=== PATIENT | female | born 1960 | race Caucasian/White ===

== ENCOUNTER → 2020-03-29 08:49 | Outpatient (BNVA) | payer OTHER, SELFPAY | PROVIDERS: Family Provider Nurse Practitioner; PCP Nurse Practitioner; Visit Provider Nurse Practitioner | DX: I10 Essential (primary) hypertension (principal); E03.8 Other specified hypothyroidism; H10.10 Acute atopic conjunctivitis, unspecified eye; K21.9 Gastro-esophageal reflux disease without esophagitis; M81.0 Age-related osteoporosis without current pathological fracture; E78.2 Mixed hyperlipidemia; E66.09 Other obesity due to excess calories | CPT/HCPCS: 80053; 80061; 81000; 84443 ==

== ENCOUNTER 2020-05-17 09:38 | Outpatient (CLI) | payer OTHER, SELFPAY ==
--- NOTE | 2020-05-17 10:00 | MM_ITS ---
WS: [id number] BILATERAL DIGITAL SCREENING MAMMOGRAPHY WITH CAD CLINICAL INFORMATION: screen HISTORY: Screening mammogram. No current complaints. COMPARISON: TECHNIQUE: Bilateral CC and MLO views. FINDINGS: Scattered fibroglandular densities bilaterally. Partially obscured round density upper outer left cierra ast measuring 7.9 mm may represent a small cyst but indeterminant. RECOMMEND FURTHER EVALUATION WITH LEFT DIAGNOSTIC MAMMOGRAPHY SPOT COMPRESSION VIEWS AND ULTRASOUND. A few stable intramammary lymph nodes. A few stable bilateral ovoid nodular densities unchanged. Punc woodward calcifications left breast. MM/[place] [id number] IMPRESSION: BI-RADS: 0-Incomplete: Need additional imaging evaluation FOLLOW UP: Need Additional Imaging
== END 2020-05-17 09:39 | disposition home or self-care (01) ==
LOC: RADSHAW 09:40
PROVIDERS: PCP Nurse Practitioner; Visit Provider Nurse Practitioner
DX: Z12.31 Encounter for screening mammogram for malignant neoplasm of breast (principal); N63.21 Unspecified lump in the left breast, upper outer quadrant
CPT/HCPCS: 77067

== ENCOUNTER 2020-06-07 08:29 | Outpatient (CLI) | payer OTHER, SELFPAY ==
--- NOTE | 2020-06-07 08:00 | MM_ITS ---
WS: [id number] LEFT DIGITAL MAMMOGRAPHY WITH CAD CLINICAL INFORMATION: abnormal mammo COMPARISON: May 17, 2020 TECHNIQUE: 2 views of the left breast were obtained. FINDINGS: Scattered fibroglandular densities of the left breast. Again seen is the partially obscured round den sity upper outer left breast measuring 7.9 mm. This is unchanged since recent examination. Ultrasound is pending. A few stable ovoid nodular densities unchanged. Ultrasound is pending. . ULTRASOUND BREAST LEFT TECHNIQUE: Ultrasound left breast focused area of concern. CLINICAL INFORMATION: abnormal mammo COMPARISON: None. FINDINGS: Ultrasound left breast 12:00 position 2 cm from the nipple. Incidental echogenic lipoma measuring 9.7 x 8.1 x 1.1 CM. Incidental lymph node 2:00 position measuring 7.7x8.5 mm. No suspicious lesions. No lesions to target for biopsy. MM/[place] [id number] IMPRESSION: BI-RADS: 2-Benign FOLLOW UP: 1 Year Follow-up Recommend return to annual screening mammography.
--- NOTE | 2020-06-07 08:45 | US_ITS ---
WS: [id number] LEFT DIGITAL MAMMOGRAPHY WITH CAD CLINICAL INFORMATION: abnormal mammo COMPARISON: May 17, 2020 TECHNIQUE: 2 views of the left breast were obtained. FINDINGS: Scattered fibroglandular densities of the left breast. Again seen is the partially obscured round den sity upper outer left breast measuring 7.9 mm. This is unchanged since recent examination. Ultrasound is pending. A few stable ovoid nodular densities unchanged. Ultrasound is pending. . ULTRASOUND BREAST LEFT TECHNIQUE: Ultrasound left breast focused area of concern. CLINICAL INFORMATION: abnormal mammo COMPARISON: None. FINDINGS: Ultrasound left breast 12:00 position 2 cm from the nipple. Incidental echogenic lipoma measuring 9.7 x 8.1 x 1.1 CM. Incidental lymph node 2:00 position measuring 7.7x8.5 mm. No suspicious lesions. No lesions to target for biopsy. US/US breast LT limited* [id number] IMPRESSION: BI-RADS: 2-Benign FOLLOW UP: 1 Year Follow-up Recommend return to annual screening mammography.
== END 2020-06-07 08:30 | disposition home or self-care (01) ==
LOC: RADSHAW 08:33
PROVIDERS: PCP Nurse Practitioner; Visit Provider Nurse Practitioner
DX: R92.8 Other abnormal and inconclusive findings on diagnostic imaging of breast (principal)
CPT/HCPCS: 76642; 77065

== ENCOUNTER → 2020-07-04 15:03 | Outpatient (BNVA) | payer OTHER, SELFPAY | PROVIDERS: PCP Nurse Practitioner; Visit Provider Podiatrist Foot & Ankle Surgery | DX: M77.32 Calcaneal spur, left foot (principal); M79.672 Pain in left foot | CPT/HCPCS: 73630 ==

== ENCOUNTER → 2020-08-28 09:11 | Outpatient (BNVA) | payer OTHER, SELFPAY | PROVIDERS: PCP Nurse Practitioner; Visit Provider Nurse Practitioner | DX: E03.8 Other specified hypothyroidism (principal); I10 Essential (primary) hypertension; E78.2 Mixed hyperlipidemia | CPT/HCPCS: 80053; 84439; 84443; 84481 ==

== ENCOUNTER → 2020-09-01 13:57 | Outpatient (BNVA) | payer OTHER, SELFPAY | PROVIDERS: PCP Nurse Practitioner; Visit Provider Nurse Practitioner | DX: Z20.828 Contact with and (suspected) exposure to other viral communicable diseases (principal); U07.1 COVID-19 | CPT/HCPCS: 87635 ==

== ENCOUNTER → 2021-04-10 08:36 | Outpatient (BNVA) | payer OTHER, SELFPAY | PROVIDERS: PCP Nurse Practitioner; Visit Provider Nurse Practitioner | DX: I10 Essential (primary) hypertension (principal); E55.9 Vitamin D deficiency, unspecified; E03.8 Other specified hypothyroidism; K21.9 Gastro-esophageal reflux disease without esophagitis; M81.0 Age-related osteoporosis without current pathological fracture; F41.9 Anxiety disorder, unspecified | CPT/HCPCS: 80053; 80061; 81000; 82306; 82607; 82627; 84439; 84443; 84481; 85025 ==

== ENCOUNTER 2021-05-21 11:03 | Outpatient (CLI) | payer OTHER, SELFPAY ==
--- NOTE | 2021-05-21 11:00 | MM_ITS ---
WS: [id number] BILATERAL DIGITAL SCREENING MAMMOGRAPHY WITH CAD CLINICAL INFORMATION: annual mammo HISTORY: Screening mammogram. No current complaints. COMPARISON: May 17, 2020 TECHNIQUE: Bilateral CC and MLO views. FINDINGS: Scattered fibroglandular densities bilaterally. No suspicious focal mass, asymmetry, calcifications, or architectural distortion. No evidence of malignancy. A few punctate calcifications. MM/[place] [id number] IMPRESSION: BI-RADS: 2-Benign FOLLOW UP: 1 Year Follow-up Recommend return to annual screening mammography.
== END 2021-05-21 11:04 | disposition home or self-care (01) ==
LOC: RADSHAW 11:06
PROVIDERS: PCP Nurse Practitioner; Visit Provider Nurse Practitioner
DX: Z12.31 Encounter for screening mammogram for malignant neoplasm of breast (principal)
CPT/HCPCS: 77067

== ENCOUNTER → 2021-06-26 08:04 | Outpatient (BNVA) | payer OTHER, SELFPAY | PROVIDERS: PCP Nurse Practitioner; Referring Provider Nurse Practitioner; Visit Provider Internal Medicine | DX: E88.81 Metabolic syndrome and other insulin resistance (principal); E66.9 Obesity, unspecified; E03.8 Other specified hypothyroidism; E53.8 Deficiency of other specified B group vitamins; Z90.722 Acquired absence of ovaries, bilateral; Z90.79 Acquired absence of other genital organ(s) | CPT/HCPCS: 99205 ==

== ENCOUNTER → 2021-07-02 08:17 | Outpatient (BNVA) | payer OTHER, SELFPAY | PROVIDERS: PCP Nurse Practitioner; Visit Provider Internal Medicine | DX: E03.8 Other specified hypothyroidism (principal); E66.9 Obesity, unspecified; E88.81 Metabolic syndrome and other insulin resistance; Z90.722 Acquired absence of ovaries, bilateral; Z90.79 Acquired absence of other genital organ(s); E53.8 Deficiency of other specified B group vitamins | CPT/HCPCS: 82627; 83036; 84439; 84443 ==

== ENCOUNTER → 2021-07-03 08:03 | Outpatient (BNVA) | payer OTHER, SELFPAY | PROVIDERS: PCP Nurse Practitioner; Visit Provider Nurse Practitioner | DX: R10.9 Unspecified abdominal pain (principal) | CPT/HCPCS: 80076 ==

== ENCOUNTER 2021-08-14 07:56 | Outpatient (CLI) | payer OTHER, SELFPAY ==
--- NOTE | 2021-08-14 08:00 | US_ITS ---
WS: [id number] ULTRASOUND ABDOMEN CLINICAL INFORMATION: R10.9 - Unspecified abdominal pain COMPARISON: None. FINDINGS: Liver Size: Normal. Craniocaudal length: 14.2 cm. Echogenicity: Normal. Surface nodularity: None. Mass (size and location): None. Bile ducts Intrahepatic ducts: Normal. Common bile duct diameter: 0.6 cm. Gallbladder Prior cholecystectomy. Pancreas Normal as visualized. Spleen Splenomegaly: None. Craniocaudal length: 10.6 cm. Right kidney: Normal. Hydronephrosis: None. Size: 11.8 cm x 5.8 cm x 4.5 cm Left kidney: Normal. Hydronephrosis: None. Size: 12.4 cm x 5.2 cm x 4.6 cm. Abdominal aorta and IVC Visualized portions are normal. Ascites: None. US/US abdomen complete* [id number] IMPRESSION: 1. Normal liver. 2. Prior cholecystectomy. 3. Normal common bile duct. 4. No hydronephrosis in either kidney.
== END 2021-08-14 07:57 | disposition home or self-care (01) ==
LOC: US 07:59
PROVIDERS: PCP Nurse Practitioner; Visit Provider Nurse Practitioner
DX: R10.9 Unspecified abdominal pain (principal); Z90.49 Acquired absence of other specified parts of digestive tract
CPT/HCPCS: 76700

== ENCOUNTER → 2021-08-20 09:13 | Outpatient (BNVA) | payer OTHER, SELFPAY | PROVIDERS: PCP Nurse Practitioner; Visit Provider Internal Medicine | DX: E03.8 Other specified hypothyroidism (principal); I10 Essential (primary) hypertension; E88.81 Metabolic syndrome and other insulin resistance | CPT/HCPCS: 80053; 80061; 82627; 84439; 84443 ==

== ENCOUNTER 2021-10-07 20:47 | Emergency (ER) | payer OTHER, SELFPAY ==
--- NOTE | 2021-10-07 20:51 | ECG_ITS ---
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 Measurements Intervals [place] Rate: 66 P: 67 WI: 168 QRS: 68 QRSD: 101 T: 78 QT: 396 QTc: 415 Interpretive Statements SINUS RHYTHM Compared to ECG 10/07/2021 20:56:13 No significant changes Electronically Signed On 10-07-2021 23:58:02 FRUIT CULLER by Boston Murillo M.D. [id number]
--- NOTE | 2021-10-07 20:51 | XRR_ITS ---
PROCEDURE INFORMATION: Exam: XR Chest Exam date and time: 10/07/2021 8:51 PM Age: 61 years old Clinical indication: Angina; Patient HX: Chest heaviness today; Additional info: Cp TECHNIQUE: Imaging protocol: XR of the chest. Views: 1 view. COMPARISON: MRI Shoulder w/wo LEFT [id number] 06/14/2018 1:02 PM FINDINGS: Lungs: Lungs are clear. Pleural spaces: There is no pleural effusion or pneumothorax. Heart/Mediastinum: Cardiomediastinal contours are unremarkable. Bones/joints: There is moderate degenerative disease at the left shoulder. XR/XR chest 1V portable [id number] IMPRESSION: No acute findings.
[2021-10-07 20:59] VITALS: BP 161/92; PULSE 77; RESP 18; TEMP 36.8; O2SAT 95; BMI 33.5
[2021-10-07 21:25] LABS: Basophils # 0.1 10^3/uL (0.0-0.1); Eosinophils # 0.3 10^3/uL (0.0-0.8); Eosinophils % 3.2 %; Hematocrit 41.7 % (37.0-47.0); Hemoglobin 13.8 g/dL (11.5-15.3); Lymphocytes # 3.4 10^3/uL (0.8-4.8); Lymphocytes % 40.3 %; Mean Corpuscular HGB Conc 33.1 g/dL (30.0-36.0); Mean Corpuscular Hemoglobin 29.1 pg (28.0-34.0); Mean Corpuscular Volume 87.8 fl (81-99); Mean Platelet Volume 9.5 fL (7.4-10.4); Monocytes # 0.7 10^3/uL (0.2-0.9); Monocytes % 7.8 %; Neutrophils # 3.93 10^3/uL (1.8-7.7); Neutrophils % 47.2 %; Nucleated Red Blood Cells % 0 %; Platelet Count 258 10^3/cmm (130-400); Red Blood Count 4.75 10^6/uL (4.1-5.3); Red Cell Distribution Width 14.1 % (12.1-15.1); White Blood Count 8.3 10^3/uL (4.0-10.0)
[2021-10-07 21:44] LABS: Troponin(5th) Baseline 6 ng/L (0-10)
[2021-10-07 21:45] LABS: Alanine Aminotransferase 22 U/L (0-33); Albumin Level 4.3 g/dL (3.5-5.2); Alkaline Phosphatase 91 IU/L (35-105); Aspartate Amino Transferase 17 U/L (0-32); Blood Urea Nitrogen 14 mg/dL (8-23); Calcium 8.9 mg/dL (8.5-10.5); Carbon Dioxide 27 mmol/L (22-29); Chloride 102 mmol/L (98-107); Globulin 2.2 g/dL (1.3-4.6); Glomerular Filtration Rate 84.8 mL/min (90-130); Glucose 114 mg/dL (65-115); Osmolality Calculated 289 mOsm/kg (285-295); Sodium 139 mmol/L (136-145); Total Bilirubin 0.2 mg/dL (0.15-1.2); Total Protein 6.5 g/dL (6.6-8.7)
--- NOTE | 2021-10-07 22:51 | ECG_ITS ---
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 Measurements Intervals [place] Rate: 77 P: 61 RI: 144 QRS: 69 QRSD: 93 T: 82 QT: 365 QTc: 415 Interpretive Statements SINUS RHYTHM No previous ECG available for comparison Electronically Signed On 10-08-2021 17:28:01 HEALTH AND SAFETY INSTRUCTOR by Rivka De Oliveira M.D. [id number]
[2021-10-07 23:35] LABS: Troponin 5 2HR 6.12 ng/L (0-10); Troponin 5 2HR Delta 0.12 ABS# (0-10)
--- NOTE | 2021-10-08 00:25 | ED_ITS ---
HPI - Chest Pain General: Chief Complaint: Chest Pain Stated Complaint: CP Time Seen by Provider: 10/08/21 00:02 Source: patient Mode of arrival: ambulatory Limitations: no limitations History of Present Illness: HPI narrative: 61-year-old female who states that she has been having chest pain over the last day. States that has been the center of her chest along with her upper abdomen and seem to radiate to her shoulder. She states that it is a pressure type pain and went away at home and came back when she been waiting in the waiting room she is currently pain-free. States she is also had some belching does have a history of reflux with his pain is worse than her typical reflux pain. She denies any shortness of breath denies any worsening proving factors does have a history of high blood pressure no heart history but does have a family history of heart disease. Associated symptoms: Reports abdominal pain; Deny dyspnea, fever(s), nausea or vomiting Review of Systems Const: Denies: fever(s), chills, body aches or change in appetite Eyes: Denies: blurry vision or eye discomfort ENMT: Denies: throat pain or dental pain Card: Reports: chest pain Resp: Denies: dyspnea GI: Reports: abdominal pain; Denies: nausea, vomiting or diarrhea : Denies: dysuria Musc: Denies: neck pain or back pain Skin/Breast: Denies: rash Neuro: Denies: headache(s) Psych: Denies: depression Yahir/Lymph: Denies: easy bruising All/Imm: Denies: urticaria PFSH ED PFSH: Medical History Adult onset hypothyroidism Age related osteoporosis Anxiety Chronic constipation Chronic osteoarthritis Essential (primary) hypertension Gastric reflux High risk for fracture due to osteoporosis by DEXA scan Hx MRSA infection Hx of diverticulitis of colon Mixed hyperlipidemia Obesity (BMI 35.0-39.9 without comorbidity) Obesity due to excess calories with serious comorbidity Obstructive sleep apnea cpap Seasonal allergic conjunctivitis Surgical History History of esophagogastroduodenoscopy (EGD) History of kidney surgery (~1993) Hx of cholecystectomy (~1997) Hx of hysterectomy (~1994) Hx of tonsillectomy Family History Other Cancer Diabetes Hypertension Denies family history of Dementia Stroke Social History Second hand smoke exposure: No Smoking risk assessment/counseling performed?: No Alcohol intake: never Desire information about alcohol rehabilitation?: No Counseling given: No Desire information about substance/drug rehabilitation?: No Counseling given: No Adopted: No Caregiver/support person: No Lives independently: Yes Household members: spouse Housing: House Marital status: Number of children: 2 service: No Current occupational status: retired History of recent travel: No Current gender identity: Female Physical Exam Const: COMMON NORMALS: no acute distress, patient oriented x3 and healthy appearing HENMT: COMMON NORMALS: normocephalic and atraumatic HEAD & SCALP: normocephalic and atraumatic Eye: COMMON NORMALS: Equal, round and reactive pupils present and EOMs intact bilaterally PUPIL: Yes Equal, round and reactive pupils present Neck/C-Spine: COMMON NORMALS: full ROM and supple Chest: COMMONS NORMALS: normal inspection of the chest and normal palpation of entire chest wall Resp: COMMON NORMALS: normal respiratory effort, No retractions, No use of accessory muscles and clear to auscultation bilaterally AUSCULTATION: clear to auscultation bilaterally Cardio: COMMON NORMALS: regular rate, regular rhythm and No murmurs present (Cardio) RATE: regular rate RHYTHM: regular rhythm GI: COMMON NORMALS: Normal to inspection, nondistended, normoactive bowel sounds present, Soft to palpation, non-tender and no masses PALPATION: Yes Soft to palpation Extremity: COMMON NORMALS: normal to inspection and full ROM Neuro: COMMON NORMALS: patient oriented x3, moves all extremities and no focal motor deficits Psych: COMMON NORMALS: mental status grossly normal, Normal thought process present and cooperative THOUGHT PROCESS: Normal thought process present Skin: COMMON NORMALS: no rashes or lesions noted and no wounds GENERAL SKIN EXAM: no rashes or lesions noted Course Vital Signs: Vital signs: Vital Signs Temperature 98.3 F 10/07/21 20:59 Pulse Rate 77 10/07/21 20:59 Respiratory Rate 18 10/07/21 20:59 Blood Pressure 161/92 10/07/21 20:59 Pulse Oximetry 95 10/07/21 20:59 MDM - Chest Pain MDM Narrative: Medical decision making narrative: Patient presents for chest pains atypical in nature her initial repeat troponin are both negative x-ray looks normal as well she has no signs of pulmonary embolism or dissection. We will get her follow-up with cardiology she is return if she has any worsening pain she understands agrees to plan. Lab Data: Labs: Lab Results 10/07/21 10/07/21 10/07/21 21:05 21:05 21:05 WBC 8.3 10^3/uL 10^3/ uL (4.0-10.0) RBC 4.75 10^6/uL 10^6 /uL (4.1-5.3) Hgb 13.8 g/dL g/dL (11.5-15.3) Hct 41.7 % % (37.0-47.0) MCV 87.8 fl fl (81-99) MCH 29.1 pg pg (28.0-34.0) MCHC 33.1 g/dL g/dL (30.0-36.0) RDW 14.1 % % (12.1-15.1) Plt Count 258 10^3/cmm 10^3 /cmm (130-400) MPV 9.5 fL fL (7.4-10.4) Neut % (Auto) 47.2 % % Lymph % (Auto) 40.3 % % [place] % (Auto) 7.8 % % Eos % (Auto) 3.2 % % Baso % (Auto) 1.0 % % Neut # (Auto) 3.93 10^3/uL 10^3 /uL (1.8-7.7) Lymph # (Auto) 3.4 10^3/uL 10^3/ uL (0.8-4.8) [place] # (Auto) 0.7 10^3/uL 10^3/ uL (0.2-0.9) Eos # (Auto) 0.3 10^3/uL 10^3/ uL (0.0-0.8) Baso # (Auto) 0.1 10^3/uL 10^3/ uL (0.0-0.1) Nucleated RBC % (a uto) 0 % % Nucleated RBCs # 0.0 /100WBC /100W BC Sodium 139 mmol/L mmol/L (136-145) Potassium 4.0 mmol/L mmol/L (3.5-5.1) Chloride 102 mmol/L mmol/L (98-107) Carbon Dioxide 27 mmol/L mmol/L (22-29) Anion Gap 14.0 (5-19) BUN 14 mg/dL mg/dL (8-23) Creatinine 0.7 mg/dL mg/dL (0.5-0.9) GFR Calculation 84.8 mL/min L mL/ min (90-130) Glucose 114 mg/dL mg/dL (65-115) Calculated Osmolal ity 289 mOsm/kg mOsm/ kg (285-295) Calcium 8.9 mg/dL mg/dL (8.5-10.5) Total Bilirubin 0.2 mg/dL mg/dL (0.15-1.2) AST 17 U/L U/L (0-32) ALT 22 U/L U/L (0-33) Alkaline Phosphata se 91 IU/L IU/L (35-105) Troponin T Baselin e 6 ng/L ng/L (0-10) Troponin T 120 Min [place] Troponin T Total Protein 6.5 g/dL L g/dL (6.6-8.7) Albumin 4.3 g/dL g/dL (3.5-5.2) Globulin 2.2 g/dL g/dL (1.3-4.6) Lipase 10/07/21 10/07/21 23:02 23:02 WBC RBC Hgb Hct MCV MCH MCHC RDW Plt Count MPV Neut % (Auto) Lymph % (Auto) [place] % (Auto) Eos % (Auto) Baso % (Auto) Neut # (Auto) Lymph # (Auto) [place] # (Auto) Eos # (Auto) Baso # (Auto) Nucleated RBC % (a uto) Nucleated RBCs # Sodium Potassium Chloride Carbon Dioxide Anion Gap BUN Creatinine GFR Calculation Glucose Calculated Osmolal ity Calcium Total Bilirubin AST ALT Alkaline Phosphata se Troponin T Baselin e Troponin T 120 Min [place] 6.12 ng/L ng/L (0-10) [place] Troponin T 0.12 ABS# ABS# (0-10) Total Protein Albumin Globulin Lipase 49 U/L U/L (13-60) Imaging Data^: CXR: Attestation: I personally reviewed and interpreted this imaging study as follows: My impression: no acute abnormality EKG Data^: EKG 1: Attestation: I personally reviewed and interpreted this EKG as follows: EKG interpretation date: 10/07/21 EKG interpretation time: 20:56 Interpretation: nsr hr [address] or t wave abnormalities qrs 93 qtc 397 EKG 2: Attestation: I personally reviewed and interpreted this EKG as follows: EKG interpretation date: 10/07/21 EKG interpretation time: 23:31 Interpretation: nsr hr [address] or t wave abnormalities qrs 101 qtd 409 Discharge Plan Discharge Patient Disposition: Home Clinical Impression: Chest pain Qualifiers: Chest pain type: unspecified Qualified Code(s): R07.9 - Chest pain, unspecified Condition: Stable Prescriptions: No Action aspirin [Adult Aspirin Regimen] 81 mg tablet,delayed release (DR/EC) 81 mg PO DAILY RF: 0 cholecalciferol (vitamin D3) 1,250 mcg (50,000 unit) capsule 50,000 unit PO .weekly RF: 0 vitamin K2 100 mcg capsule 100 mcg PO .weekly RF: 0 potassium gluconate 600 mg (99 mg) tablet 600 mg PO DAILY RF: 0 magnesium 500 mg tablet 500 mg PO DAILY RF: 0 multivitamin Tablet 1 tab PO DAILY RF: 0 ashwagandha root extract 300 mg capsule 5,200 mg PO DAILY RF: 0 fluticasone propionate [Flonase Allergy Relief] 50 mcg/actuation spray,suspension 2 spray intranasal DAILY RF: 0 coenzyme [id number] 100-100 mg-unit capsule 100 cap PO DAILY RF: 0 pyridoxine (vitamin B6) 100 mg tablet 50 mg PO DAILY RF: 0 MSM 1,000 mg capsule 1,000 mg PO ONCE RF: 0 7-oxo-dhea, micronized (bulk) [7-Keto DHEA, Micronized] 100 % powder 100 ea miscellaneous DAILY RF: 0 zolpidem [Ambien] 5 mg tablet 5 mg PO .bedtime Qty: 30 RF: 4 levothyroxine 50 mcg tablet 50 mcg PO DAILY Qty: 95 RF: 3 cetirizine [Zyrtec] 10 mg tablet 10 mg PO DAILY Qty: 90 RF: 0 esomeprazole magnesium [Nexium] 20 mg capsule,delayed release(DR/EC) 20 mg PO QDAY Qty: 90 RF: 0 ibandronate [Boniva] 150 mg tablet 150 mg PO .monthly Qty: 3 RF: 0 lisinopril 10 mg tablet 10 mg PO DAILY Qty: 90 RF: 0 pravastatin 20 mg tablet 20 mg PO DAILY Qty: 90 RF: 0 Discharge Orders: Discharge ED (Routine); Ordered 10/08/21 Ordered By: Fabio Mars Referrals: Lisette Sheehan, RAILROAD DESIGN CONSULTANT-C [Primary Care Provider] - Rivka De Oliveira MD [Physician] - 1-3 days Discharge Diet: Advance as tolerated Discharge Activity: Resume usual activity Patient Instructions: Chest Pain (ED) Coding Level of Care Code ED Refrigerating Oiler for Chg Fwd Exam Comprehensive
[2021-10-08] MEDS: lidocaine 2% viscous 15 ML, aluminum-mag hydrox-simethicon 30 ML, sucralfate oral liq 1 GM PO (00:29)
[2021-10-08 01:12] LABS: Lipase 49 U/L (13-60)
[2021-10-08 01:41] VITALS: BP 128/80; PULSE 68; RESP 18; O2SAT 95
--- NOTE | 2021-10-08 12:39 | DCPLANNER ---
Addendum entered by Megan Perkins 11/08/21 13:10: Patient had a [facility] appointment scheduled with [facility] - patient did attend appointment. Original Note: is/it project manager had message to schedule a follow up appointment for patient with [facility]. is/it project manager called [facility], spoke with Amparo, gave clinic patients information. A follow up appointment was scheduled for October 282021 at 12:[address] De Oliveira at [facility]. is/it project manager called patient and gave patient the appointment information.
== END 2021-10-08 01:42 | disposition home or self-care (01) ==
PROVIDERS: Emergency Provider Emergency Medicine; PCP Nurse Practitioner
DX: R07.9 Chest pain, unspecified (principal); Z79.82 Long term (current) use of aspirin; I10 Essential (primary) hypertension; E78.2 Mixed hyperlipidemia
CPT/HCPCS: 71045; 80053; 83690; 84484; 85025; 93005; 99283

== ENCOUNTER 2021-12-03 11:29 | Outpatient (CLI) | payer OTHER, SELFPAY ==
--- NOTE | 2021-12-03 | USCV_ITS ---
Dobutamine Stress Echo Bela Jennings Age: 61 Gender: F : 1960 Exam Date: 12/03/2021 12:24 Ordering Phys: Rivka De Oliveira MD ([email or web address]) Technologist: Riley Malcolm Exam Location: [facility] [place] Indication: Chest pain Rhythm: Atrial fibrillation Patient History: Chest pain Cardiac Medications: NONE Medications in past 24 hours: Contrast: Total Dose (mL): Stress Results Protocol: Pharmacologic Peak Dose (???g/kg/min): Duration (min:sec): 7:22 Atropine:(mg) Target HR: 134 Double Product: 62120 Resting HR: 62 Resting BP: 111 / 84 Peak HR: 136 Peak BP: 124 / 84 Max Predicted HR: 158 86 % Max Predicted HR Stress Summary: The hemodynamic response to stress was normal. BP Response: Normal Reason for Termination: The patients target heart rate was achieved Cardiac Symptoms: None ECG Analysis Resting EKG: Stress EKG: Arrhythmia: MEASUREMENTS (Male/Female) Normal Values FINDINGS 1. At the baseline, the patient's blood pressure was 111/84 mmHg with a heart rate of 62 beats per minute. The electrocardiogram showed normal sinus rhythm with normal ST-Ts. The chest examination revealed normal breath sounds with no rales or rhonchi. The CVS examination revealed normal heart sounds with no S3 or S4. 2. The Dobutamine was infused over 7 minutes 22 minutes minutes. The maximum heart rate obtained was 136 per minute. The patient attained 86% of the maximum predicted heart rate. The blood pressure at the end of the infusion was 103/56 mmHg. Patient did not have any chest pain or any significant electrocardiogram changes with the Dobutamine infusion. The physical examination remained unchanged. No arrhythmias were seen on the monitor. 3. At the baseline, the patient's echocardiogram revealed normal cardiac chamber sizes with normal LV ejection fraction of 60%. Segmental wall motion analysis revealed no regional wall motion abnormality. There were no intracardiac masses. No significant pericardial effusion. Aortic root appears to be upper limits of normal size. 4. With the low and the peak Dobutamine infusion, there was good augmentation of all the segments with no Dobutamine-induced wall motion abnormalities. 5. During the recovery phase, the patient did not have any symptoms or any EKG changes. The blood pressure at the end of the recovery phase was 114/56 mmHg with a heart rate of 84 beats per minute. 6. The echocardiogram during the recovery phase also did not reveal any new changes. CONCLUSIONS 1. Normal electrocardiogram response to Dobutamine infusion. 2. Normal echocardiographic response to Dobutamine infusion. 3. No Dobutamine-induced chest pain or cardiac arrhythmia. 4. Clinical correlation is recommended. Rivka De Oliviera MD (Electronically Signed) Final Date: 09 December 2021 12:31 S
[2021-12-03 11:58] VITALS: BMI 34.7
--- NOTE | 2021-12-03 11:58 | ECG_ITS ---
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 Interpretive Statements NAME OF STUDY: DOBUTAMINE STRESS ECHOCARDIOGRAM INDICATION: Chest Pain PROCEDURE: At the baseline, the blood pressure was 111/84 mmHg, oxygen saturation 92% with a heart rate of 62 beats per minute. The electrocardiogram showed normal sinus rhythm, normal axis with normal ST and T's. The dobutamine was infused over a period of 7 minutes 22 seconds. The maximum heart rate obtained was 136 (86% of the maximum predicted heart rate). The blood pressure at that time was 103/56 mmHg and oxygen saturation of 95%. The patient did not have any chest pain or any significant electrocardiogram changes with the dobutamine infusion. The physical examination remained unchanged. No arrhythmias were seen on the monitor. During the recovery phase, the patient did not have any specific symptoms. The blood pressure at the end of the recovery phase was 114/56 mmHg, oxygen saturation 93% with a heart rate of 84 beats per minute. CONCLUSION: 1. No significant EKG changes with dobutamine infusion. 2. No patient symptoms or arrhythmias with dobutamine infusion. 3. Functional status could not be assessed given pharmacological protocol. 4. Echocardiogram portion of the study will be reported separately. Electronically Signed On 12-07-2021 12:58:12 CDT by Rivka De Oliveira M.D. [id number]
[2021-12-03] MEDS: DOBUTtamine 200 MG in sodium chloride 0.9% 34 ML 13 MG IV (12:27)
[2021-12-03 12:54] VITALS: BP 114/56; PULSE 82
== END 2021-12-03 11:30 | disposition home or self-care (01) ==
LOC: RAD 11:44 → CDL 11:57
PROVIDERS: PCP Nurse Practitioner; Visit Provider Internal Medicine Cardiovascular Disease
DX: R07.9 Chest pain, unspecified (principal)
CPT/HCPCS: 93017; 93350; J1250; J7050

== ENCOUNTER → 2021-12-06 09:53 | Outpatient (BNVA) | payer OTHER, SELFPAY | PROVIDERS: PCP Nurse Practitioner; Visit Provider Surgery | DX: Z20.822 Contact with and (suspected) exposure to COVID-19 (principal); Z01.812 Encounter for preprocedural laboratory examination | CPT/HCPCS: 87635 ==

== ENCOUNTER 2021-12-11 08:06 | Day surgery (SDC) | payer OTHER, SELFPAY ==
[2021-12-09 09:28] VITALS: BMI 34.7
--- NOTE | 2021-12-11 08:41 | P.ANESASSM_ITS ---
Pre-Anesthetic Assessment Height/Weight: Height 1.57 m Weight 86.183 kg Preop Diagnosis: upper gi symptoms Operation Date: 12/11/21 09:30 Proposed Procedures p EGD 58766/11197/z12.11/r10.13(Not Applicable) - Scotty Lopez MD s Colonoscopy(Not Applicable) - Scotty Lopez MD Familial anesthetic complications: None Was Beta Ariel taken within 24 hours: N/A Was Clonidine taken within 24 hours: N/A Last intake: 12/10/21 Social No alcohol and No tobacco Exam alert, oriented x 3 and regular rate & rhythm Diminished breath sounds b/l Airway Submandibular: within normal limits Cervical ROM: within normal limits Mallampati: Class II Dentition: false Pulmonary Exertional Dyspnea and Sleep Apnea CV/HEM METS = 4 Stress Test 12/07/21 CONCLUSION: 1.? No significant EKG changes with dobutamine infusion. 2.? No patient symptoms or arrhythmias with dobutamine infusion. 3.? Functional status could not be assessed given pharmacological protocol. 4.? Echocardiogram portion of the study will be reported separately. Hx of kidney surgery Hepatic None reported GI Gastroesophageal Reflux Disease Metabolic Thyroid Disease [facility] [place] Osteoarthritis/DJD Neuropsych Anxiety Anesthetic Plan ASA status: 3 (61 year old female with FIGUEROA on CPAP, former smoker, reflux, htn, anxiety , osteoporosis ) Anesthesia: Anesthesia Evaluation and General Other: I discussed with the patient risks, goals, and benefits of MAC and general anesthesia. We discussed spectrum of MAC anesthesia including conversion to general as well as possibility of recall of intraoperative stimuli including discomfort/pain. Patient agrees to proceed with MAC. Risk of > 500 ml blood loss (7ml/kg in children): No Medications/Allergies Home Medications Medication Instructions Recorded Confirmed Last Taken Type zolpidem 5 mg tablet (Ambien) 5 mg PO .bedtime #30 tab 05/10/21 12/09/21 Unknown Rx ashwagandha root extract 300 mg 5,200 mg PO DAILY cap 06/26/21 12/09/21 Unknown History capsule aspirin 81 mg tablet,delayed 81 mg PO DAILY 06/26/21 12/09/21 Unknown History release (Adult Aspirin Regimen) cholecalciferol (vitamin D3) 1,250 50,000 unit PO .weekly cap 06/26/21 12/09/21 Unknown History mcg (50,000 unit) capsule coenzyme [id number] 100 mg-100 100 cap PO DAILY cap 06/26/21 12/09/21 Unknown History unit capsule fluticasone propionate 50 2 spray INTRANASAL DAILY PRN 06/26/21 12/09/21 Unknown History mcg/actuation nasal spray,suspension (Flonase Allergy Relief) magnesium 500 mg tablet 400 mg PO DAILY tab 06/26/21 12/09/21 Unknown History multivitamin 1 tab PO DAILY 06/26/21 12/09/21 Unknown History potassium gluconate 600 mg (99 mg) 600 mg PO DAILY 06/26/21 12/09/21 Unknown History tablet pyridoxine (vitamin B6) 100 mg 50 mg PO DAILY 06/26/21 12/09/21 Unknown History tablet vitamin K2 100 mcg capsule 100 mcg PO .weekly cap 06/26/21 12/09/21 Unknown History levothyroxine 50 mcg tablet 50 mcg PO DAILY #95 tab 07/17/21 12/09/21 Unknown Rx cetirizine 10 mg tablet (Zyrtec) 10 mg PO DAILY #90 tab 09/27/21 12/09/21 Unknown Rx ibandronate 150 mg tablet (Boniva) 150 mg PO .monthly #3 tab 09/27/21 12/09/21 Unknown Rx pravastatin 20 mg tablet 20 mg PO DAILY #90 tab 09/27/21 12/09/21 Unknown Rx Corti-trim 1 cap PO TID 10/28/21 12/09/21 Unknown History Fish oil 1 cap PO TID 10/28/21 12/09/21 Unknown History Glouse Formula 2 cap PO DAILY 10/28/21 12/09/21 Unknown History Internal cleanser 2 cap PO BID 10/28/21 12/09/21 Unknown History MRC-6 1 cap PO TID 10/28/21 12/09/21 Unknown History Oscal wD3 1 tab PO DAILY 10/28/21 12/09/21 Unknown History Phentratrim Plus 2 cap PO DAILY 10/28/21 12/09/21 Unknown History Total women oil 1 cap PO TID 10/28/21 12/09/21 Unknown History Trace mineral 2 cap PO DAILY 10/28/21 12/09/21 Unknown History lisinopril 10 mg tablet 10 mg PO DAILY tab 10/29/21 12/09/21 Unknown History furosemide 20 mg tablet (Lasix) 20 mg PO QAM PRN #30 tab 11/29/21 12/09/21 Unknown Rx esomeprazole magnesium 20 mg 20 mg PO BID 12/09/21 12/09/21 Unknown History capsule,delayed release (Nexium) Allergies Allergy/AdvReac Type Severity Reaction Status Date / Time Sulfa (Sulfonamide AdvReac Intermediate anxiety Verified 12/09/21 09:18 Antibiotics) [facility] Anesthesia Medical History Adult onset hypothyroidism Age related osteoporosis Anxiety Chronic constipation Chronic osteoarthritis Essential (primary) hypertension Gastric reflux Hx MRSA infection Hx of diverticulitis of colon Mixed hyperlipidemia Obstructive sleep apnea cpap Seasonal allergic conjunctivitis Surgical History History of colonoscopy History of esophagogastroduodenoscopy (EGD) History of kidney surgery (~1993) Hx of cholecystectomy (~1997) Hx of hysterectomy (~1994) Hx of tonsillectomy Family History Other Cancer Diabetes Hypertension Denies family history of Dementia Stroke Social History Smoking and tobacco status: former smoker Second hand smoke exposure: No Smoking risk assessment/counseling performed?: No Alcohol intake: never Desire information about alcohol rehabilitation?: No Counseling given: No Desire information about substance/drug rehabilitation?: No Counseling given: No Adopted: No Caregiver/support person: No Lives independently: Yes Household members: spouse Housing: House Marital status: Number of children: 2 service: No Current occupational status: retired History of recent travel: No Current gender identity: Female Data Anesthesia Cardiac Studies: Stress Echocardiogram 12/03/21
[2021-12-11 08:58] VITALS: BP 140/80; PULSE 70; RESP 18; TEMP 36.8; O2SAT 95
[2021-12-11] MEDS: sodium chloride 0.9% 1,000 ML 30 ML IV (09:02)
--- NOTE | 2021-12-11 10:00 | P.HP_ITS ---
Same Day Surgery H&P Indication for Procedure/HPI DATE OF PROCEDURE: December 11, 2021 CHIEF COMPLAINT/INDICATIONFOR SURGICAL PROCEDURE: Epigastric pain/screening colonoscopy PREOP DIAGNOSIS: upper gi symptoms PLANNED PROCEDURE: Operation Date: 12/11/21 09:30 Proposed Procedures p EGD [id number]/z12.11/r10.13(Not Applicable) - Scotty Lopez MD s Colonoscopy(Not Applicable) - Scotty Lopez MD Medications/Allergies* Home Medications Medication Instructions Recorded Confirmed Type kim root extract 300 mg 5,200 mg PO DAILY cap 06/26/21 12/11/21 History capsule aspirin 81 mg tablet,delayed 81 mg PO DAILY 06/26/21 12/11/21 History release (Adult Aspirin Regimen) cholecalciferol (vitamin D3) 1,250 50,000 unit PO .weekly cap 06/26/21 12/11/21 History mcg (50,000 unit) capsule coenzyme [id number] 100 mg-100 100 cap PO DAILY cap 06/26/21 12/11/21 History unit capsule fluticasone propionate 50 2 spray INTRANASAL DAILY PRN 06/26/21 12/11/21 History mcg/actuation nasal spray,suspension (Flonase Allergy Relief) magnesium 500 mg tablet 400 mg PO DAILY tab 06/26/21 12/11/21 History multivitamin 1 tab PO DAILY 06/26/21 12/09/21 History potassium gluconate 600 mg (99 mg) 600 mg PO DAILY 06/26/21 12/11/21 History tablet pyridoxine (vitamin B6) 100 mg 50 mg PO DAILY 06/26/21 12/11/21 History tablet vitamin K2 100 mcg capsule 100 mcg PO .weekly cap 06/26/21 12/11/21 History Corti-trim 1 cap PO TID 10/28/21 12/11/21 History Fish oil 1 cap PO TID 10/28/21 12/11/21 History Glouse Formula 2 cap PO DAILY 10/28/21 12/11/21 History Internal cleanser 2 cap PO BID 10/28/21 12/11/21 History MRC-6 1 cap PO TID 10/28/21 12/11/21 History Oscal wD3 1 tab PO DAILY 10/28/21 12/11/21 History Phentratrim Plus 2 cap PO DAILY 10/28/21 12/11/21 History Total women oil 1 cap PO TID 10/28/21 12/11/21 History Trace mineral 2 cap PO DAILY 10/28/21 12/11/21 History lisinopril 10 mg tablet 10 mg PO DAILY tab 10/29/21 12/11/21 History esomeprazole magnesium 20 mg 20 mg PO BID 12/09/21 12/11/21 History capsule,delayed release (Nexium) Allergies/Adverse Reactions Allergy/AdvReac Type Severity Reaction Status Date / Time Sulfa (Sulfonamide AdvReac Intermediate anxiety Verified 12/09/21 09:18 Antibiotics) Current Medications: Generic Name Dose Route Start Last Admin Trade Name Freq PRN Reason Stop Dose Admin Sodium Chloride 1,000 mls @ 30 mls/hr 12/11/21 08:30 12/11/21 09:02 Sodium Chloride 0.9% IV 12/12/21 08:29 30 mls/hr .Q24H JEY Administration Pertinent History/Comorbid Conditions* Medical History (Updated 11/01/21 @ 09:33 by Scotty Lopez MD) Adult onset hypothyroidism Age related osteoporosis Anxiety Chronic constipation Chronic osteoarthritis Essential (primary) hypertension Gastric reflux Hx MRSA infection Hx of diverticulitis of colon Mixed hyperlipidemia Obstructive sleep apnea cpap Seasonal allergic conjunctivitis Surgical History (Updated 11/01/21 @ 09:17 by Scotty Lopez MD) History of colonoscopy History of esophagogastroduodenoscopy (EGD) History of kidney surgery (~1993) Hx of cholecystectomy (~1997) Hx of hysterectomy (~1994) Hx of tonsillectomy Family History (Updated 03/29/20 @ 08:23 by YOHANNES Hilton) Diabetes Cancer Hypertension Denies family history of Dementia Stroke Social History Smoking and tobacco status: former smoker Second hand smoke exposure: No Smoking risk assessment/counseling performed?: No Alcohol intake: never Desire information about alcohol rehabilitation?: No Counseling given: No Desire information about substance/drug rehabilitation?: No Counseling given: No Adopted: No Caregiver/support person: No Lives independently: Yes Household members: spouse Housing: House Marital status: Number of children: 2 service: No Current occupational status: retired History of recent travel: No Current gender identity: Female Pertinent Exam Findings alert, oriented x 3 and regular rate & rhythm Recommendations Surgery/Procedure today Coding Level of Care Code 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
--- NOTE | 2021-12-11 10:41 | ANE.PACU2 ---
Inpatient post-anesthesia follow up: Airway intact: Yes Vital signs: Temperature 98.2 F Pulse Rate 70 Respiratory Rate 18 Blood Pressure 140/80 Pulse Oximetry 95 Oxygen Delivery Me thod Room Air Oxygen Flow Rate Fraction of Inspir ed Oxygen Hydration adequate: Yes Nausea and vomiting: No Pain level: 1 Mental status: Baseline
[2021-12-11 10:42] VITALS: BP 116/78; PULSE 61; RESP 16; TEMP 36.3; O2SAT 96
[2021-12-11 10:57] VITALS: BP 131/65; PULSE 59; RESP 16; TEMP 36.6; O2SAT 96
--- NOTE | 2021-12-11 16:07 | ANE.PACU2 ---
Inpatient post-anesthesia follow up: Airway intact: Yes Vital signs: Temperature 97.8 F Pulse Rate 59 Respiratory Rate 16 Blood Pressure 131/65 Pulse Oximetry 96 Oxygen Delivery Me thod Room Air Oxygen Flow Rate Fraction of Inspir ed Oxygen Hydration adequate: Yes Nausea and vomiting: No Pain level: 1 Mental status: Baseline
== END 2021-12-11 11:03 | disposition home or self-care (01) ==
PROVIDERS: PCP Nurse Practitioner; Visit Provider Surgery
PROC: 0DJ08ZZ Inspection of Upper Intestinal Tract, Via Natural or Artificial Opening Endoscopic (ICD-10-PCS; CPT 43235; principal; 2021-12-11 09:30)
PROC: 0DJD8ZZ Inspection of Lower Intestinal Tract, Via Natural or Artificial Opening Endoscopic (ICD-10-PCS; CPT 45378; 2021-12-11 09:30)
DX: Z12.11 Encounter for screening for malignant neoplasm of colon (principal); R10.13 Epigastric pain; E03.9 Hypothyroidism, unspecified; M81.0 Age-related osteoporosis without current pathological fracture; F41.9 Anxiety disorder, unspecified; Z86.14 Personal history of Methicillin resistant Staphylococcus aureus infection; E78.2 Mixed hyperlipidemia; G47.33 Obstructive sleep apnea (adult) (pediatric); Z87.891 Personal history of nicotine dependence; K57.30 Diverticulosis of large intestine without perforation or abscess without bleeding; K21.9 Gastro-esophageal reflux disease without esophagitis
CPT/HCPCS: 43239; 45378; 88305; 88342; J2704; J7030

== ENCOUNTER → 2021-12-31 15:16 | Outpatient (BNVA) | payer OTHER, SELFPAY | PROVIDERS: PCP Nurse Practitioner; Visit Provider Nurse Practitioner | DX: K21.9 Gastro-esophageal reflux disease without esophagitis (principal); M54.50 Low back pain, unspecified; M79.605 Pain in left leg; E55.9 Vitamin D deficiency, unspecified; E03.8 Other specified hypothyroidism | CPT/HCPCS: 82306; 82607; 84443 ==

== ENCOUNTER → 2022-01-01 13:05 | Outpatient (BNVA) | payer OTHER, SELFPAY | PROVIDERS: PCP Nurse Practitioner; Visit Provider Nurse Practitioner | DX: M54.50 Low back pain, unspecified (principal); M79.605 Pain in left leg; M85.88 Other specified disorders of bone density and structure, other site | CPT/HCPCS: 72100; 73552; 73590; 73630 ==

== ENCOUNTER → 2022-01-16 12:50 | Outpatient (BNVA) | payer OTHER, SELFPAY | PROVIDERS: PCP Nurse Practitioner; Referring Provider Nurse Practitioner; Visit Provider Physician Assistant | DX: M54.50 Low back pain, unspecified (principal); M79.605 Pain in left leg; M43.16 Spondylolisthesis, lumbar region | CPT/HCPCS: 72110 ==

== ENCOUNTER 2022-01-31 06:00 | Outpatient (RCR) | payer OTHER, SELFPAY | END 2022-02-11 23:59 | disposition home or self-care (01) | LOC: APT 06:00 | PROVIDERS: PCP Nurse Practitioner; Referring Provider Physician Assistant; Visit Provider Physician Assistant | DX: M54.50 Low back pain, unspecified (principal); M79.606 Pain in leg, unspecified | CPT/HCPCS: 97110; 97140; 97161 ==

== ENCOUNTER 2022-02-12 06:00 | Outpatient (RCR) | payer OTHER, SELFPAY | END 2022-03-13 23:59 | disposition home or self-care (01) | LOC: APT 06:00 | PROVIDERS: PCP Nurse Practitioner; Referring Provider Physician Assistant; Visit Provider Physician Assistant | DX: M54.50 Low back pain, unspecified (principal); M79.662 Pain in left lower leg | CPT/HCPCS: 97110; 97140 ==

== ENCOUNTER → 2022-02-18 09:46 | Outpatient (BNVA) | payer OTHER, SELFPAY | PROVIDERS: PCP Nurse Practitioner; Visit Provider Internal Medicine | DX: E03.8 Other specified hypothyroidism (principal); E53.8 Deficiency of other specified B group vitamins; E78.2 Mixed hyperlipidemia | CPT/HCPCS: 82306; 82607; 82627; 83735; 84439; 84443 ==

== ENCOUNTER → 2022-05-13 08:49 | Outpatient (BNVA) | payer OTHER, SELFPAY | PROVIDERS: PCP Nurse Practitioner; Visit Provider Nurse Practitioner | DX: I10 Essential (primary) hypertension (principal); M81.0 Age-related osteoporosis without current pathological fracture; K21.9 Gastro-esophageal reflux disease without esophagitis; M54.50 Low back pain, unspecified; M79.605 Pain in left leg; H10.10 Acute atopic conjunctivitis, unspecified eye; Z12.39 Encounter for other screening for malignant neoplasm of breast; M17.10 Unilateral primary osteoarthritis, unspecified knee; E88.81 Metabolic syndrome and other insulin resistance | CPT/HCPCS: 73562; 80053; 80061 ==

== ENCOUNTER 2022-08-06 08:38 | Outpatient (CLI) | payer OTHER, SELFPAY ==
--- NOTE | 2022-08-06 08:30 | CT_ITS ---
WS: [id number] CT LEFT knee, noncontrast HISTORY: pre op planning TECHNIQUE: Protocol for [facility] total knee replacement has been obtained. This includes axial imaging th rough the same side LEFT hip, LEFT knee and LEFT ankle. DLP: 993.22 mGy.cm COMPARISON: None available. Moderate narrowing of the medial and lateral joint spaces LEFT knee. No destructive bone lesion. Mild lateral subluxation of the patella. Normal appearance of the LEFT hip joint. No soft tissue abnormality. Normal alignment LEFT ankle. CT/CT knee LT [facility] IMPRESSION: CT imaging provided for [facility] robotic total knee replacement.
== END 2022-08-06 08:39 | disposition home or self-care (01) ==
LOC: RAD 08:39
PROVIDERS: PCP Nurse Practitioner; Visit Provider Orthopaedic Surgery
DX: M17.12 Unilateral primary osteoarthritis, left knee (principal); Z01.818 Encounter for other preprocedural examination
CPT/HCPCS: 73700

== ENCOUNTER 2022-08-18 14:43 | Observation (INO) | payer OTHER, SELFPAY ==
[2022-08-11 08:57] VITALS: BMI 38.5
--- NOTE | 2022-08-11 09:16 | P.ANESASSM_ITS ---
Pre-Anesthetic Assessment Height/Weight: Height 1.57 m Weight 95.708 kg Preop Diagnosis: Osteoarthritis knee left Operation Date: 08/18/22 12:55 Proposed Procedures p left marilee total knee arthrplasty/ 07019,M17.12(Left) - Naveen Brandon MD Familial anesthetic complications: None Social No alcohol and No tobacco Exam alert, oriented x 3, clear to auscultation bilaterally and regular rate & rhythm Airway Mallampati: Class II Dentition: false Pulmonary Sleep Apnea CV/HEM Hypertension negative stress test 12/03 None reported Hepatic None reported GI Gastroesophageal Reflux Disease Metabolic Diabetes Mellitus, Hyperlipidemia, Morbid Obesity and Thyroid Disease destini b 12 def Musc/skel None reported Neuropsych None reported Anesthetic Plan ASA status: 3 Anesthesia: Regional (specify below) (spinal and adductor) Risk of > 500 ml blood loss (7ml/kg in children): Yes, adequate IV access and fluids planned Medications/Allergies Home Medications Medication Instructions Recorded Confirmed Last Taken Type aspirin 81 mg tablet,delayed 81 mg PO DAILY 06/26/21 08/11/22 07/12/22 History release (Adult Aspirin Regimen) magnesium 500 mg tablet 400 mg PO DAILY 06/26/21 08/11/22 08/10/22 History potassium gluconate 600 mg (99 mg) 600 mg PO BEDTIME 06/26/21 08/11/22 08/10/22 History tablet vitamin K2 100 mcg capsule See Rx Instructions .Route .COMPLEX 06/26/21 08/11/22 08/08/22 History cetirizine 10 mg tablet (Zyrtec) 10 mg PO DAILY #90 tabs 05/13/22 08/11/22 08/11/22 Rx cholecalciferol (vitamin D3) 1,250 50,000 unit PO .every 14 days 05/13/22 08/11/22 08/10/22 History mcg (50,000 unit) capsule duloxetine 60 mg capsule,delayed 60 mg PO BID #180 caps 05/13/22 08/11/22 08/11/22 Rx release (Cymbalta) esomeprazole magnesium 40 mg 40 mg PO DAILY #90 caps 05/13/22 08/11/22 08/11/22 Rx capsule,delayed release (Nexium) furosemide 20 mg tablet (Lasix) 20 mg PO QAM edema #90 tabs 0808/11/22 08/11/22 Rx ibandronate 150 mg tablet (Boniva) 150 mg PO .monthly #3 tabs 05/13/22 08/11/22 08/08/22 Rx lisinopril 10 mg tablet 10 mg PO DAILY #90 tabs 05/13/22 08/11/22 08/11/22 Rx levothyroxine 50 mcg tablet 50 mcg PO DAILY #95 tabs 07/22/22 08/11/22 08/11/22 Rx metformin 500 mg tablet,extended 2,000 mg PO BEDTIME 08/11/22 08/11/22 08/10/22 History release 24 hr pravastatin 20 mg tablet 20 mg PO BEDTIME 08/11/22 08/11/22 08/10/22 History Allergies Allergy/AdvReac Type Severity Reaction Status Date / Time Sulfa (Sulfonamide AdvReac Intermediate anxiety Verified 07/15/22 09:52 Antibiotics) [facility] Anesthesia Medical History Adult onset hypothyroidism Age related osteoporosis Anxiety Chronic constipation Chronic osteoarthritis Essential (primary) hypertension Gastric reflux Hx MRSA infection Hx of diverticulitis of colon Metabolic syndrome Mixed hyperlipidemia Obesity (BMI 30-39.9) Obstructive sleep apnea cpap Seasonal allergic conjunctivitis Surgical History History of bilateral salpingo-oophorectomy (BSO) History of colonoscopy (12/11/21) History of esophagogastroduodenoscopy (EGD) (12/11/21) History of kidney surgery (~1993) Hx of cholecystectomy (~1997) Hx of hysterectomy (~1994) Hx of tonsillectomy Family History Other Cancer Diabetes Hypertension Denies family history of Dementia Stroke Social History Smoking and tobacco status: former smoker Second hand smoke exposure: No Smoking risk assessment/counseling performed?: No Alcohol intake: never Desire information about alcohol rehabilitation?: No Counseling given: No Desire information about substance/drug rehabilitation?: No Counseling given: No Adopted: No Caregiver/support person: No Lives independently: Yes Household members: spouse Housing: House Marital status: Number of children: 2 service: No Current occupational status: retired History of recent travel: No Current gender identity: Female Data Anesthesia 08/11/22 09:10 Cardiac Studies: Stress Echocardiogram 12/03/21
[2022-08-11 09:39] LABS: Blood Urea Nitrogen 8 mg/dL (8-23); Calcium 8.6 mg/dL (8.5-10.5); Carbon Dioxide 20 mmol/L (22-29); Chloride 101 mmol/L (98-107); Glomerular Filtration Rate 124.6 mL/min (90-130); Glucose 97 mg/dL (65-115); Osmolality Calculated 274 mOsm/kg (285-295); Sodium 133 mmol/L (136-145)
[2022-08-11 09:44] LABS: Anion Gap 15.9 (5-19); Potassium 3.9 mmol/L (3.5-5.1)
[2022-08-18] VITALS (14 sets, daily range): BP systolic 113–182; BP diastolic 71–111; PULSE 68–113; RESP 12–18; TEMP 36.4–37; O2SAT 91–96; BMI 41.1
[2022-08-18] MEDS: acetaminophen 500 mg Tablet 1000 MG PO ×3 (08:46→22:40)
[2022-08-18] MEDS: gabapentin 300 mg Capsule PO ×2 (08:48→17:21)
[2022-08-18] MEDS: oxyCODONE 20 mg ER (12 HR) Tablet PO (08:48)
[2022-08-18] MEDS: CELEcoxib 200 mg Capsule 400 MG PO (08:48)
[2022-08-18 09:03] LABS: Glucose Point of Care 105 mg/dL (70-110)
[2022-08-18] MEDS: sodium chloride 0.9% 1,000 ML 30 ML IV (09:06)
--- NOTE | 2022-08-18 09:16 | P.ANESUD_ITS ---
Pre-Anesthetic Update Pre-Anesthetic Assessment: Date of Surgery/Procedure: 08/18/22 Preop Mini gnosis: upper gi symptoms Proposed Procedure: Operation Date: 08/18/22 09:50 Proposed Procedures p left marilee total knee arthrplasty/ 10421,M17.12(Left) - Naveen Brandon MD Any changes to Pre-Anesthetic Assessment?: No Last Intake: Intake Last Liquid Date 08/17/22 Last Liquid Time 23:45 Last Solid Date 08/17/22 Last Solid Time 21:00 Vitals: Temperature 97.9 F 08/18/22 08:34 Temperature Source Temporal Artery S can 08/18/22 08:34 Pulse Rate 94 08/18/22 08:34 Pulse Rhythm 08/18/22 08:34 Pulse Strength 3+ Normal 08/18/22 08:34 Respiratory Rate 17 08/18/22 08:34 Blood Pressure 182/111 08/18/22 08:34 Blood Pressure Anuradha n 134 08/18/22 08:34 Pulse Oximetry 95 08/18/22 08:34 Oxygen Delivery Me thod 08/18/22 08:34 Exam: Pre-Anes Outpt Exam: alert, oriented x 3, clear to auscultation bilaterally and regular rate & rhythm Cardiac Studies: Stress Echocardiogram 12/03/21
--- NOTE | 2022-08-18 10:27 | P.HP_ITS ---
Same Day Surgery H&P Indication for Procedure/HPI DATE OF PROCEDURE: August 18, 2022 CHIEF COMPLAINT/INDICATIONFOR SURGICAL PROCEDURE: Arthritis left knee here for left total knee arthroplasty PREOP DIAGNOSIS: upper gi symptoms PLANNED PROCEDURE: Operation Date: 08/18/22 09:50 Proposed Procedures p left marilee total knee arthrplasty/ 41572,M17.12(Left) - Naveen Brandon MD She has a long history of knee pain and treatment that is going on for years.? She states she has had multiple injections in the past from Dr. Owusu which really did not give her great improvement.? She has tried Naprosyn and ibuprofen without help.. Patient states that her pain has gradually worsened since her last visit. She states that she is ready to discuss total knee arthroplasty.? Underwent arthroscopic debridement in 2005 with documented degenerative changes.? She states arthroscopic surgery did not particularly help.? She describes continued knee pain.? She states it is uncomfortable and she now finds her self limiting her walking.? States she will walk no more than a block before that is comfortable caused her to stop.? She denies any falls but states that her knee does feel on stable.? She states she has been tolerating this for years, with only progressing pain.? Medications/Allergies* Home Medications Medication Instructions Recorded Confirmed Type aspirin 81 mg tablet,delayed 81 mg PO DAILY 06/26/21 08/11/22 History release (Adult Aspirin Regimen) magnesium 500 mg tablet 400 mg PO DAILY 06/26/21 08/11/22 History potassium gluconate 600 mg (99 mg) 600 mg PO BEDTIME 06/26/21 08/11/22 History tablet vitamin K2 100 mcg capsule See Rx Instructions .Route .COMPLEX 06/26/21 08/11/22 History cholecalciferol (vitamin D3) 1,250 50,000 unit PO .every 14 days 05/13/22 08/11/22 History mcg (50,000 unit) capsule metformin 500 mg tablet,extended 2,000 mg PO BEDTIME 08/11/22 08/11/22 History release 24 hr pravastatin 20 mg tablet 20 mg PO BEDTIME 08/11/22 08/11/22 History Allergies/Adverse Reactions Allergy/AdvReac Type Severity Reaction Status Date / Time Sulfa (Sulfonamide AdvReac Intermediate anxiety Verified 08/18/22 08:30 Antibiotics) Current Medications: Generic Name Dose Route Start Last Admin Trade Name [place] PRN Reason Stop Dose Admin Sodium Chloride 1,000 mls @ 30 mls/hr 08/18/22 08:30 08/18/22 09:06 Sodium Chloride 0.9% IV 08/19/22 08:29 30 mls/hr .Q24H JEY Administration Pertinent History/Comorbid Conditions* Medical History (Updated 05/14/22 @ 19:22 by MADDY Rivas-C) Adult onset hypothyroidism Age related osteoporosis Anxiety Chronic constipation Chronic osteoarthritis Essential (primary) hypertension Gastric reflux Hx MRSA infection Hx of diverticulitis of colon Metabolic syndrome Mixed hyperlipidemia Obesity (BMI 30-39.9) Obstructive sleep apnea cpap Seasonal allergic conjunctivitis Surgical History (Updated 05/14/22 @ 19:23 by TREY RivasC) History of bilateral salpingo-oophorectomy (BSO) History of colonoscopy (12/11/21) History of esophagogastroduodenoscopy (EGD) (12/11/21) History of kidney surgery (~1993) Hx of cholecystectomy (~1997) Hx of hysterectomy (~1994) Hx of tonsillectomy Family History (Updated 03/29/20 @ 08:23 by YOHANNES Hilton) Diabetes Cancer Hypertension Denies family history of Dementia Stroke Social History Smoking and tobacco status: former smoker Second hand smoke exposure: No Smoking risk assessment/counseling performed?: No Alcohol intake: never Desire information about alcohol rehabilitation?: No Counseling given: No Desire information about substance/drug rehabilitation?: No Counseling given: No Adopted: No Caregiver/support person: No Lives independently: Yes Household members: spouse Housing: House Marital status: Number of children: 2 service: No Current occupational status: retired History of recent travel: No Current gender identity: Female Pertinent Exam Findings alert, oriented x 3, clear to auscultation bilaterally, regular rate & rhythm, operative site marked and procedure specific exam findings KNEE [left] Tenderness medial lateral patella and medial lateral joint line RANGE OF MOTION: ? ? ? EXAMINED LIMB ? Extention: Full extent ? Flexion:? 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
[2022-08-18] MEDS: ceFAZolin 2,000 MG in sodium chloride 0.9% (plus) 50 ML 100 MG IV ×2 (11:30→18:43)
[2022-08-18] MEDS: tranexamic acid 1,000 mg/10mL SDV 1000 MG IV (11:50)
[2022-08-18] MEDS: tranexamic acid 1,000 mg/10mL SDV 1000 MG XX (12:09)
[2022-08-18] MEDS: ketorolac 30 mg/mL INJ XX (12:09)
[2022-08-18] MEDS: EPINEPHrine 1 mg/mL INJ XX (12:10)
--- NOTE | 2022-08-18 13:31 | P.OP_ITS ---
Operative Report Date of procedure: August 18, 2022 Pre-op diagnosis: Preop Diagnosis osteoarthritis left knee Post-op diagnosis: same Post-op diagnosis: Same Post-op findings: Same Procedure done: Left total knee arthroplasty Implants: Liset Triathalon total knee arthroplasty components were used includin) Size 5 triathalon cruciate retaining femoral component 2) Size 4 Tritanium tibial component 3) Size 4/[]mm thickness CS tibial bearing insert Pathology: none sent Surgeon: Naveen Brandon Distribution Operations Manager: Danny Lynch Distribution Operations Manager: The nurse practitioner the nurse practitioner assisted with critical portions of the case including positioning, draping, exposure, component implantation, closure and dressing application and is present through the entirety of the case. Anesthesia: Nerve Block (Spinal, adductor canal block) Estimated blood loss (mL): 150 Findings: The patient eburnated bone over the medial femoral condyle, medial tibial plateau trochlea and patella Condition: stable Disposition: PACU Procedure: The patient was taken to the operating room. Patient was given 1 g of tranexamic acid and 2 g of Ancef. The above anesthesia provided by the anesthesia service. A timeout was performed. The patient was prepped and draped in the usual fashion with the lower extremity exposed. A anterior incision was made, midline, from a point proximal to the patella to the distal tibial tubercle. The knee was entered through a medial parapatellar approach. The patella could be displaced laterally and the knee flexed. The patellar fat pad was resected to provide better visibility. Retractors were placed medially and laterally adjacent to the tibial plateau. At a point approximately 8 cm above the patella, 2 small incisions were made with a scalpel blade and 2 long threaded pins were placed into the anterior medial femur engaging both cortices. The femoral arrays were placed over these pins and secured. At a point 8 cm distal to the tibial tubercle. 2 shorter bicortical threaded pins were placed across the anterior medial tibia and the ti bial arrays placed. A checkpoint was made just proximal and medial to the medial femoral condyle and just medial to the tibial plateau. Small osteotomes were placed in the joint in both flexion and extension to determine ligamentous laxity. Femur was slightly externally rotated and flexed to improve gaps in flexion and the tibia raised 1 mm to improve gaps in both flexion and extension. The Analyze Re robot was then introduced to the field and the femur and tibia cut in accordance with our plan. he [employer] Fastseal was then used to provide hemostasis, particularly about the posterior capsule. A trial with the above components provided excellent stability and full range of motion. The femur was then prepared for the femoral pegs of the component in the tibia for the tibial component. The femur and tibia were then press-fit into place. An osteotome was used to remove the lateral 8 mm of the patella to minimize chances of later impingement. A neurectomy was accomplished circumferentially about the patella with electrocautery and lateral osteophytes removed. Surfaces were cleaned with a gentamicin solution. The femur and tibia were then press-fit into place. The posterior capsule and collateral ligaments were then injected with a solution of 100 mL of 0.2% ropivacaine, 1 mL of a 1:1000 epinephrine solution, 30 mg of Toradol, and 1 g of tranexamic acid. Final polyethylene component was then snapped into place into the tibia. The extensor retinaculum and subcutaneous tissue were closed with a running 1 Stratafix interrupted 1 Ethibond. The skin was closed with a running 4-0 Stratafix. The wound was covered with a Dermabond Prineo dressing. It was covered with 4xrs and a compressive Tubigauze was applied. The patient was taken to recovery room in stable condition.
--- NOTE | 2022-08-18 13:41 | XR_ITS ---
WS: [id number] EXAMINATION: XR knee LT 1-2V 65367 REASON FOR EXAM: Left Total knee arthroplasty COMPARISON: Pre-op study on 05/13/2022 ORDER DATE: 08/18/2022 2:11 PM FINDINGS: There is satisfactory alignment of the prostheses at the knee joint. There is satisfactory prosthesis positioning of the total knee replacement components. There is no sign of periprosthetic osseous abn ormality. Intra-articular and subcutaneous postoperative gas collections are present with diffuse sarah ma postoperatively XR/XR knee LT 1-2V [id number] IMPRESSION: Stable appearance of the recent total knee arthroplasty.
--- NOTE | 2022-08-18 15:12 | ANES.PROC ---
Anesthesia Procedures Procedure/Date: 08/18/22 Nerve Block ^: Nerve Block 1: Main Anesthesia: spinal anesthesia block Time Out Performed: Yes Consent: requested by attending/covering physician, from patient, risks and benefits reviewed and patient agrees to proceed Nerve block location: adductor canal (left) Anesthesia monitors applied: pulse oximetry, EKG, BP cuff and oxygen Nerve block position: supine Anesthetic Used: ropivicaine 0.5% Amount of anesthesia used (mL): 20 Ultrasound used to: recognize landmarks Nerve Stimulator Used?: No Interscalene/Femoral BLK: 4 stimuplex 21 g needle used for position and inplane approach Injection: neg aspiration of heme Patient Tolerated Procedure: well Complications: none
--- NOTE | 2022-08-18 15:13 | ANE.PACU2 ---
Inpatient post-anesthesia follow up: Airway intact: Yes Vital signs: Temperature 98.0 F Pulse Rate 110 Respiratory Rate 14 Blood Pressure 122/74 Pulse Oximetry 95 Oxygen Delivery Me thod Room Air Oxygen Flow Rate Fraction of Inspir ed Oxygen Hydration adequate: Yes Nausea and vomiting: No Pain level: 2 Mental status: Baseline
[2022-08-18] MEDS: oxyCODONE 5 mg IR Tab/Cap PO ×2 (15:14→20:37)
[2022-08-18] MEDS: sodium chloride 0.9% 1,000 ML 100 ML IV ×2 (15:15→22:41)
[2022-08-18 17:05] LABS: Glucose Point of Care 121 mg/dL (70-110)
[2022-08-18] MEDS: duloxetine 60 mg Capsule PO (17:21)
[2022-08-18] MEDS: sennosides-docusate Tablet 2 TAB PO (17:21)
[2022-08-18 19:57] LABS: Glucose Point of Care 157 mg/dL (70-110)
[2022-08-18] MEDS: atorvastatin 40 mg Tablet 20 MG PO (20:38)
[2022-08-18] MEDS: CELEcoxib 200 mg Capsule PO (20:38)
[2022-08-18] MEDS: insulin lispro 100 unit/1 mL SUBCUT (20:38)
--- NOTE | 2022-08-18 21:00 | PC.NURSE ---
Surgical site clean dry and intact. Patient only complained of 4/[address] about managing pain control. Patient was educated to ask for pain medication to keep it managable, to use call light if she needed assistance up. Patient has passed gas and since voided post-surgery. Patient tolerating diet, no report of nausea or GI upset. Patient had no further concerns at this time.
[2022-08-19] VITALS (8 sets, daily range): BP systolic 113–137; BP diastolic 73–82; PULSE 64–71; RESP 16–18; TEMP 36.6; O2SAT 95–99
[2022-08-19] MEDS: ceFAZolin 2,000 MG in sodium chloride 0.9% (plus) 50 ML 100 MG IV ×2 (02:36→11:11)
[2022-08-19] MEDS: oxyCODONE 5 mg IR Tab/Cap PO ×3 (02:36→10:50)
[2022-08-19] MEDS: FUROsemide 20 mg Tablet PO (06:23)
[2022-08-19] MEDS: acetaminophen 500 mg Tablet 1000 MG PO (06:23)
[2022-08-19 06:33] LABS: Glucose Point of Care 108 mg/dL (70-110)
--- NOTE | 2022-08-19 07:12 | PM.DCS ---
Discharge Providers Date of Admission: 08/18/22 14:43 Date of Discharge: August 19, 2022 Attending Provider at Admission: Naveen Ortega MD Attending Provider at Discharge: Naveen Ortega MD Primary Care Provider: MARIE Rivas Diagnoses at Discharge Discharge Diagnosis (1) Status post left knee replacement: Status: Acute (2) Osteoarthritis, knee: Status: Resolved (3) Obesity (BMI 30-39.9): Status: Chronic Reason for Visit Reason for Visit: M17.12 Hospital Course Hospital Course The patient tolerated surgery well. They remained hemodynamically stable. They was begun on aspirin and foot for DVT prophylaxis. The patient was mobilized with therapy beginning the day of surgery and by the first postoperative day independent with the walker. As the pain was adequately controlled and they were fully mobile they were discharged home. Physical Exam Narrative: On the day of discharge the knee incision was clean. She had modest staining of her superficial dressing. there is minimal swelling in the thigh and knee and the calf. No distal neurovascular deficits were noted Discharge Data Studies Completed and Pending Completed Studies During Hospitalization Category Date Time Status XR knee LT 1-2V 74459 Routine Exams 08/18/22 13:41 Completed Radiology Impressions Knee X-Ray 08/18/22 13:41 IMPRESSION: Stable appearance of the recent total knee arthroplasty. Laboratory Results Hgb 10.0 g/dL (11.5-15.3) L 08/19/22 01:05 Sodium 133 mmol/L (136-145) L 08/11/22 09:10 Potassium 3.9 mmol/L (3.5-5.1) 08/11/22 09:10 Chloride 101 mmol/L (98-107) 08/11/22 09:10 Carbon Dioxide 20 mmol/L (22-29) L 08/11/22 09:10 Anion Gap 15.9 (5-19) 08/11/22 09:10 BUN 8 mg/dL (8-23) 08/11/22 09:10 Creatinine 0.5 mg/dL (0.5-0.9) 08/11/22 09:10 GFR Calculation 124.6 mL/min (90-130) 08/11/22 09:10 Glucose 97 mg/dL (65-115) 08/11/22 09:10 POC Glucose 108 mg/dL (70-110) 08/19/22 06:20 Calculated Osmolality 274 mOsm/kg (285-295) L 08/11/22 09:10 Calcium 8.6 mg/dL (8.5-10.5) 08/11/22 09:10 Vitals Last Vital Signs Temp 97.8 F 08/19/22 04:00 Pulse 67 08/19/22 04:00 Resp 16 08/19/22 06:43 BP 113/73 08/19/22 04:00 Pulse Ox 96 08/19/22 04:00 O2 Del Method 08/18/22 18:05 Discharge Plan Discharge Patient Disposition: Home Condition: Stable Prescriptions: New oxycodone 5 mg Tablet 5 mg PO Q4H PRN (Reason: Moderate Pain) 7 Days Qty: 36 0RF acetaminophen 500 mg Tablet 1,000 mg PO Q8H 14 Days Qty: 84 0RF celecoxib 200 mg Capsule 200 mg PO Q12H 14 Days Qty: 28 0RF gabapentin 300 mg Capsule 300 mg PO BID 7 Days Qty: 14 0RF Continued aspirin [Adult Aspirin Regimen] 81 mg tablet,delayed release (DR/EC) 81 mg PO DAILY vitamin K2 100 mcg capsule See Rx Instructions .ROUTE .COMPLEX Rx Instructions: every 14 days potassium gluconate 600 mg (99 mg) tablet 600 mg PO BEDTIME magnesium 500 mg tablet 400 mg PO DAILY cholecalciferol (vitamin D3) 1,250 mcg (50,000 unit) capsule 50,000 unit PO .every 14 days lisinopril 10 mg tablet 10 mg PO DAILY Qty: 90 1RF ibandronate [Boniva] 150 mg tablet 150 mg PO .monthly Qty: 3 1RF furosemide [Lasix] 20 mg tablet 20 mg PO QAM Qty: 90 1RF esomeprazole magnesium [Nexium] 40 mg capsule,delayed release(DR/EC) 40 mg PO DAILY Qty: 90 1RF duloxetine [Cymbalta] 60 mg capsule,delayed release(DR/EC) 60 mg PO BID Qty: 180 1RF cetirizine [Zyrtec] 10 mg tablet 10 mg PO DAILY Qty: 90 1RF levothyroxine 50 mcg tablet 50 mcg PO DAILY Qty: 95 3RF Rx Instructions: Take one tablet Thursday through Thursday and 2 tablets on Thursday. pravastatin 20 mg tablet 20 mg PO BEDTIME metformin 500 mg tablet extended release 24 hr 2,000 mg PO BEDTIME Discharge Orders: Discharge Order (Routine); Ordered 08/19/22 Ordered By: Naveen Ortega Referrals: Danny Lynch FNP [Physician Metal Door Assembler] - 09/02/22 11:00 am Discharge Diet: Advance as tolerated Discharge Activity: Limit activity as instructed Patient Instructions: Opioid Safety Activity Restrictions/Additional Instructions: Okay to shower leave dressing in place Apply FirstIce up to 20 min/hr for pain and swelling Take Celebrex twice a day for the next 15 days for pain , discontinue other anti-inflammatories Take Neurontin twice a day for 7 days. Take Tylenol 500mg (2 tabs) as needed 3 times a day for mild pain take oxycodone for breakthrough pain. Exercises per physical therapy. May weight-bear as tolerated on total knee arthroplasty IF HAVE ANY PROBLEMS OR QUESTIONS CALL HOSPITAL SUPERVISOR PUMPING AT AND ASK TO HAVE DR. ORTEGA PAGED. Discharge Attestations Time Spent in Discharge Care*: other Quality Metrics Clinical Quality Measures [ No reported AMI, CVA or VTE this stay] Coding Level of Care Code Acute [facility] note Diagnoses Status post left knee replacement Z96.652 Osteoarthritis, knee M17.10 Obesity (BMI 30-39.9) E66.9
--- NOTE | 2022-08-19 07:13 | PM.PN ---
Subjective Subjective: Patient seen at bedside after ambulating to restroom. Passing urine. Describes aching pain. Vitals/I&O/Wt Last Vital Signs Temp 97.8 F 08/19/22 04:00 Pulse 67 08/19/22 04:00 Resp 16 08/19/22 06:43 BP 113/73 08/19/22 04:00 Pulse Ox 96 08/19/22 04:00 O2 Del Method 08/18/22 18:05 08/18/22 08/19/22 08/19/22 22:59 06:59 14:59 Intake Total 1273.333 / 2183.333 542 / 2725.333 Balance 1273.333 / 2083.333 542 / 2625.333 Weight last 48 hrs Weight 224 lb 9.6 oz Physical Exam Narrative: Slight staining left knee dressing Left calf soft Data 08/19/22 01:05 08/11/22 09:10 A&P Assessment and plan (1) Status post left knee replacement: Continue to mobilize with therapy. Attestations Medical Necessity Statement*: Anticipate discharge today if satisfactory progress with therapy and pain controlled Coding Level of Care Code Acute Tank Car Mechanic for Radhag Fwmarcos Diagnoses Status post left knee replacement Z96.652
[2022-08-19] MEDS: CELEcoxib 200 mg Capsule PO (08:40)
[2022-08-19] MEDS: levothyroxine 50 mcg Tablet PO (08:40)
[2022-08-19] MEDS: aspirin 81 mg EC Tablet PO (08:40)
[2022-08-19] MEDS: magnesium oxide 400 mg tablet PO (08:40)
[2022-08-19] MEDS: lisinopril 10 mg Tablet PO (08:40)
[2022-08-19] MEDS: duloxetine 60 mg Capsule PO (08:40)
[2022-08-19] MEDS: sennosides-docusate Tablet 2 TAB PO (08:41)
[2022-08-19] MEDS: pantoprazole DR 40 mg Tablet PO (08:41)
[2022-08-19] MEDS: gabapentin 300 mg Capsule PO (08:41)
--- NOTE | 2022-08-19 10:00 | PC.CHAP ---
Pastoral Care Encounter/Spiritual Assessment Type of Contact [] Declined materials planner/production planner visit [] Patient/Family/Request visit [] Outpatient visit [] Follow-up visit [] Physician referral [] Code/Alert [x] Routine visit [] Staff referral [] Actively dying [] Patient sleeping [] Family support [] [] Out of room [] Palliative care [] [] Receiving care in room [] Pre-surgical visit [] Trauma [] Long length of stay [] ICU visit [] Other: Relational/Emotional Strength [x] Patient feels connected with others/family/visitors/staff [] Distress [] Loneliness/isolation [] Abandonment Spirituality of Patient [x] Person of Parvin [] Attends Yazidism of their Parvin [x] Believes in Prayer [] Reads Bible or Jehovah'S Witness materials [] There are Spiritual issues to be addressed Superintendent Quarry Interventions [x] Prayer [x] Active listening [x] Non-anxious presence []x Spiritual/emotional support [] Crisis/trauma care [] Spiritual counseling [] Bereavement support [] Provided bereavement packet [] Provided Bible/devotional materials [] Provided toy/stuffed animal, coloring book to patient or family member [] Provided Communion [] Anointing/[place] [] Salvation [x] Completed spiritual assessment [] Other: Impact on Illness or Injury [] Angry [] Fearful [] Anxious [] Often cries [] Exhaustion [] Unable to work [] Unable to attend yazidism [] Unable to walk/stand [] Unable to read [] Unable to drive [] Unable to eat/drink [] Unable to sleep [] Unable to be with family [] Patient intubated [] Other: Summary 3 Time spent with patient
[2022-08-19] MEDS: sodium chloride 0.9% 1,000 ML 100 ML IV (11:13)
[2022-08-19 12:34] LABS: Glucose Point of Care 112 mg/dL (70-110)
== END 2022-08-19 14:41 | disposition home or self-care (01) ==
LOC: MEDSURG 08-19 06:48
PROVIDERS: Anesthesiology; Admitting Provider Orthopaedic Surgery; PCP Nurse Practitioner; Visit Provider Orthopaedic Surgery
PROC: 8E0Y0CZ Robotic Assisted Procedure of Lower Extremity, Open Approach (ICD-10-PCS; CPT 27447; principal; 2022-08-18 09:30)
DX: M17.12 Unilateral primary osteoarthritis, left knee (principal); G47.30 Sleep apnea, unspecified; I10 Essential (primary) hypertension; K21.9 Gastro-esophageal reflux disease without esophagitis; E11.9 Type 2 diabetes mellitus without complications; E66.01 Morbid (severe) obesity due to excess calories; Z68.41 Body mass index [BMI] 40.0-44.9, adult; Z79.82 Long term (current) use of aspirin; Z79.84 Long term (current) use of oral hypoglycemic drugs; E03.9 Hypothyroidism, unspecified; M81.0 Age-related osteoporosis without current pathological fracture; F41.9 Anxiety disorder, unspecified; Z86.14 Personal history of Methicillin resistant Staphylococcus aureus infection; E78.2 Mixed hyperlipidemia; G47.33 Obstructive sleep apnea (adult) (pediatric); Z87.891 Personal history of nicotine dependence
CPT/HCPCS: 27447; 36415; 36416; 73560; 80048; 82962; 85018; 96372; 97110; 97116; 97161; 97165; C1776; G0378; J0171; J0690; J1580; J1815; J1885; J2370; J2704; J2795; J3490; J7030

== ENCOUNTER 2022-09-10 06:00 | Outpatient (RCR) | payer OTHER, SELFPAY | END 2022-09-13 23:59 | disposition home or self-care (01) | LOC: APT 06:00 | PROVIDERS: PCP Nurse Practitioner; Visit Provider Orthopaedic Surgery | DX: Z96.652 Presence of left artificial knee joint (principal) | CPT/HCPCS: 97110; 97161 ==

== ENCOUNTER 2022-09-14 06:00 | Outpatient (RCR) | payer OTHER, SELFPAY | END 2022-10-14 23:59 | disposition home or self-care (01) | LOC: APT 06:00 | PROVIDERS: PCP Nurse Practitioner; Visit Provider Orthopaedic Surgery | DX: Z47.1 Aftercare following joint replacement surgery (principal); Z96.652 Presence of left artificial knee joint | CPT/HCPCS: 97110; 97140 ==

== ENCOUNTER → 2022-09-24 09:27 | Outpatient (BNVA) | payer OTHER, SELFPAY | PROVIDERS: PCP Nurse Practitioner; Visit Provider Nurse Practitioner | DX: E03.8 Other specified hypothyroidism (principal); I10 Essential (primary) hypertension; E55.9 Vitamin D deficiency, unspecified | CPT/HCPCS: 80053; 80061; 82306; 82627; 83036; 84439; 84443; 84481; 85025 ==

== ENCOUNTER → 2022-10-02 08:42 | Outpatient (BNVA) | payer OTHER, SELFPAY | PROVIDERS: PCP Nurse Practitioner; Visit Provider Nurse Practitioner Family | DX: Z96.652 Presence of left artificial knee joint (principal) | CPT/HCPCS: 73560; 73565 ==

== ENCOUNTER 2022-10-15 06:00 | Outpatient (RCR) | payer OTHER, SELFPAY | END 2022-11-11 23:59 | disposition home or self-care (01) | LOC: APT 06:00 | PROVIDERS: PCP Nurse Practitioner; Visit Provider Orthopaedic Surgery | DX: Z47.1 Aftercare following joint replacement surgery (principal); Z96.652 Presence of left artificial knee joint | CPT/HCPCS: 97110; 97112; 97140; 97530 ==

== ENCOUNTER 2022-11-12 06:00 | Outpatient (RCR) | payer OTHER, SELFPAY | END 2022-12-12 23:59 | disposition home or self-care (01) | LOC: APT 06:00 | PROVIDERS: PCP Nurse Practitioner; Visit Provider Orthopaedic Surgery | DX: Z47.1 Aftercare following joint replacement surgery (principal); Z96.652 Presence of left artificial knee joint | CPT/HCPCS: 97110 ==

== ENCOUNTER → 2022-12-31 09:53 | Outpatient (BNVA) | payer OTHER, SELFPAY | PROVIDERS: PCP Nurse Practitioner; Visit Provider Nurse Practitioner Family | DX: Z96.652 Presence of left artificial knee joint (principal) | CPT/HCPCS: 73560; 73565 ==

== ENCOUNTER → 2023-02-04 11:11 | Outpatient (BNVA) | payer OTHER, SELFPAY | PROVIDERS: PCP Nurse Practitioner; Visit Provider Nurse Practitioner Family | DX: T81.49XA Infection following a procedure, other surgical site, initial encounter (principal); Y83.8 Other surgical procedures as the cause of abnormal reaction of the patient, or of later complication, without mention of misadventure at the time of the procedure | CPT/HCPCS: 87070 ==

== ENCOUNTER → 2023-03-23 08:27 | Outpatient (BNVA) | payer OTHER, SELFPAY | PROVIDERS: PCP Nurse Practitioner; Visit Provider Nurse Practitioner | DX: I10 Essential (primary) hypertension (principal) | CPT/HCPCS: 80053; 80061 ==

== ENCOUNTER → 2023-04-02 08:42 | Outpatient (BNVA) | payer OTHER, SELFPAY | PROVIDERS: PCP Nurse Practitioner; Visit Provider Student in an Organized Health Care Education/Training Program | DX: Z98.890 Other specified postprocedural states (principal); M19.012 Primary osteoarthritis, left shoulder | CPT/HCPCS: 73030; 99213 ==

== ENCOUNTER → 2023-04-27 09:16 | Outpatient (BNVA) | payer OTHER, SELFPAY | PROVIDERS: PCP Nurse Practitioner; Visit Provider Nurse Practitioner | DX: E55.9 Vitamin D deficiency, unspecified; E03.8 Other specified hypothyroidism; E53.8 Deficiency of other specified B group vitamins | CPT/HCPCS: 82306; 82607; 84439; 84443; 84481; 85025 ==

== ENCOUNTER → 2023-05-01 07:45 | Outpatient (BNVA) | payer OTHER, SELFPAY | PROVIDERS: PCP Nurse Practitioner; Visit Provider Student in an Organized Health Care Education/Training Program | DX: M19.012 Primary osteoarthritis, left shoulder (principal) | CPT/HCPCS: 20610; 77002; 99213; J3301 ==

== ENCOUNTER 2023-05-25 08:44 | Outpatient (CLI) | payer OTHER, SELFPAY ==
--- NOTE | 2023-05-25 09:15 | MM_ITS ---
WS: [id number] BILATERAL SCREENING DIGITAL TOMOSYNTHESIS MAMMOGRAM WITH CAD HISTORY: Z12.31 - Encounter for screening mammogram for malignant ... COMPARISON: 05/21/2021, 05/17/2020 Bilateral CC and MLO views with tomosynthesis and synthetic mammography submitted. Computer aided det ection analyzed. Breast composition: There are scattered areas of fibroglandular density. No suspicious masses, microc alcifications or architectural distortion. Benign calcifications central LEFT breast. Lymph node uppe r outer quadrant LEFT breast. IMPRESSION: MM/[place] [id number] BI-RADS: 2-Benign FOLLOW UP: 1 Year Follow-up
== END 2023-05-25 08:45 | disposition home or self-care (01) ==
PROVIDERS: PCP Nurse Practitioner; Visit Provider Nurse Practitioner
DX: Z12.31 Encounter for screening mammogram for malignant neoplasm of breast (principal)
CPT/HCPCS: 77063; 77067

== ENCOUNTER → 2023-07-30 12:59 | Outpatient (BNVA) | payer OTHER, SELFPAY | PROVIDERS: PCP Nurse Practitioner; Visit Provider Student in an Organized Health Care Education/Training Program | DX: M19.012 Primary osteoarthritis, left shoulder (principal) | CPT/HCPCS: 99213 ==

== ENCOUNTER → 2023-10-12 09:18 | Outpatient (BNVA) | payer OTHER, SELFPAY | PROVIDERS: PCP Nurse Practitioner; Visit Provider Nurse Practitioner | DX: I10 Essential (primary) hypertension (principal); E78.2 Mixed hyperlipidemia; E03.8 Other specified hypothyroidism; H10.10 Acute atopic conjunctivitis, unspecified eye; E55.9 Vitamin D deficiency, unspecified; M54.50 Low back pain, unspecified; M79.605 Pain in left leg; K21.9 Gastro-esophageal reflux disease without esophagitis; M81.0 Age-related osteoporosis without current pathological fracture; E66.9 Obesity, unspecified | CPT/HCPCS: 80053; 80061; 82607; 84443; 85025 ==

== ENCOUNTER 2024-02-12 10:22 | Outpatient (CLI) | payer OTHER, SELFPAY ==
[2024-02-12] MEDS: iohexol 350 mg/mL 100 mL Btl IV (11:42)
[2024-02-12] MEDS: iohexol 350 mg/mL 500 mL Btl (per mL) IV (11:42)
--- NOTE | 2024-02-12 12:00 | CT_ITS ---
WS: [id number] CT ABDOMEN PELVIS TECHNIQUE: Contrast-enhanced CT of the abdomen and pelvis with coronal and sagittal reformatted image s. CLINICAL INFORMATION: R19.00 - Intra-abdominal and pelvic swelling, mass and padmini... COMPARISON: CT 2016 DLP: 761.[address] scans at [facility] use at least one of these dose optimization techniques: automated e xposure control; mA and/or kV adjustment per patient size (includes targeted exams where dose is matc hed to clinical indication); or iterative reconstruction. FINDINGS: Small RIGHT lateral abdominal wall spigelian hernia with hernia mouth measuring approximately 3.9 x 3 .4 cm. Small knuckle of herniating ascending colon at the cecal junction. Wide mouth hernia likely re sults in intermittent obstruction with a few underlying air-fluid levels in the ascending colon. Gary mmend correlation for RIGHT lower quadrant pain and surgical consultation. Fluid distention of the ce cum, RIGHT colon, and transverse colon. LEFT colon is decompressed. Sigmoid diverticulosis. No eviden ce of acute diverticulitis. Diffuse fatty infiltration of the liver. Cholecystectomy. Normal portal vein and splenic vein. Normal spleen. Adrenal glands are normal. Normal renal parenchymal enhancement. Dilated RIGHT renal pelvis. RIGHT ureter is decompressed. Moderate esophageal hiatal hernia. Lung bases are well aerated. Normal pancreatic parenchymal enhance ment. Celiac and SMA are patent. Tiny fat-containing umbilical hernia. Slight retrolisthesis L3 on L4 . Slight anterolisthesis L4 on L5. Disc space narrowing worse at L5-S1. CT/CT abdomen pelvis w con* [id number] IMPRESSION: 1. RIGHT lateral abdominal wall spigelian hernia with hernia mouth measuring 3 .9 x 3.4 cm. Herniation of a small knuckle of ascending colon likely resulting in intermittent obstruction. A few air-fluid levels in the RIGHT colon and umana sverse colon. 2. Recommend correlation with RIGHT lower quadrant pain and surgical consultat ion. 3. Dilated RIGHT renal pelvis with decompressed ureter unchanged since 2016 4. Prior cholecystectomy. 5. Moderate esophageal hiatal hernia increased compared to previous. 6. Sigmoid diverticulosis. No evidence of acute diverticulitis.
== END 2024-02-12 10:23 | disposition home or self-care (01) ==
LOC: RAD 10:23
PROVIDERS: PCP Nurse Practitioner; Visit Provider Nurse Practitioner
DX: R19.00 Intra-abdominal and pelvic swelling, mass and lump, unspecified site (principal); I10 Essential (primary) hypertension; L57.0 Actinic keratosis; E78.2 Mixed hyperlipidemia; L73.8 Other specified follicular disorders; D22.5 Melanocytic nevi of trunk; L82.1 Other seborrheic keratosis
CPT/HCPCS: 17000; 74177; 80053; 80061; 84443; 99203; Q9967

== ENCOUNTER 2024-07-26 08:42 | Outpatient (CLI) | payer MEDICARE, OTHER, SELFPAY ==
--- NOTE | 2024-07-26 08:47 | MM_ITS ---
WS: [id number] BILATERAL 3D TOMOSYNTHESIS DIGITAL SCREENING MAMMOGRAPHY WITH CAD CLINICAL INFORMATION: SCREENING HISTORY: Screening mammogram. No current complaints. COMPARISON: 2022 TECHNIQUE: Bilateral CC and MLO views. FINDINGS: The breasts are composed of heterogeneous fibroglandular density tissue, which can limit the detectio n of small underlying mass lesions. No suspicious mass, asymmetry, calcifications, or architectural d istortion. No evidence of malignancy. Incidental punctate calcification LEFT breast. MM/MM [facility] tomosynthesis [id number] IMPRESSION: DENSITY: The breasts are heterogeneously dense, which may obscure small masses. BI-RADS: 2 - Benign FOLLOW UP: 1 Year Follow-up Recommend return to annual screening mammography.
== END 2024-07-26 08:43 | disposition home or self-care (01) ==
LOC: RAD 08:43
PROVIDERS: PCP Nurse Practitioner; Visit Provider Nurse Practitioner
DX: Z12.31 Encounter for screening mammogram for malignant neoplasm of breast (principal); R92.333 Mammographic heterogeneous density, bilateral breasts; R92.1 Mammographic calcification found on diagnostic imaging of breast
CPT/HCPCS: 77063; 77067

== ENCOUNTER → 2024-08-02 09:38 | Outpatient (BNVA) | payer MEDICARE, OTHER, SELFPAY | PROVIDERS: PCP Nurse Practitioner; Visit Provider Nurse Practitioner | DX: I10 Essential (primary) hypertension (principal); E03.8 Other specified hypothyroidism | CPT/HCPCS: 80053; 80061; 84443 ==

== ENCOUNTER → 2025-01-13 08:54 | Outpatient (BNVA) | payer MEDICARE, OTHER, SELFPAY | PROVIDERS: PCP Nurse Practitioner; Visit Provider Nurse Practitioner | DX: E55.9 Vitamin D deficiency, unspecified (principal); E78.2 Mixed hyperlipidemia; E03.8 Other specified hypothyroidism; I10 Essential (primary) hypertension | CPT/HCPCS: 80053; 80061; 82306; 84443; 85025 ==

== ENCOUNTER → 2025-02-28 15:21 | Outpatient (BNVA) | payer MEDICARE, OTHER, SELFPAY | PROVIDERS: PCP Nurse Practitioner; Visit Provider Physician Assistant | DX: M17.11 Unilateral primary osteoarthritis, right knee (principal) | CPT/HCPCS: 20610; 73560; 73565; 99213; J3301; J9999 ==

== ENCOUNTER → 2025-04-25 09:31 | Outpatient (BNVA) | payer MEDICARE, OTHER, SELFPAY | PROVIDERS: PCP Nurse Practitioner; Visit Provider Student in an Organized Health Care Education/Training Program | DX: M17.11 Unilateral primary osteoarthritis, right knee (principal) | CPT/HCPCS: 99214 ==

== ENCOUNTER 2025-05-03 07:09 | Outpatient (CLI) | payer MEDICARE, OTHER, SELFPAY ==
--- NOTE | 2025-05-03 07:00 | CT_ITS ---
WS: [id number] CT RIGHT knee, noncontrast HISTORY: RIGHT TOTAL KNEE ARTHROPLASTY TECHNIQUE: Protocol for [facility] total knee replacement has been obtained. This includes axial imaging through the RIGHT hip, RIGHT knee and RIGHT ankle. DLP: 968.35 mGy.cm COMPARISON: Radiograph 02/28/2025 Hips: Symmetric. No significant arthritis. No fracture or destruction. Mild sigmoid diverticulosis. RIGHT knee: Severe narrowing of the patellofemoral joint with lateral subluxation of the patella. Subchondral cystic changes along the posterior patellar surface. Osteophytic ridging at the femoral condyles and tibial plateau. No fracture. No significant joint effusion. RIGHT ankle: Unremarkable. CT/CT knee RT [facility] [id number] IMPRESSION: CT imaging provided for [facility] robotic total knee replacement.
== END 2025-05-03 07:10 | disposition home or self-care (01) ==
LOC: RAD 07:09
PROVIDERS: PCP Nurse Practitioner; Visit Provider Student in an Organized Health Care Education/Training Program
DX: M17.11 Unilateral primary osteoarthritis, right knee (principal); K57.30 Diverticulosis of large intestine without perforation or abscess without bleeding; M22.2X1 Patellofemoral disorders, right knee; S83.012A Lateral subluxation of left patella, initial encounter; X58.XXXA Exposure to other specified factors, initial encounter; M22.8X1 Other disorders of patella, right knee; M25.761 Osteophyte, right knee
CPT/HCPCS: 73700

== ENCOUNTER → 2025-05-24 08:50 | Outpatient (BNVA) | payer MEDICARE, OTHER, SELFPAY | PROVIDERS: PCP Nurse Practitioner; Visit Provider Physician Assistant | DX: M17.11 Unilateral primary osteoarthritis, right knee (principal) | CPT/HCPCS: 36415; 80053; 81001; 85025; 99213 ==

== ENCOUNTER → 2025-05-29 11:19 | Outpatient (BNVA) | payer MEDICARE, OTHER, SELFPAY | PROVIDERS: PCP Nurse Practitioner; Visit Provider Family Medicine | DX: Z01.818 Encounter for other preprocedural examination (principal) | CPT/HCPCS: 93005 ==

== ENCOUNTER 2025-06-15 16:46 | Observation (INO) | payer MEDICARE, OTHER, SELFPAY ==
[2025-06-15] VITALS (13 sets, daily range): BP systolic 107–176; BP diastolic 64–107; PULSE 76–87; RESP 16–18; TEMP 36.1–36.8; O2SAT 90–98; BMI 32.1
--- NOTE | 2025-06-15 12:17 | ANES.PREANE2 ---
Pre-Anesthetic Assessment Height/Weight: Height 5 ft 2 in Weight 176 lb Temp Pulse Resp BP Pulse Ox O2 Del Method 97 F L 78 16 176/107 96 Room Air 06/15/25 12:00 06/15/25 12:00 06/15/25 12:00 06/15/25 12:00 06/15/25 12:00 06/15/25 12:02 Preop Diagnosis: Knee arthritis Operation Date: 06/15/25 13:40 Proposed Procedures p RIGHT Rosendo Robot Total Knee Arthroplasty(Right) - Dwayne Avila, DO Was Beta Ariel taken within 24 hours: N/A Was Clonidine taken within 24 hours: N/A Last intake: Intake Last Liquid Date 06/15/25 Last Liquid Time 08:30 Last Solid Date 06/14/25 Last Solid Time 23:30 Social No alcohol and No tobacco Exam alert, oriented x 3, clear to auscultation bilaterally and regular rate & rhythm Airway Submandibular: within normal limits Cervical ROM: within normal limits Mallampati: Class II Dentition: false Anesthetic Plan ASA status: 3 Anesthesia: MAC and Regional (specify below) Other: No prior issues with anesthesia NPO since yesterday evening History of hypertension on lisinopril. Preop BP 176/107 Hypothyroidism on Synthroid GERD, controlled with Pepcid Gastric sleeve history about 2 years ago. Patient has lost 70 pounds since then Labs reviewed from 05/24/2025 and acceptable for procedure Plan for spinal anesthesia with post induction nerve block Medications/Allergies Home Medications ?Medication ?Instructions ?Recorded ?Confirmed ?Last Taken ?Type magnesium 500 mg tablet 400 mg PO DAILY 06/26/21 06/15/25 06/14/25 History potassium gluconate 600 mg (99 mg) 600 mg PO BEDTIME 06/26/21 06/15/25 06/14/25 History tablet polyethylene glycol 3350 17 17 g PO DAILY #510 grams 08/02/24 06/15/25 06/14/25 Rx gram/dose oral powder (Miralax) cetirizine 10 mg tablet (Zyrtec) 10 mg PO DAILY #90 tabs 01/30/25 06/15/25 06/14/25 Rx cholecalciferol (vitamin D3) 1,250 50,000 unit PO .every 14 days #2 01/30/25 06/15/25 06/11/25 Rx mcg (50,000 unit) capsule caps desvenlafaxine succinate 100 mg 100 mg PO DAILY #90 tabs 01/30/25 06/15/25 06/14/25 Rx tablet,extended release 24 hr (Pristiq) ibandronate 150 mg tablet 150 mg PO .monthly #3 tabs 01/30/25 06/15/25 06/08/25 Rx lisinopril 10 mg tablet 10 mg PO DAILY #90 tabs 01/30/25 06/15/25 06/14/25 Rx pravastatin 20 mg tablet 20 mg PO BEDTIME #90 tabs 01/30/25 06/15/25 06/14/25 Rx CPAP machine and supplies #1 ea 04/03/25 05/29/25 Unknown Rx linaclotide 145 mcg capsule 145 mcg PO QAM #90 caps 04/27/25 06/15/25 06/14/25 Rx (Linzess) levothyroxine 50 mcg tablet 100 mcg PO DAILY 06/08/25 06/15/25 06/14/25 History furosemide 20 mg tablet (Lasix) 20 mg PO QAM PRN edema 06/15/25 06/15/25 Unknown History Allergies Allergy/AdvReac Type Severity Reaction Status Date / Time prednisone Allergy Intermediate ADR-Gastrointestinal Verified 06/15/25 12:15 Upset NSAIDS (Non-Steroidal Allergy Mild ADR-Gastrointestinal Verified 06/15/25 12:27 Anti-Inflamma Upset Sulfa (Sulfonamide AdvReac Intermediate anxiety Verified 06/15/25 12:15 Antibiotics) [facility] Anesthesia Medical History Irritable bowel syndrome with constipation and diarrhea FIGUEROA on CPAP Vitamin D deficiency Metabolic syndrome Obesity (BMI 30-39.9) Age related osteoporosis Anxiety Hx of diverticulitis of colon Hx MRSA infection Chronic osteoarthritis Chronic constipation Obstructive sleep apnea cpap Mixed hyperlipidemia Gastric reflux Seasonal allergic conjunctivitis Adult onset hypothyroidism Essential (primary) hypertension Surgical History History of left knee replacement August 18, 2022 History of gastric restrictive surgery January 26, 2023 in [place] History of colonoscopy (12/11/21) History of bilateral salpingo-oophorectomy (BSO) Hx of hysterectomy (~1994) History of kidney surgery (~1993) Hx of tonsillectomy Hx of cholecystectomy (~1997) History of esophagogastroduodenoscopy (EGD) (12/11/21) Family History Other Cancer Diabetes Hypertension Denies family history of Dementia Stroke Social History Smoking and tobacco/nicotine status: never used tobacco/nicotine Second hand smoke exposure: No Alcohol intake: never Substance/Drug Use: never Adopted: No Caregiver/support person: No Lives independently: Yes Household members: spouse Housing: House Marital status: Number of children: 2 service: No Current occupational status: retired Do you think of yourself as: Straight/Heterosexual Current gender identity: Female Data Anesthesia 06/15/25 12:10 06/15/25 12:10 Cardiac Studies: Stress Echocardiogram 12/03/21
[2025-06-15 12:20] LABS: Hematocrit 46.9 % (36-47); Hemoglobin 14.60 g/dL (11.27-16.99); Mean Corpuscular HGB Conc 31.1 g/dL (30-55); Mean Corpuscular Hemoglobin 27.6 pg (27-33); Mean Corpuscular Volume 88.7 fl (85-98); Nucleated Red Blood Cells % 0 %; Platelet Count 286 10^3/cmm (157-399); Red Blood Count 5.29 10^6/uL (3.85-5.65); White Blood Count 6.30 10^3/uL (3.29-11.43)
[2025-06-15] MEDS: acetaminophen 1,000 MG/100 ML PIGGYBACK 400 MG IV ×2 (12:20→20:48)
[2025-06-15 12:39] LABS: Anion Gap 14.5 (5-19); Blood Urea Nitrogen 14 mg/dL (8-23); Calcium 9.6 mg/dL (8.5-10.5); Carbon Dioxide 28 mmol/L (22-29); Chloride 103 mmol/L (98-107); Creatinine Clr Calc Pharmacy 67.6970; Glucose 104 mg/dL (65-115); Osmolality Calculated 293 mOsm/kg (285-295); Potassium 4.5 mmol/L (3.5-5.1); Sodium 141 mmol/L (136-145)
--- NOTE | 2025-06-15 14:15 | W.PM.OPSUD ---
Surgery/Procedure H&P Update DATE OF PROCEDURE: June 15, 2025 DATE H&P PERFORMED: 05/24/25 H&P UPDATE INFORMATION: I have reviewed H&P completed within last 30 days, I have examined patient prior to procedure and No changes to prior documentation PREOP DIAGNOSIS: Right knee DJD PRIMARY INDICATION FOR PROCEDURE: Right knee DJD PLANNED PROCEDURE: Operation Date: 06/15/25 13:40 Proposed Procedures p RIGHT Rosendo Robot Total Knee Arthroplasty(Right) - Dwayne Avila DO
[2025-06-15] MEDS: ceFAZolin 2,000 MG in sodium chloride 0.9% (plus) 50 ML 100 MG IV ×2 (14:30→22:37)
--- NOTE | 2025-06-15 14:47 | ANES.PROC ---
Anesthesia Procedures Procedure/Date: 06/15/25 Nerve Block ^: Nerve Block 1: Main Anesthesia: spinal anesthesia block Time Out Performed: Yes Consent: requested by attending/covering physician and from patient Laterality: Right Nerve block location: adductor canal Anesthesia monitors applied: pulse oximetry, EKG, BP cuff and oxygen Nerve block position: supine Anesthetic Used: ropivicaine 0.5% Amount of anesthesia used (mL): 15 Ultrasound used to: recognize landmarks Nerve Stimulator Used?: No Interscalene/Femoral BLK: other needle (pjunk 4inch) Injection: neg aspiration of heme Patient Tolerated Procedure: well Complications: none
[2025-06-15] MEDS: tranexamic acid 1,000 mg/10mL SDV 1000 MG IV (14:50)
[2025-06-15] MEDS: ROPivacaine 0.2% Premix 100 mL 200 MG INTRA-ARTI (15:29)
[2025-06-15] MEDS: tranexamic acid 1,000 mg/10mL SDV 1000 MG XX (15:31)
--- NOTE | 2025-06-15 16:16 | W.PM.BPON ---
Date of Procedure: 06/15/2025 Surgeon: Dwayne Avila DO Customer Consulting Manager(s): Bryce Avila PA-C Procedure(s) performed: Right total knee arthroplasty?Rosendo robotic assisted Findings of the procedure(s): Patient underwent procedure as planned without issues or complications taken recovery in stable condition Estimated blood loss: 25 mL Specimen(s) removed: Tibia femur and patellar bone cuts removed Post-operative diagnosis: Right knee DJD
--- NOTE | 2025-06-15 16:17 | P.OP_ITS ---
Operative Report Date of procedure: June 15, 2025 Surgeon: Dwayne Avila DO Policy Issue Clerk: Bryce Avila PA-C: PA was necessary for assistance in this case with leg positioning retraction and protection of neurovascular structures as well as assistance in implantation wound closure and dressing application. Procedure: Preoperative diagnosis: Right knee degenerative joint disease Post-op diagnosis: Same Procedure done: Right total knee arthroplasty, cemented?robotic assisted Rosendo Implants: Cecil triathlon size 5 femur CR cemented?Right Cecil triathlon size? 4 tibia universal baseplate cemented Liset triathlon symmetric patella size 31 mm Liset triathlon polyethylene 10mm Surgeon: Dwayne Avila DO Estimated blood?loss: 25 mL Tourniquet 49minutes IV fluids: 1600 mL Urine output: 500 mL Complications: None Condition: stable Disposition: floor Brief History: Patient is a 65-year-old female with with chronic?Right knee degenerative joint disease.? Patient has been worked up in the outpatient setting in the orthopedic office at this point time through shared decision making given? [id number] arthritis as well as failed conservative treatment, and pt would?like to proceed with a?Right total knee arthroplasty.? Through shared decision making elected to proceed with surgical intervention for?Right total knee arthroplasty with Rosendo robotic assisted.? We talked about continued conservative treatment and surgical intervention as far as the risk benefits complications alternatives surgical and nonsurgical treatment options.? At this point time understanding patient risks with surgery patient agrees to proceed with surgical intervention.? Once again? risk with surgery include but are not?limited to make it better make it worse blood clot, heart attack, stroke, on the table, infection, injury to nerves or vessels, persistent pain, arthrofibrosis, implant failure.? Understanding these risks patient agrees to proceed with surgical intervention consent was obtained in the preoperative holding area.? All questions answered. Procedure: Patient was seen and evaluated in the preoperative holding area.? Consent was reviewed and signed with patient with plan for?Right total knee arthroplasty.? All questions answered.? Correct extremity marked.? Patient seen and evaluated by the anesthesia department and once cleared for surgery was taken back to the operative suite.? Patient was placed into a supine position on the OR table.? All bony prominences were well-padded.? Patient was appropriately secured to the bed.? Patient underwent anesthesia per the anesthesia department.? Patient received anesthesia and? Ribeiro catheter was placed.? A nonsterile tourniquet was applied to the?Right thigh.? At this point in time a final timeout performed.? Patient received appropriate preoperative antibiotics and TXA. Next the?Right?lower extremity was then prepped and draped in standard orthopedic fashion. Esmarch tourniquet was used exsanguinate the?Right?lower extremity.? Tourniquet was insufflated to 250 mmHg. A standard anterior incision was made over midline of the knee.? Sharp scalpel excision through skin and subcutaneous tissue full-thickness skin flaps were made.? Fascia was elevated off of the extensor retinaculum was stable with medial parapatellar arthrotomy was then made.? The performed standard sequential releases..? Immediately on entry into the joint patient was found to have severe eburnated bone and tricompartmental arthritic changes noted.? With significant osteophyte formation.? Next the the patella was then stuffed and the knee was then flexed.?? Tru was placed superiorly around the anterior aspect of the femur this was freed of synovium and I subsequently then placed by 2 femur pins to establish my femur arrays for the Rosendo robot.? These were then placed bicortically and? femur array was then appropriately secured with appropriate visualization.? Next attention was turned towards the tibial rays.? These were then drilled sequentially bicortically in parallel fashion and intraincisional.? I then placed my guide as well as my tibial array on in place.? This was appropriately secured and had excellent visualization with the Rosendo robot.? Next the tibial checkpoint as well as femur checkpoint were then placed.? At this point time I then subsequently established my head center as well as my medial?lateral malleoli as well as my checkpoints.? Next utilizing standard Rosendo technology I then mapped out the appropriate points and confirmation points around the femur as well as the tibia in standard fashion.? Once this was then done I then removed all osteophytes in preparation for dynamic testing.? All osteophytes were removed as well as I removed the ACL and the PCL was excised due to its significant tearing and degeneration noted.? At this point time the knee was brought into full extension and we performed our standard evaluation of our gap balancing stressing his?ligaments and extension as well as flexion appropriate adjustments were made to have appropriate gap balancing in both flexion and extension.? This plan for final cuts were made to correct patient's deformity within the ligamentous tolerances..? We get a preoperative plan evaluating our implants which was a size 5 femur and a size 4 tibia.? Next we brought in the Rosendo robot and sequentially made our femur cuts.? All excess bony cuts were then removed.? Finally we made our tibial cut.? Once this was done a standard PCL retractor was then placed into this position I excised the medial and?lateral meniscus.? The tibial cut was then subsequently removed all excess bony debris was removed.? I then utilized a?lamina transportation job titles and remove the posterior osteophytes.? At this point time sized the tibia and confirmed this was a size 4.? I utilized our blunt probe to establish rotation of tibial implant.? Once this was done I then placed my tibia size 4 trial in appropriate position and then subsequently placed tibial pins to hold this into place and trialed up to a size 10 mm poly as well as a size 5 femur which was appropriately impacted in place knee was then subsequently brought into extension. Trials were then assessed,? this was stable with varus valgus stress in extension as well as had symmetrical translation when brought into flexion demonstrating symmetrical gaps. I had excellent balance gaps in flexion and extension with varus and valgus stresses.? At this point I was satisfied with these implants these were then verified and opened on the back table size 4 tibia, size 5 femur,? size 10 mm polythickness.? We did confirm appropriate gap balancing and stresses as well as alignment utilizing? Rosendo and were satisfied with this plan.? ?At this point time with my trials in place I then towel clip the patella everted this made appropriate measurements subsequently utilizing freehand technique performed by patellar resurfacing this was confirmed to be appropriate resection and subsequently sized to be a 31 mm symmetric.? My drill peg guides were then clamped and appropriate position and appropriate position in the patella for appropriate tracking and parallel with the joint.? Pegs were drilled trial implant was placed and the knee was then subsequently ranged and found to have excellent patellar tracking.? Femur pegs were then drilled.? At this point time all of our trial implants were removed.? All checkpoints as well as guidepins and arrays were removed and appropriate counts made.? Satisfied with our tibial placement rotation I then utilized the keel punch and prepped the tibia.? The wound bed? was thoroughly irrigated and dried and prepped for cementation.? Cement was mixed on the back table.? Once cement was ready this was then covered onto the tibia and the tibial baseplate was then impacted and all excess cement was removed.? Next the polyethylene was then impacted into place on the tibial baseplate.? Next cement was placed onto the femur as well as under the femur implants and impacted in to place and all excess cement was extruded and removed.? Knee was taken into full extension? to clear all excess cement was removed.? Warm saline was placed over the joint.? I then towel clip patella and dried for cementation. cemented the patella into place.? This was all clamped and the cement was allowed to cure.? Thorough irrigation performed with pulse?lavage.? I then placed my periarticular injection while the cement was curing.? Once cured the knee was taken through range of motion and had excellent stability and gaps were balanced in flexion and extension.? Tourniquet was then deflated. hemostasis satisfactory with electrocautery.? Vancomycin powder placed in wound bed for antibiotic infection prophylaxis. Next I then subsequently closed the capsule with Ethibond suture as well as a running strata fix suture.? Knee was then taken through range of motion 30 times.? Next the skin was then closed in?layered fashion of running stratifix sutures of deep and subcutenous tissue and skin.? ?closed in flexion and Prineo glue was then placed over the incision this allowed to cure.? Incision was covered with Silverlon, with ABDs soft roll and Sebastian wrap.? Patient was then awakened from anesthesia and taken to PACU in stable condition. Disposition: Patient taken to PACU in stable condition will be admitted to the floor for pain control PT/OT weight-bear as tolerated?Right?lower extremity dressing changes as needed, DVT prophylaxis. Pain control. Patient will receive appropriate postoperative antibiotics. patient will be seen today by the interna l medicine team for medical management.? Patient will follow up with the office in 2 weeks.? Patient understands agrees with current plan.? All questions answered.
--- NOTE | 2025-06-15 16:22 | XR_ITS ---
WS: [id number] XR knee RT 3V* [id number] REASON FOR EXAM: s/p R TKA FINDINGS: Total right knee arthroplasty. Components of the arthroplasty are intact and in proper position and alignment. No change from 02/28/2025. No focal bone abnormality. XR/XR knee RT 3V* [id number] IMPRESSION: Stable total right knee arthroplasty.
--- NOTE | 2025-06-15 16:49 | PM.PACU ---
PACU note Narrative: Patient is a 65-year-old female who just underwent a right knee arthroplasty. Pt transferred to PACU in stable condition. Dressing is dry. pt is awake and alert. Distal pulses are palpable toes are warm and well-perfused. Cap refill is normal and under 2 seconds. Unable to perform any further motor or sensory assessment due to residual spinal block. pain is controlled. Exam: awake Disposition: discharged
--- NOTE | 2025-06-15 16:50 | ANE.PACU2 ---
Inpatient post-anesthesia follow up: Airway intact: Yes Vital signs: Temperature 97.4 F Pulse Rate 63 Respiratory Rate 17 Blood Pressure 156/96 Pulse Oximetry 97 Oxygen Delivery Me thod Room Air Oxygen Flow Rate Fraction of Inspir ed Oxygen 21 Hydration adequate: Yes Nausea and vomiting: No Pain level: 1 Mental status: Baseline
--- NOTE | 2025-06-15 17:35 | PM.CONSULT ---
Providers/Reason For Consult Consulting Physician/Specialty*: Orthopedic Reason for Consult*: Medical management Attending Physician: Dwayne Avila DO Primary Care Provider: MARIE Rivas History of Present Illness History of Present Illness Bela Jennings is a 65 year old female who has a past medical history of hypertension, hypothyroidism, hyperlipidemia who presents to [facility] for right knee arthroplasty, currently patient is alert oriented x 3, following commands, denies a history of CAD, history of CHF no history of strokes, no history of diabetes, currently resting comfortably, has no pain complaints Review of Systems Card: Denies: chest pain Resp: Denies: dyspnea Medications/Allergies Home Medications ?Medication ?Instructions ?Recorded ?Confirmed ?Last Taken ?Type magnesium 500 mg tablet 400 mg PO DAILY 06/26/21 06/15/25 06/14/25 History potassium gluconate 600 mg (99 mg) 600 mg PO BEDTIME 06/26/21 06/15/25 06/14/25 History tablet polyethylene glycol 3350 17 17 g PO DAILY #510 grams 08/02/24 06/15/25 06/14/25 Rx gram/dose oral powder (Miralax) cetirizine 10 mg tablet (Zyrtec) 10 mg PO DAILY #90 tabs 01/30/25 06/15/25 06/14/25 Rx cholecalciferol (vitamin D3) 1,250 50,000 unit PO .every 14 days #2 01/30/25 06/15/25 06/11/25 Rx mcg (50,000 unit) capsule caps desvenlafaxine succinate 100 mg 100 mg PO DAILY #90 tabs 01/30/25 06/15/25 06/14/25 Rx tablet,extended release 24 hr (Pristiq) ibandronate 150 mg tablet 150 mg PO .monthly #3 tabs 01/30/25 06/15/25 06/08/25 Rx lisinopril 10 mg tablet 10 mg PO DAILY #90 tabs 01/30/25 06/15/25 06/14/25 Rx pravastatin 20 mg tablet 20 mg PO BEDTIME #90 tabs 01/30/25 06/15/25 06/14/25 Rx CPAP machine and supplies #1 ea 04/03/25 05/29/25 Unknown Rx linaclotide 145 mcg capsule 145 mcg PO QAM #90 caps 04/27/25 06/15/25 06/14/25 Rx (Linzess) levothyroxine 50 mcg tablet 100 mcg PO DAILY 06/08/25 06/15/25 06/14/25 History furosemide 20 mg tablet (Lasix) 20 mg PO QAM PRN edema 06/15/25 06/15/25 Unknown History oxycodone 5 mg tablet 5 mg PO Q6H PRN pain postop 7 days 06/15/25 Unknown Rx #28 tabs Allergies Allergy/AdvReac Type Severity Reaction Status Date / Time prednisone Allergy Intermediate ADR-Gastrointestinal Verified 06/15/25 12:15 Upset NSAIDS (Non-Steroidal Allergy Mild ADR-Gastrointestinal Verified 06/15/25 12:27 Anti-Inflamma Upset Sulfa (Sulfonamide AdvReac Intermediate anxiety Verified 06/15/25 12:15 Antibiotics) PFSH Acute PFSH: Medical History Irritable bowel syndrome with constipation and diarrhea FIGUEROA on CPAP Vitamin D deficiency Metabolic syndrome Obesity (BMI 30-39.9) Age related osteoporosis Anxiety Hx of diverticulitis of colon Hx MRSA infection Chronic osteoarthritis Chronic constipation Obstructive sleep apnea cpap Mixed hyperlipidemia Gastric reflux Seasonal allergic conjunctivitis Adult onset hypothyroidism Essential (primary) hypertension Surgical History History of left knee replacement August 18, 2022 History of gastric restrictive surgery January 26, 2023 in [place] History of colonoscopy (12/11/21) History of bilateral salpingo-oophorectomy (BSO) Hx of hysterectomy (~1994) History of kidney surgery (~1993) Hx of tonsillectomy Hx of cholecystectomy (~1997) History of esophagogastroduodenoscopy (EGD) (12/11/21) Family History Other Cancer Diabetes Hypertension Denies family history of Dementia Stroke Social History Smoking and tobacco/nicotine status: never used tobacco/nicotine Second hand smoke exposure: No Alcohol intake: never Substance/Drug Use: never Adopted: No Caregiver/support person: No Lives independently: Yes Household members: spouse Housing: House Marital status: Number of children: 2 service: No Current occupational status: retired Do you think of yourself as: Straight/Heterosexual Current gender identity: Female Vitals/I&O/Wt Last Vital Signs Temp 97.7 F 06/15/25 17:00 Pulse 80 06/15/25 17:00 Resp 16 06/15/25 17:00 BP 117/67 06/15/25 17:00 Pulse Ox 90 06/15/25 17:00 O2 Del Method Room Air 06/15/25 17:00 06/15/25 06/15/25 06/15/25 06:59 14:59 22:59 Intake Total 100 / 100 650 / 750 Output Total 525 / 525 Balance 100 / 100 125 / 225 Weight last 48 hrs Weight 79.832 kg Physical Exam Const: COMMON NORMALS: no acute distress and patient oriented x3 HENMT: COMMON NORMALS: normocephalic HEAD & SCALP: normocephalic Resp: COMMON NORMALS: normal respiratory effort, No retractions, No use of accessory muscles and clear to auscultation bilaterally AUSCULTATION: clear to auscultation bilaterally Cardio: COMMON NORMALS: regular rate, regular rhythm, S1 normal heart sound present and S2 normal heart sound present RATE: regular rate RHYTHM: regular rhythm HEART SOUNDS: S1 normal heart sound present and S2 normal heart sound present GI: COMMON NORMALS: Normal to inspection, nondistended, normoactive bowel sounds present and non-tender Extremity: COMMON NORMALS: no calf tenderness and no pedal edema NARRATIVE EXTREMITY EXAM: right lower extrmity wrapped, OTHER: dp/pt pulses palpable bilaterally Neuro: COMMON NORMALS: patient oriented x3, CN's II-XII intact bilaterally and moves all extremities Psych: COMMON NORMALS: mental status grossly normal Urinary Catheter Management: Ribeiro: Cath Placed During This Visit: yes Urinary Catheter Date of Insertion: 06/15/25 Urinary Catheter Time of Insertion: 14:40 Data 06/15/25 12:10 06/15/25 12:10 A&P Assessment and plan 1. Essential (primary) hypertension: 2. Adult onset hypothyroidism: 3. Mixed hyperlipidemia: 4. Primary osteoarthritis of right knee: Plan: Right knee arthroplasty - Pain control and anticoagulation as per orthopedic team Hypothyroidism continue levothyroxine Hypertension continue lisinopril Hyperlipidemia continue pravastatin Obstructive sleep apnea CPAP Full code Eliquis for DVT prophylaxis PDMP PDMP Reviewed: Not Reviewed Consult Attestations Medical Necessity Statement: Patient requires hospitalization for right knee osteoarthritis, post right knee arthroplasty Diagnoses Essential (primary) hypertension I10 Adult onset hypothyroidism E03.8 Mixed hyperlipidemia E78.2 Primary osteoarthritis of right knee M17.11
[2025-06-15] MEDS: calcium carb-vit d 600mg/400unit 1 Tablet 1 EACH PO (17:52)
[2025-06-15] MEDS: oxyCODONE 5 mg IR Tab/Cap PO ×2 (17:52→22:36)
[2025-06-15] MEDS: chlorhexidine gluconate 0.12% Btl 473 mL 30 ML MUCOUS MEM ×2 (17:53→22:40)
[2025-06-15] MEDS: mupirocin oint 22 gm 1 APPLIC NASAL (17:53)
[2025-06-15] MEDS: sennosides-docusate Tablet 2 TAB PO (17:54)
[2025-06-15] MEDS: tranexamic acid 1,000 MG/100 ML PREMIX 600 MG IV (20:28)
[2025-06-15] MEDS: ATORVASTATIN 10 MG TABLET PO (20:49)
[2025-06-16] VITALS (8 sets, daily range): BP systolic 131–168; BP diastolic 72–96; PULSE 60–74; RESP 15–19; TEMP 36.3–36.7; O2SAT 93–97
[2025-06-16] MEDS: oxyCODONE 5 mg IR Tab/Cap PO ×3 (03:55→16:58)
[2025-06-16] MEDS: chlorhexidine gluconate 0.12% Btl 473 mL 30 ML MUCOUS MEM ×4 (04:00→22:16)
[2025-06-16] MEDS: acetaminophen 1,000 MG/100 ML PIGGYBACK 400 MG IV ×2 (04:01→12:44)
[2025-06-16] MEDS: mupirocin oint 22 gm 1 APPLIC NASAL ×2 (04:02→16:52)
[2025-06-16 04:43] LABS: Hematocrit 36.1 % (36-47); Hemoglobin 11.10 g/dL (11.27-16.99); Mean Corpuscular HGB Conc 30.7 g/dL (30-55); Mean Corpuscular Hemoglobin 27.6 pg (27-33); Mean Corpuscular Volume 89.8 fl (85-98); Nucleated Red Blood Cells % 0 %; Platelet Count 238 10^3/cmm (157-399); Red Blood Count 4.02 10^6/uL (3.85-5.65); White Blood Count 12.06 10^3/uL (3.29-11.43)
[2025-06-16 04:58] LABS: Anion Gap 13.8 (5-19); Blood Urea Nitrogen 10 mg/dL (8-23); Calcium 8.4 mg/dL (8.5-10.5); Carbon Dioxide 27 mmol/L (22-29); Chloride 104 mmol/L (98-107); Creatinine Clr Calc Pharmacy 67.6970; Glucose 122 mg/dL (65-115); Osmolality Calculated 290 mOsm/kg (285-295); Potassium 4.8 mmol/L (3.5-5.1); Sodium 140 mmol/L (136-145)
[2025-06-16] MEDS: ceFAZolin 2,000 MG in sodium chloride 0.9% (plus) 50 ML 100 MG IV ×2 (05:56→14:05)
[2025-06-16] MEDS: APIXABAN 2.5 MG TABLET PO ×2 (08:58→20:04)
--- NOTE | 2025-06-16 11:39 | P.PN_ITS ---
Subjective 2 Subjective: Patient was seen this morning, has right knee pain, overall clinically improving Vitals/I&O/Wt Last Vital Signs Temp 97.4 F L 06/16/25 11:22 Pulse 63 06/16/25 11:22 Resp 17 06/16/25 11:22 BP 156/96 06/16/25 11:22 Pulse Ox 97 06/16/25 11:22 O2 Del Method Room Air 06/16/25 11:22 FiO2 21 06/15/25 21:00 06/15/25 06/16/25 06/16/25 22:59 06:59 14:59 Intake Total 2049 / 0 1300 / 3450 1540 / 1540 Output Total 525 / 525 1900 / 1900 Balance 1525 / 1625 1300 / 2925 -360 / -360 Weight last 48 hrs Weight 79.832 kg Weight 79.832 kg Weight 79.832 kg Physical Exam 2 Const: COMMON NORMALS: no acute distress and patient oriented x3 Resp: COMMON NORMALS: normal respiratory effort, No retractions, No use of accessory muscles and clear to auscultation bilaterally AUSCULTATION: clear to auscultation bilaterally Cardio: COMMON NORMALS: regular rate, regular rhythm, S1 normal heart sound present and S2 normal heart sound present RATE: regular rate RHYTHM: r egular rhythm HEART SOUNDS: S1 normal heart sound present and S2 normal heart sound present GI: COMMON NORMALS: Normal to inspection, nondistended, normoactive bowel sounds present and non-tender Extremity: COMMON NORMALS: no pedal edema NARRATIVE EXTREMITY EXAM: Right lower extremity wrapped, able to wiggle her toes, DP PT pulses palpable Neuro: COMMON NORMALS: patient oriented x3 Psych: COMMON NORMALS: mental status grossly normal Urinary Catheter Management: Ribeiro: Cath Placed During This Visit: yes, but has since been removed by the nurse Reason for Continuing Indwelling Catheter: Other Urinary Catheter Date of Insertion: 06/15/25 Urinary Catheter Time of Insertion: 14:40 Date Urinary Catheter Removed: 06/16/25 Time Urinary Catheter Discontinued: 09:23 Data 06/16/25 04:30 06/16/25 04:30 A&P Assessment and plan 1. Essential (primary) hypertension: 2. Adult onset hypothyroidism: 3. Mixed hyperlipidemia: 4. Primary osteoarthritis of right knee: Plan: Right knee arthroplasty - Pain control and anticoagulation as per orthopedic team Hypothyroidism continue levothyroxine Hypertension continue lisinopril Hyperlipidemia continue pravastatin Obstructive sleep apnea CPAP Full code Eliquis for DVT prophylaxis PDMP PDMP Reviewed: Not Reviewed Attestations 2 Medical Necessity Statement*: Patient will be discharged today Diagnoses Essential (primary) hypertension I10 Adult onset hypothyroidism E03.8 Mixed hyperlipidemia E78.2 Primary osteoarthritis of right knee M17.11
--- NOTE | 2025-06-16 15:19 | P.PN_ITS ---
Subjective 2 Subjective: Patient seen and examined today she still having pain issues and would benefit from another day of therapy and pain control prior to discharge Vitals/I&O/Wt Last Vital Signs Temp 97.4 F L 06/16/25 11:22 Pulse 63 06/16/25 11:22 Resp 17 06/16/25 11:22 BP 156/96 06/16/25 11:22 Pulse Ox 97 06/16/25 11:22 O2 Del Method Room Air 06/16/25 11:22 FiO2 21 06/15/25 21:00 06/16/25 06/16/25 06/16/25 06:59 14:59 22:59 Intake Total 1300 / 3450 1660 / 1660 Output Total 1900 / 1900 Balance 1300 / 2925 -240 / -240 Weight last 48 hrs Weight 176 lb Weight 176 lb Weight 176 lb Physical Exam 2 Narrative: Right knee examination: Dressing on in place, clean dry and intact. No evidence of saturation. Patient has normal postoperative swelling and tenderness to palpation to the knee. Compartments are soft compressible,'s calf soft and nontender. Sensations intact to light touch distally. Distal pulses are palpable. Patient is able to wiggle toes as well as plantarflex and dorsiflex ankle. Urinary Catheter Management: Ribeiro: Cath Placed During This Visit: yes, but has since been removed by the nurse Reason for Continuing Indwelling Catheter: Other Urinary Catheter Date of Insertion: 06/15/25 Urinary Catheter Time of Insertion: 14:40 Date Urinary Catheter Removed: 06/16/25 Time Urinary Catheter Discontinued: 09:23 Data 06/17/25 04:52 06/17/25 04:52 Other Labs: 06/16/2025 AM labs WBC 12.06 Hemoglobin 11.1 Sodium 140 Potassium 4.8 Creatinine 0.4 A&P Assessment and plan 1. Status post total right knee replacement using cement: Plan: POD #1 R TKA Weight-bear as tolerated to operative lower extremity Ice as needed for pain and swelling pain control PT/OT Resume Diet Postop TXA and postoperative antibiotics given Dressing changes as needed AM labs reviewed Postoperative x-rays reviewed Internal medicine consulted for medical management appreciate their assistance DVT prophylaxis (Eliquis) Patient at this point in time having issues with pain and having some orthostatic issues when getting up with therapy at this point in time patient would benefit from an additional night stay for observation with pain control and better progress with therapy prior to discharge. Patient understands agrees to current plan. Questions answered. PDMP PDMP Reviewed: Last Reviewed 06/17/25 16:00 EDT by Dwayne Avila DO Attestations 2 Medical Necessity Statement*: Ongoing care status post right total knee arthroplasty patient requiring further hospitalization as she has had orthostatics with physical therapy and would benefit from additional night stay of observation pain control and working with therapy. Coding Level of Care Code Acute Code for Chg Fwd Diagnoses Status post total right knee replacement using cement Z96.651 Time Spent (min) 15
[2025-06-16] MEDS: sennosides-docusate Tablet 2 TAB PO (16:51)
[2025-06-16] MEDS: calcium carb-vit d 600mg/400unit 1 Tablet 1 EACH PO (16:51)
[2025-06-16] MEDS: ATORVASTATIN 10 MG TABLET PO (20:04)
[2025-06-16] MEDS: HYDROmorphone 0.5 MG/0.5 ML INJ IVP (22:15)
[2025-06-17] VITALS (8 sets, daily range): BP systolic 139–182; BP diastolic 81–98; PULSE 69–94; RESP 15–17; TEMP 35.8–37.4; O2SAT 92–96
[2025-06-17] MEDS: oxyCODONE 5 mg IR Tab/Cap PO ×3 (00:44→13:43)
[2025-06-17] MEDS: sennosides-docusate Tablet 2 TAB PO (04:49)
[2025-06-17] MEDS: polyethylene glycol 3350 Pkt 17 gm PO (04:49)
[2025-06-17] MEDS: multivitamin therapeutic Tablet 1 TAB PO (04:51)
[2025-06-17] MEDS: mupirocin oint 22 gm 1 APPLIC NASAL (04:53)
[2025-06-17] MEDS: chlorhexidine gluconate 0.12% Btl 473 mL 30 ML MUCOUS MEM (04:53)
[2025-06-17 05:17] LABS: Hematocrit 36.4 % (36-47); Hemoglobin 11.60 g/dL (11.27-16.99); Mean Corpuscular HGB Conc 31.9 g/dL (30-55); Mean Corpuscular Hemoglobin 28.6 pg (27-33); Mean Corpuscular Volume 89.9 fl (85-98); Nucleated Red Blood Cells % 0 %; Platelet Count 238 10^3/cmm (157-399); Red Blood Count 4.05 10^6/uL (3.85-5.65); White Blood Count 9.35 10^3/uL (3.29-11.43)
[2025-06-17 05:38] LABS: Anion Gap 11.7 (5-19); Blood Urea Nitrogen 9 mg/dL (8-23); Calcium 8.4 mg/dL (8.5-10.5); Carbon Dioxide 28 mmol/L (22-29); Chloride 103 mmol/L (98-107); Glucose 158 mg/dL (65-115); Osmolality Calculated 290 mOsm/kg (285-295); Potassium 3.7 mmol/L (3.5-5.1); Sodium 139 mmol/L (136-145)
[2025-06-17 05:44] LABS: Creatinine Clr Calc Pharmacy 67.6970
[2025-06-17] MEDS: APIXABAN 2.5 MG TABLET PO (08:06)
[2025-06-17] MEDS: calcium carb-vit d 600mg/400unit 1 Tablet 1 EACH PO (08:06)
--- NOTE | 2025-06-17 09:16 | P.DS_ITS ---
Discharge Providers Date of Admission: 06/15/25 16:46 Date of Discharge: June 17, 2025 Attending Provider at Admission: Dwayne Avila DO Attending Provider at Discharge: Dwayne Avila DO Consults: Dr. Angel?hospitalist Primary Care Provider: MARIE Rivas Diagnoses at Discharge Discharge Diagnosis 1. Status post total right knee replacement using cement: 2. Essential (primary) hypertension: 3. Adult onset hypothyroidism: 4. Mixed hyperlipidemia: 5. Primary osteoarthritis of right knee: Reason for Visit Reason for Visit: M17.11 Brief History: Status post right total knee arthroplasty?[facility] robotic assisted Hospital Course Hospital Course Patient presented to the preoperative holding area with plan for right total knee arthroplasty after patient has been worked up in the outpatient setting for failed conservative treatment of right knee degenerative joint disease. Once cleared by anesthesia for surgery patient subsequently was taken back to the operative suite underwent anesthesia per anesthesia department and then subsequently underwent a right total knee arthroplasty. Procedure was performed without any complications patient was taken to PACU in stable condition patient recovered well in PACU and then was admitted to the floor postoperatively internal medicine was consulted and on board for medical management and assistan ce with care. Patient received appropriate PT/OT, postoperative antibiotics, postoperative TXA, pain control, postoperative DVT prophylaxis. Elevation and ice. Patient encouraged for knee range of motion allowed weightbearing as tolerated to the operative lower extremity. Dressing was changed as needed, labs were monitored daily. Patient recovered well postoperatively and worked well and progressed well with therapy. Patient had some orthostatic on postoperative day 1 as well a required IV pain medication and as a result was kept another day for additional pain control and therapy. It was determined on postoperative day 2 the patient was stable for discharge from an orthopedic standpoint and medicine. Patient was comfortable with discharge and plan was discharged home. Patient received appropriate discharge instructions as well as pain medication and DVT prophylaxis postoperatively. Given appropriate instructions for dressing management. Patient will follow-up with Dr. Meng amador/orthopedics in the office in 2 weeks. All questions answered. Understand if there is any issues questions or concerns and contact the office. Physical Exam Narrative: Right knee examination: Dressing on in place, clean dry and intact. No evidence of saturation. Patient has normal postoperative swelling and tenderness to palpation to the knee. Compartments are soft compressible,'s calf soft and nontender. Sensations intact to light touch distally. Distal pulses are palpable. Patient is able to wiggle toes as well as plantarflex and dorsiflex ankle. Urinary Catheter Management: Ribeiro: Cath Placed During This Visit: yes, but has since been removed by the nurse Reason for Continuing Indwelling Catheter: Other Urinary Catheter Date of Insertion: 06/15/25 Urinary Catheter Time of Insertion: 14:40 Date Urinary Catheter Removed: 06/16/25 Time Urinary Catheter Discontinued: 08:00 Discharge Data Studies Completed and Pending Completed Studies During Hospitalization Category Date Time Status XR knee RT 3V* [id number] Routine Exams 06/15/25 16:22 Completed Pending at discharge Category Date Time Status Basic Metabolic Panel AM LABS Lab 06/18/25 04:00 Ordered Basic Metabolic Panel Routine Lab 06/15/25 11:48 Uncollected Complete Blood Count w/Auto AM LABS Lab 06/18/25 04:00 Ordered Complete Blood Count w/Auto Routine Lab 06/15/25 11:48 Uncollected Type and Screen Routine Lab 06/15/25 11:48 Uncollected Urinalysis Routine Lab 06/17/25 08:39 Uncollected Radiology Impressions Knee X-Ray 06/15/25 16:22 IMPRESSION: Stable total right knee arthroplasty. Laboratory Results WBC 9.35 10^3/uL (3.29-11.43) 06/17/25 04:52 RBC 4.05 10^6/uL (3.85-5.65) 06/17/25 04:52 Hgb 11.60 g/dL (11.27-16.99) 06/17/25 04:52 Hct 36.4 % (36-47) 06/17/25 04:52 MCV 89.9 fl (85-98) 06/17/25 04:52 MCH 28.6 pg (27-33) 06/17/25 04:52 MCHC 31.9 g/dL (30-55) 06/17/25 04:52 RDW 14.7 % (12.1-15.1) 06/17/25 04:52 Plt Count 238 10^3/cmm (157-399) 06/17/25 04:52 MPV 10.2 fL (7.4-10.4) 06/17/25 04:52 Neut % (Auto) 67.4 % 06/17/25 04:52 Lymph % (Auto) 19.8 % 06/17/25 04:52 [place] % (Auto) 10.7 % 06/17/25 04:52 Eos % (Auto) 1.4 % 06/17/25 04:52 Baso % (Auto) 0.4 % 06/17/25 04:52 Neut # (Auto) 6.30 10^3/uL (1.8-7.7) 06/17/25 04:52 Lymph # (Auto) 1.9 10^3/uL (0.8-4.8) 06/17/25 04:52 [place] # (Auto) 1.0 10^3/uL (0.2-0.9) H 06/17/25 04:52 Eos # (Auto) 0.1 10^3/uL (0.0-0.8) 06/17/25 04:52 Baso # (Auto) 0.0 10^3/uL (0.0-0.1) 06/17/25 04:52 Nucleated RBC % (auto) 0 % 06/17/25 04:52 Nucleated RBCs # 0.0 /100WBC 06/17/25 04:52 Sodium 139 mmol/L (136-145) 06/17/25 04:52 Potassium 3.7 mmol/L (3.5-5.1) 06/17/25 04:52 Chloride 103 mmol/L (98-107) 06/17/25 04:52 Carbon Dioxide 28 mmol/L (22-29) 06/17/25 04:52 Anion Gap 11.7 (5-19) 06/17/25 04:52 BUN 9 mg/dL (8-23) 06/17/25 04:52 Creatinine 0.4 mg/dL (0.5-0.9) L 06/17/25 04:52 GFR Calculation 159.7 mL/min (90-130) H 06/17/25 04:52 Glucose 158 mg/dL (65-115) H 06/17/25 04:52 Calculated Osmolality 290 mOsm/kg (285-295) 06/17/25 04:52 Calcium 8.4 mg/dL (8.5-10.5) L 06/17/25 04:52 Blood Type O Positive 06/15/25 12:10 Rho(D) Type Rh positive 06/15/25 12:10 Antibody Screen Negative 06/15/25 12:10 Vitals Last Vital Signs Temp 96.4 F L 06/17/25 07:25 Pulse 76 06/17/25 07:25 Resp 16 06/17/25 07:25 BP 182/81 06/17/25 07:25 Pulse Ox 94 06/17/25 07:25 O2 Del Method Room Air 06/17/25 07:25 FiO2 21 06/15/25 21:00 Discharge Plan Discharge Patient Disposition: Home Health Service Condition: Stable Prescriptions: New cefadroxil 500 mg capsule 500 mg PO BID 7 Days Qty: 14 0RF oxycodone 5 mg tablet 5 mg PO Q6H PRN (Reason: pain postop) 7 Days Qty: 28 0RF calcium carbonate-vitamin D3 [Calcium 600 + D(3)] 600 mg-10 mcg (400 unit) tablet 1 tab PO DAILY 30 Days Qty: 30 0RF Eliquis 2.5 mg tablet 2.5 mg PO BID 14 Days Qty: 28 0RF Continued potassium gluconate 600 mg (99 mg) tablet 600 mg PO BEDTIME magnesium 500 mg tablet 400 mg PO DAILY polyethylene glycol 3350 [Miralax] 17 gram/dose powder 17 g PO DAILY Qty: 510 0RF (DME) CPAP machine and supplies See Rx Instructions .ROUTE .MEDSUPPLY Qty: 1 0RF Rx Instructions: As directed cetirizine [Zyrtec] 10 mg tablet 10 mg PO DAILY Qty: 90 1RF cholecalciferol (vitamin D3) 1,250 mcg (50,000 unit) capsule 50,000 unit PO .every 14 days Qty: 2 5RF desvenlafaxine succinate [Pristiq] 100 mg tablet extended release 24 hr 100 mg PO DAILY Qty: 90 1RF ibandronate 150 mg tablet 150 mg PO .monthly Qty: 3 1RF lisinopril 10 mg tablet 10 mg PO DAILY Qty: 90 1RF pravastatin 20 mg tablet 20 mg PO BEDTIME Qty: 90 1RF Linzess 145 mcg capsule 145 mcg PO QAM Qty: 90 0RF levothyroxine 50 mcg tablet 100 mcg PO DAILY Rx Instructions: 50mcg 6 days 100mcg 1 day orally; furosemide [Lasix] 20 mg tablet 20 mg PO QAM PRN (Reason: edema) 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 If you have not heard from them within the next 2 business days, please call them directly. Dwayne Avila DO [Physician, Orthopedics] - 06/28/25 1:45 pm Discharge Diet: Regular Discharge Activity: Limit activity as instructed and Use walker/crutches as instructed Patient Instructions: Cefadroxil (By mouth), Oxycodone, Rapid Release (By mouth), Ondansetron (By mouth), Apixaban (By mouth), Acute Wound Care (DC), Total Knee Replacement (GEN), Joint Replacement Stoplight, Opioid Safety, Post Anesthesia Care, Patient Portal & Titi Instructions Activity Restrictions/Additional Instructions: Postop right total knee arthroplasty Orthopedic discharge instructions: Keep incisions clean dry and intact, leave [place] bandage dressings on in place for 7 days after that may rinse incisions with warm soapy water pat dry and redress with a dry dressing. Patient may weight-bear as tolerate to the operative extremity Utilize walker as needed Encourage knee range of motion Ice and elevate as needed for pain and swelling Take pain medication as prescribed Take antinausea medication as needed Take antibiotic as prescribed for antibiotic infection prophylaxis Pain medication can cause constipation. take [id number] stool softeners and or MiraLAX. Take prescribed Eliquis twice daily for the next 14 days for blood clot prevention May supplement for pain with Tylenol [id number] as needed(1000 mg every 8 hours-do not exceed more than 3000mg in 24-hour period) No baths or soaks Follow-up in the orthopedic office in 2 weeks Contact the office for any questions or concerns Discharge Attestations Time Spent in Discharge Care*: less than 30 min Quality Metrics Clinical Quality Measures [ No reported AMI, CVA or VTE this stay] Coding Level of Care Code Acute Code for Chg Fwd Diagnoses Status post total right knee replacement using cement Z96.651 Essential (primary) hypertension I10 Adult onset hypothyroidism E03.8 Mixed hyperlipidemia E78.2 Primary osteoarthritis of right knee M17.11 Time Spent (min) 25
--- NOTE | 2025-06-17 12:27 | P.PN_ITS ---
Subjective 2 Subjective: Patient was seen this morning, sitting up in chair, no fevers, chills, no cough, no nausea, no vomiting, no abdominal pain, she did have a small bowel movement, no lightheadedness, no dizziness Vitals/I&O/Wt Last Vital Signs Temp 98.3 F 06/17/25 11:35 Pulse 94 06/17/25 11:35 Resp 17 06/17/25 11:35 BP 139/98 06/17/25 11:35 Pulse Ox 92 06/17/25 11:35 O2 Del Method Room Air 06/17/25 11:35 FiO2 21 06/15/25 21:00 06/16/25 06/17/25 06/17/25 22:59 06:59 14:59 Intake Total 1220 / 2880 1276.667 / 4156.667 Output Total 500 / 2400 400 / 2800 1450 / 1450 Balance 720 / 480 876.667 / 1356.667 -1450 / -1450 Weight last 48 hrs Weight 79.832 kg Weight 79.832 kg Weight 79.832 kg Physical Exam 2 Const: COMMON NORMALS: no acute distress and patient oriented x3 Resp: COMMON NORMALS: normal respiratory effort, No retractions, No use of accessory muscles and clear to auscultation bilaterally AUSCULTATION: clear to auscultation bilaterally Cardio: COMMON NORMALS: regular rate, regular rhythm, S1 normal heart sound present and S2 normal heart sound present RATE: regular rate RHYTHM: r egular rhythm HEART SOUNDS: S1 normal heart sound present and S2 normal heart sound present GI: COMMON NORMALS: Normal to inspection, nondistended, normoactive bowel sounds present and non-tender Extremity: COMMON NORMALS: no calf tenderness and no pedal edema Neuro: COMMON NORMALS: patient oriented x3 Psych: COMMON NORMALS: mental status grossly normal Urinary Catheter Management: Ribeiro: Cath Placed During This Visit: yes, but has since been removed by the nurse Reason for Continuing Indwelling Catheter: Other Urinary Catheter Date of Insertion: 06/15/25 Urinary Catheter Time of Insertion: 14:40 Date Urinary Catheter Removed: 06/16/25 Time Urinary Catheter Discontinued: 08:00 Data 06/17/25 04:52 06/17/25 04:52 A&P Assessment and plan 1. Essential (primary) hypertension: 2. Adult onset hypothyroidism: 3. Mixed hyperlipidemia: 4. Primary osteoarthritis of right knee: Plan: Right knee arthroplasty - Pain control and anticoagulation as per orthopedic team Hypothyroidism continue levothyroxine Hypertension continue lisinopril Hyperlipidemia continue pravastatin Obstructive sleep apnea CPAP Full code Eliquis for DVT prophylaxis PDMP PDMP Reviewed: Not Reviewed Attestations 2 Medical Necessity Statement*: Patient will be discharged today Diagnoses Essential (primary) hypertension I10 Adult onset hypothyroidism E03.8 Mixed hyperlipidemia E78.2 Primary osteoarthritis of right knee M17.11
== END 2025-06-17 14:35 | disposition home health service (06) ==
LOC: MEDSURG 16:46
PROVIDERS: Admitting Provider Student in an Organized Health Care Education/Training Program; PCP Nurse Practitioner; Visit Provider Student in an Organized Health Care Education/Training Program
PROC: 8E0Y0CZ Robotic Assisted Procedure of Lower Extremity, Open Approach (ICD-10-PCS; CPT 27447; principal; 2025-06-15 13:40)
DX: M17.11 Unilateral primary osteoarthritis, right knee (principal); G47.33 Obstructive sleep apnea (adult) (pediatric); Z99.89 Dependence on other enabling machines and devices; E66.9 Obesity, unspecified; Z68.32 Body mass index [BMI] 32.0-32.9, adult; F41.9 Anxiety disorder, unspecified; Z86.14 Personal history of Methicillin resistant Staphylococcus aureus infection; E78.2 Mixed hyperlipidemia; E03.9 Hypothyroidism, unspecified; I10 Essential (primary) hypertension; Z98.84 Bariatric surgery status
CPT/HCPCS: 27447; 20985; 36415; 51702; 73562; 80048; 85025; 86850; 86900; 94660; 97110; 97116; 97161; 97167; 97530; A4216; C1713; C1776; G0378; J0131; J0169; J0690; J1100; J1171; J1885; J2405; J2704; J2795; J3010; J3373; J7030; J7120; J9999; L8699

== ENCOUNTER → 2025-06-28 14:11 | Outpatient (BNVA) | payer MEDICARE, OTHER, SELFPAY | PROVIDERS: PCP Nurse Practitioner; Visit Provider Physician Assistant | DX: Z98.890 Other specified postprocedural states (principal); Z96.651 Presence of right artificial knee joint | CPT/HCPCS: 73562; 99024 ==

== ENCOUNTER → 2025-06-30 09:44 | Outpatient (BNVA) | payer MEDICARE, OTHER, SELFPAY | PROVIDERS: PCP Nurse Practitioner; Visit Provider Nurse Practitioner | DX: E03.8 Other specified hypothyroidism (principal); E53.8 Deficiency of other specified B group vitamins; E55.9 Vitamin D deficiency, unspecified | CPT/HCPCS: 80053; 82306; 82607; 84443; 85025 ==

== ENCOUNTER → 2025-07-31 08:00 | Outpatient (BNVA) | payer MEDICARE, OTHER, SELFPAY | PROVIDERS: PCP Nurse Practitioner; Visit Provider Nurse Practitioner | DX: I10 Essential (primary) hypertension (principal) | CPT/HCPCS: 80053 ==

== ENCOUNTER 2025-08-01 10:10 | Observation (INO) | payer MEDICARE, OTHER, SELFPAY ==
[2025-08-01] VITALS (9 sets, daily range): BP systolic 120–153; BP diastolic 69–92; PULSE 59–78; RESP 14–18; TEMP 36.3–36.8; O2SAT 93–99; BMI 31.8
--- NOTE | 2025-08-01 10:19 | ECG_ITS ---
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 Measurements Intervals [place] Rate: 64 P: 44 MS: 163 QRS: 45 QRSD: 91 T: 51 QT: 400 QTc: 415 Interpretive Statements SINUS RHYTHM Compared to ECG 05/29/2025 11:32:20 No significant changes Electronically Signed On 08-03-2025 00:13:33 PASTA PRESS OPERATOR by Boston Murillo M.D. [email or web address]
--- NOTE | 2025-08-01 10:28 | ED_ITS ---
HPI - Syncope 2 General: Chief Complaint: Syncope Stated Complaint: syncope Time Seen by Provider: 08/01/25 10:11 History of Present Illness: 65-year-old female presents emergency ro om via EMS was had a routine primary care clinic visit and while seated became lightheaded dizzy and had a syncopal episode. They report that her heart rate dropped into the 30s. Does not sound like she had full loss of consciousness ever. She was very sedate she states she remembers them pressing on her chest and hearing a computer voices say something about continue CPR suspect that was an AED were calling the clinic to confirm. She has no known history of coronary artery disease Contacted the clinic to report the nurse received in the clinic was that they did 15 minutes of compressions. Patient states she still remembers this. Associated symptoms: Deny abdominal pain, chest pain or fever(s) Related Data Home Medications ?Medication ?Instructions ?Recorded ?Confirmed potassium gluconate 600 mg (99 mg) 600 mg PO BEDTIME 1 08/03/25 tablet oxycodone 5 mg tablet 5 mg PO Q4H PRN Pain (Scale Score 06/26/25 08/03/25 4-6) magnesium oxide 400 mg (241.3 mg 400 mg PO DAILY 08/0108/03/25 magnesium) tablet (MagOx) Previous Rx's ?Medication ?Instructions ?Recorded CPAP machine and supplies #1 ea 04/03/25 cetirizine 10 mg tablet (Zyrtec) 10 mg PO DAILY #90 ta bs 08/01/25 cholecalciferol (vitamin D3) 1,250 50,000 unit PO .jaimee ry 14 days #2 08/01/25 mcg (50,000 unit) capsule caps desvenlafaxine succinate 100 mg 100 mg PO DAILY #90 ta bs 08/01/25 tablet,extended release 24 hr (Pristiq) Held on 08/03/25. Instructions: Doctor's Order ibandronate 150 mg tablet 150 mg PO .monthly #3 tabs 1 10/01/24 levothyroxine 50 mcg tablet See Rx Instructions PO .CO MPLEX 08/01/25 #100 tabs linaclotide 145 mcg capsule 145 mcg PO QAM #90 caps (Linzess) pravastatin 20 mg tablet 20 mg PO BEDTIME #90 tabs valsartan 40 mg tablet (Diovan) 40 mg PO DAILY #30 tab s 08/03/25 Allergies Allergy/AdvReac Type Severity Reaction Status Date / Time prednisone Allergy Intermediate ADR-Gastrointestinal Verified 08/03/25 14:41 Upset NSAIDS (Non-Steroidal Allergy Mild ADR-Gastrointestinal Verified 08/03/25 14:41 Anti-Inflamma Upset Sulfa (Sulfonamide AdvReac Intermediate anxiety Verified 08/03/25 14:41 Antibiotics) Review of Systems 2 Const: Denies: fever(s) or chills Card: Denies: chest pain Resp: Denies: dyspnea GI: Denies: abdominal pain : Denies: dysuria, urinary frequency or urinary urgency Musc: Denies: neck pain or back pain Skin/Breast: Denies: rash PFSH ED 2 PFSH: Medical History Irritable bowel syndrome with constipation and diarrhea FIGUEROA on CPAP Vitamin D deficiency Metabolic syndrome Obesity (BMI 30-39.9) Age related osteoporosis Anxiety Hx of diverticulitis of colon Hx MRSA infection Chronic osteoarthritis Chronic constipation Obstructive sleep apnea cpap Mixed hyperlipidemia Gastric reflux Seasonal allergic conjunctivitis Adult onset hypothyroidism Essential (primary) hypertension Surgical History History of left knee replacement August 18, 2022 History of gastric restrictive surgery January 26, 2023 in [place] History of colonoscopy (12/11/21) History of bilateral salpingo-oophorectomy (BSO) Hx of hysterectomy (~1994) History of kidney surgery (~1993) Hx of tonsillectomy Hx of cholecystectomy (~1997) History of esophagogastroduodenoscopy (EGD) (12/11/21) Family History Other Cancer Diabetes Hypertension Denies family history of Dementia Stroke Social History Smoking and tobacco/nicotine status: former use of tobacco/nicotine Second hand smoke exposure: No Alcohol intake: never Substance/Drug Use: never Adopted: No Caregiver/support person: No Lives independently: Yes Household members: spouse Housing: House Marital status: Number of children: 2 service: No Current occupational status: retired Do you think of yourself as: Straight/Heterosexual Current gender identity: Female Physical Exam 2 Const: COMMON NORMALS: no acute distress GENERAL APPEARANCE: cooperative and comfortable ORIENTATION/CONSCIOUSNESS: Yes awake, Yes oriented to person, Yes oriented to place and Yes oriented to time HENMT: COMMON NORMALS: normocephalic, atraumatic and hearing grossly normal bilaterally HEAD & SCALP: normocephalic and atraumatic Resp: COMMON NORMALS: normal respiratory effort, No retractions, No use of accessory muscles and clear to auscultation bilaterally AUSCULTATION: clear to auscultation bilaterally Cardio: COMMON NORMALS: regular rate, regular rhythm and No murmurs present (Cardio) RATE: regular rate RHYTHM: regular rhythm GI: COMMON NORMALS: Soft to palpation and No hepatosplenomegaly present A USCULTATION: Yes normoactive bowel sounds PALPATION: Yes Soft to palpation, No Tenderness to palpation present (GI), No Guarding due to palpation present (GI) and Yes No hepatosplenomegaly present Extremity: COMMON NORMALS: normal to inspection, capillary refill normal, no clubbing, cyanosis or edema, no calf tenderness and no pedal edema Neuro: SENSORIUM/ORIENTATION: Yes oriented to person, Yes oriented to place and Yes oriented to time Skin: COMMON NORMALS: no rashes or lesions noted GENERAL SKIN EXAM: no rashes or lesions noted Course 2 Vital Signs: Vital signs: Vital Signs Temperature 97.7 F 08/02/25 08:00 Pulse Rate 73 08/02/25 16:16 Respiratory Rate 16 08/02/25 16:16 Blood Pressure 151/77 08/02/25 16:16 Pulse Oximetry 97 08/02/25 16:16 Oxygen Delivery Me thod Room Air 08/01/25 16:00 MDM - Syncope Medical Decision Making Patient reporting syncopal episode. Concerned about that she may have had a bradycardia or some other arrhythmia significant causes. Sounds like she was awake for most of the reported chest compressions. She does not have any acute fractures. Troponins are negative will place her on observation discussed with hospitalist. Orders written. Medical Records I reviewed the patient's medical records. Lab Data I reviewed the patient's lab results. 08/02/25 03:50 08/02/25 03:50 Radiology Impressions Chest X-Ray 08/01/25 10:55 IMPRESSION: Stable chest without acute abnormality. Laboratory Results WBC 6.98 10^3/uL (3.29-11.43) 08/01/25 10:20 RBC 4.35 10^6/uL (3.85-5.65) 08/01/25 10:20 Hgb 12.50 g/dL (11.27-16.99) 08/01/25 10:20 Hct 40.4 % (36-47) 08/01/25 10:20 MCV 92.9 fl (85-98) 08/01/25 10:20 MCH 28.7 pg (27-33) 08/01/25 10:20 MCHC 30.9 g/dL (30-55) 08/01/25 10:20 RDW 14.5 % (12.1-15.1) 08/01/25 10:20 Plt Count 343 10^3/cmm (157-399) 08/01/25 10:20 MPV 9.4 fL (7.4-10.4) 08/01/25 10:20 Neut % (Auto) 61.7 % 08/01/25 10:20 Lymph % (Auto) 24.1 % 08/01/25 10:20 [place] % (Auto) 9.6 % 08/01/25 10:20 Eos % (Auto) 3.3 % 08/01/25 10:20 Baso % (Auto) 0.7 % 08/01/25 10:20 Neut # (Auto) 4.31 10^3/uL (1.8-7.7) 08/01/25 10:20 Lymph # (Auto) 1.7 10^3/uL (0.8-4.8) 08/01/25 10:20 [place] # (Auto) 0.7 10^3/uL (0.2-0.9) 08/01/25 10:20 Eos # (Auto) 0.2 10^3/uL (0.0-0.8) 08/01/25 10:20 Baso # (Auto) 0.1 10^3/uL (0.0-0.1) 08/01/25 10:20 Nucleated RBC % (auto) 0 % 08/01/25 10:20 Nucleated RBCs # 0.0 /100WBC 08/01/25 10:20 Sodium 142 mmol/L (136-145) 08/01/25 10:20 Potassium 3.9 mmol/L (3.5-5.1) 08/01/25 10:20 Chloride 103 mmol/L (98-107) 08/01/25 10:20 Carbon Dioxide 28 mmol/L (22-29) 08/01/25 10:20 Anion Gap 14.9 (5-19) 08/01/25 10:20 BUN 17 mg/dL (8-23) 08/01/25 10:20 Creatinine 0.6 mg/dL (0.5-0.9) 08/01/25 10:20 GFR Calculation 100.0 mL/min (90-130) 08/01/25 10:20 Glucose 88 mg/dL (65-115) 08/01/25 10:20 Calculated Osmolality 295 mOsm/kg (285-295) 08/01/25 10:20 Calcium 9.3 mg/dL (8.5-10.5) 08/01/25 10:20 Total Bilirubin 0.2 mg/dL (0.15-1.2) 08/01/25 10:20 AST 95 U/L (0-32) H 08/01/25 10:20 ALT 96 U/L (0-33) H 08/01/25 10:20 Alkaline Phosphatase 187 U/L (35-105) H 08/01/25 10:20 Troponin T Baseline 8 ng/L (0-10) 08/01/25 10:20 Troponin T 120 Minute 6.98 ng/L (0-10) 08/01/25 12:17 Delta Troponin T -1.02 ABS# (0-10) L 08/01/25 12:17 Total Protein 6.2 g/dL (6.6-8.7) L 08/01/25 10:20 Albumin 4.0 g/dL (3.5-5.2) 08/01/25 10:20 Globulin 2.2 g/dL (1.3-4.6) 08/01/25 10:20 Urine Color Yellow (Yellow) 08/01/25 10:40 Urine Appearance Cloudy (CLEAR) A 08/01/25 10:40 Urine pH (5-7) 08/01/25 10:40 Ur Specific [place] Not Reportable 08/01/25 10:40 Urine Protein Not Reportable 08/01/25 10:40 Urine Glucose (UA) Not Reportable 08/01/25 10:40 Urine Ketones Not Reportable 08/01/25 10:40 Urine Blood Not Reportable 08/01/25 10:40 Urine Nitrate Not Reportable 08/01/25 10:40 Urine Bilirubin Not Reportable 08/01/25 10:40 Urine Urobilinogen Not Reportable 08/01/25 10:40 Ur Leukocyte Esterase Not Reportable 08/01/25 10:40 Urine RBC None /hpf (0-2) 08/01/25 10:40 Urine WBC None /hpf (0-5) 08/01/25 10:40 Ur Squamous Epith Cells 0-4 /hpf (0-5) H 08/01/25 10:40 Triple Phos Crystals 5-10 /hpf H 08/01/25 10:40 Amorphous Sediment 1+ /hpf 08/01/25 10:40 Urine Bacteria Trace /hpf (NONE) 08/01/25 10:40 Hyaline Casts 0-4 /lpf H 08/01/25 10:40 Urine Mucus Trace /hpf 08/01/25 10:40 All radiology interpretation(s) finalized by discharge EKG Data EKG 1: I personally reviewed and interpreted this EKG as follows: Interpretation: EKG 1118 2025-07-02 sinus rhythm rate of 64 GA interval 163 QTc [address] changes compared to EKG 05/29/2025 no change EKG 2: I personally reviewed and interpreted this EKG as follows: Interpretation: EKG 08/01/2025 1605 sinus rhythm rate of 67 GA interval 159 QTc [address] changes noted compared to EKG done earlier same day no change. 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
[2025-08-01 10:35] LABS: Hematocrit 40.4 % (36-47); Hemoglobin 12.50 g/dL (11.27-16.99); Mean Corpuscular HGB Conc 30.9 g/dL (30-55); Mean Corpuscular Hemoglobin 28.7 pg (27-33); Mean Corpuscular Volume 92.9 fl (85-98); Nucleated Red Blood Cells % 0 %; Platelet Count 343 10^3/cmm (157-399); Red Blood Count 4.35 10^6/uL (3.85-5.65); White Blood Count 6.98 10^3/uL (3.29-11.43)
[2025-08-01 10:49] LABS: Add Urine Microscopic? YES
[2025-08-01 10:52] LABS: Troponin(5th) Baseline 8 ng/L (0-10)
[2025-08-01 10:53] LABS: Alanine Aminotransferase 96 U/L (0-33); Albumin Level 4.0 g/dL (3.5-5.2); Alkaline Phosphatase 187 U/L (35-105); Anion Gap 14.9 (5-19); Aspartate Amino Transferase 95 U/L (0-32); Blood Urea Nitrogen 17 mg/dL (8-23); Calcium 9.3 mg/dL (8.5-10.5); Carbon Dioxide 28 mmol/L (22-29); Chloride 103 mmol/L (98-107); Globulin 2.2 g/dL (1.3-4.6); Glucose 88 mg/dL (65-115); Osmolality Calculated 295 mOsm/kg (285-295); Potassium 3.9 mmol/L (3.5-5.1); Sodium 142 mmol/L (136-145); Total Protein 6.2 g/dL (6.6-8.7)
--- NOTE | 2025-08-01 10:55 | XR_ITS ---
WS: [id number] XR chest 1V portable [id number] REASON FOR EXAM: Syncope FINDINGS: Chest is unchanged compared to 10/07/2021. Moderate tortuosity and ectasia of the ascending and descending thoracic aorta. Heart size at the upper limits of normal. Calcified granulomatous disease bilaterally. No acute pulmonary parenchymal or pleural abnormality. Significant osteoarthritis in both shoulder joints. Moderate degenerative spondylosis in the mid and lower thoracic spine. XR/XR chest 1V portable [id number] IMPRESSION: Stable chest without acute abnormality.
--- NOTE | 2025-08-01 11:38 | PC.NURSE ---
per [facility] staff, they did compressions for 15 min. pt does recall them pumping on chest . staff states they applied AED to pt and it stated to do compressions, did not advise shock. staff states they did do q2min pulse checks and felt a weak, thready pulse. reports after 15min they got rhythm back . pt reports waking up sitting in chair.
[2025-08-01 12:49] LABS: Troponin 5 2HR 6.98 ng/L (0-10)
[2025-08-01 12:50] LABS: Troponin 5 2HR Delta -1.02 ABS# (0-10)
--- NOTE | 2025-08-01 12:53 | P.CONIM_ITS ---
Providers/Reason For Consult 2 Consulting Physician/Specialty*: Dr TITO Ferreira./ CARDIOLOGY Reason for Consult*: Near syncope/ cardiac arrest // bradycardia Requesting Physician: Dr. Chen Attending Physician: Dr. Chen Primary Care Provider: MARIE Rivas History of Present Illness History of Present Illness Bela Jennings is a 65 year old female is admitted to hospital through the emergency room, where she was brought from the [facility] with an episode of passing out spell and bradycardia. This patient has a history of hypertension and dyslipidemia. She apparently was seen in the [facility] by her primary care provider today for a scheduled visit. While she was talking with the provider, she felt fainty and felt like going to pass out. Next thing she remembers is that somebody was thumping on her chest. Based on the patient is a description, somebody placed 80 on her but she did not get any shock. She was found to have a slow pulse in the 30s?. She also was found to be pale and diaphoretic by the ambulance people but later on she regained her color. When the ambulance crew checked her pulse, it was in the 60s. Her blood pressure also was found to be in the normal range. Based on the ER documentation, she had a 15 minutes of CPR?. According to him, she was sitting up in the chair most of this time?. Denies any fever, chills or cough. No headache or blurring of vision. No numbness or weakness of the extremities. No other specific complaints. This patient has a history of high blood pressure for many years. She may have taken the blood pressure medication for more than 10 years. However she was recently taken off this medication since the blood pressure was staying in the normal range. She has been taking the cholesterol medication for the last more than 10 years. No history for diabetes. No history for any cardiac arrhythmia, coronary artery disease, myocardial infarction or congestive heart failure. A month ago, patient had the right knee replacement. Following this surgery, she had an episode when while she was coming out of the shower she had a dizzy/lightheaded feeling. But never passed out. She never had any other episodes of near syncope or syncope. She has no history of early smoking abuse or alcohol abuse. Her mother had a permanent pacer implantation in her 70s?. Other details are not available. Review of Systems 2 Narrative: CONSTITUTIONAL: No fever or chills. EYES: No blurring of vision or other visual disturbances lately. ENT: No hoarseness of voice, auditory disturbances or sore throat. CARDIOVASCULAR: As mentioned above. RESPIRATORY: No significant cough. GASTROINTESTINAL: No hematemesis or melena. GENITOURINARY: No dysuria or hematuria. INTEGUMENTARY: No skin rashes or history of skin cancer. NEURO: No transient ischemic attacks or amaurosis. PSYCHIATRIC: No history of psychosis or major depression. HEMATOLOGIC: No bleeding disorders or significant anemia. ENDOCRINE: No history of polyuria or polydipsia. MUSCULOSKELETAL: Had the right knee replacement a month ago ALLERGY/IMMUNOLOGY: As mentioned above. Medications/Allergies Home Medications ?Medication ?Instructions ?Recorded ?Confirmed ?Last Taken ?Type potassium gluconate 600 mg (99 mg) 600 mg PO BEDTIME 1 08/01/25 07/31/25 21:00 History tablet CPAP machine and supplies #1 ea 04/03/25 08/01/25 Unkn own Rx oxycodone 5 mg tablet 5 mg PO Q4H PRN Pain (Scale Score 06/26/25 08/01/25 07/31/25 History 4-6) cetirizine 10 mg tablet (Zyrtec) 10 mg PO DAILY #90 ta bs 08/01/25 08/01/25 07/31/25 Rx cholecalciferol (vitamin D3) 1,250 50,000 unit PO .jaimee ry 14 days #2 08/01/25 08/01/25 Unknown Rx mcg (50,000 unit) capsule caps desvenlafaxine succinate 100 mg 100 mg PO DAILY #90 ta bs 08/01/25 08/01/25 07/31/25 Rx tablet,extended release 24 hr (Pristiq) ibandronate 150 mg tablet 150 mg PO .monthly #3 tabs 1 10/01/24 08/01/25 Unknown Rx levothyroxine 50 mcg tablet See Rx Instructions PO .CO MPLEX 08/01/25 08/01/25 08/01/25 Rx #100 tabs linaclotide 145 mcg capsule 145 mcg PO QAM #90 caps 08/01/25 07/31/25 Rx (Linzess) magnesium oxide 400 mg (241.3 mg 400 mg PO DAILY 08/0108/01/25 07/31/25 History magnesium) tablet (MagOx) pravastatin 20 mg tablet 20 mg PO BEDTIME #90 tabs 08/01/25 07/31/25 21:00 Rx Allergies Allergy/AdvReac Type Severity Reaction Status Date / Time prednisone Allergy Intermediate ADR-Gastrointestinal Verified 08/01/25 08:02 Upset NSAIDS (Non-Steroidal Allergy Mild ADR-Gastrointestinal Verified 08/01/25 08:02 Anti-Inflamma Upset Sulfa (Sulfonamide AdvReac Intermediate anxiety Verified 08/01/25 08:02 Antibiotics) PFSH Acute 2 PFSH: Medical History Irritable bowel syndrome with constipation and diarrhea FIGUEROA on CPAP Vitamin D deficiency Metabolic syndrome Obesity (BMI 30-39.9) Age related osteoporosis Anxiety Hx of diverticulitis of colon Hx MRSA infection Chronic osteoarthritis Chronic constipation Obstructive sleep apnea cpap Mixed hyperlipidemia Gastric reflux Seasonal allergic conjunctivitis Adult onset hypothyroidism Essential (primary) hypertension Surgical History History of left knee replacement August 18, 2022 History of gastric restrictive surgery January 26, 2023 in [place] History of colonoscopy (12/11/21) History of bilateral salpingo-oophorectomy (BSO) Hx of hysterectomy (~1994) History of kidney surgery (~1993) Hx of tonsillectomy Hx of cholecystectomy (~1997) History of esophagogastroduodenoscopy (EGD) (12/11/21) Family History Other Cancer Diabetes Hypertension Denies family history of Dementia Stroke Social History Smoking and tobacco/nicotine status: never used tobacco/nicotine Second hand smoke exposure: No Alcohol intake: never Substance/Drug Use: never Adopted: No Caregiver/support person: No Lives independently: Yes Household members: spouse Housing: House Marital status: Number of children: 2 service: No Current occupational status: retired Do you think of yourself as: Straight/Heterosexual Current gender identity: Female Vitals/I&O/Wt Last Vital Signs Temp 98.3 F 11/18/25 10:11 Pulse 71 08/01/25 12:52 Resp 18 08/01/25 10:29 BP 120/79 08/01/25 12:52 Pulse Ox 99 08/01/25 12:52 O2 Del Method Room Air 08/01/25 12:52 Weight last 48 hrs Weight 174 lb Physical Exam 2 Narrative: GENERAL: The patient is alert and oriented times three. Not in any acute distress. HEENT: No significant pallor, icterus or lymphadenopathy.Oral cavity: There are no mucous membrane lesions. NECK: Trachea appears to be central. No masses noted. No JVD or thyromegaly appreciated. RESPIRATORY: Chest is symmetrical. No intercostals muscle retraction or any accessory muscle activation. There is no chest wall tenderness. Breath sounds are heard bilaterally. No rales or rhonchi heard. No evidence of any consolidation. BREASTS: Deferred. HEART: The heart sounds are normal. No S3 or S4. No significant murmurs. No pericardial rub ABDOMEN: No vessel pulsations or distention. No tenderness. No organomegaly appreciated. Bowel sounds are normally heard. : Deferred. RECTAL: Deferred. LYMPHATIC: No lymphadenopathy noted in the neck. EXTREMITIES: No edema or cyanosis. No clubbing. MUSCULOSKELETAL: Mild diffuse swelling of the right knee, postoperative SKIN: There are no significant rashes or ecchymosis NEUROPSYCHIATRIC: The patient is alert and oriented x3. Appears to be in a good mood. No tremors or rigidity noted. Data 08/01/25 16:48 08/01/25 10:20 Other Labs: Laboratory Last Values WBC 6.98 10^3/uL (3.29-11.43) 08/01/25 10:20 RBC 4.35 10^6/uL (3.85-5.65) 08/01/25 10:20 Hgb 12.50 g/dL (11.27-16.99) 08/01/25 10:20 Hct 40.4 % (36-47) 08/01/25 10:20 MCV 92.9 fl (85-98) 08/01/25 10:20 MCH 28.7 pg (27-33) 08/01/25 10:20 MCHC 30.9 g/dL (30-55) 08/01/25 10:20 RDW 14.5 % (12.1-15.1) 08/01/25 10:20 Plt Count 346 10^3/cmm (157-399) 08/01/25 16:48 MPV 9.4 fL (7.4-10.4) 08/01/25 10:20 Neut % (Auto) 61.7 % 08/01/25 10:20 Lymph % (Auto) 24.1 % 08/01/25 10:20 [place] % (Auto) 9.6 % 08/01/25 10:20 Eos % (Auto) 3.3 % 08/01/25 10:20 Baso % (Auto) 0.7 % 08/01/25 10:20 Neut # (Auto) 4.31 10^3/uL (1.8-7.7) 08/01/25 10:20 Lymph # (Auto) 1.7 10^3/uL (0.8-4.8) 08/01/25 10:20 [place] # (Auto) 0.7 10^3/uL (0.2-0.9) 08/01/25 10:20 Eos # (Auto) 0.2 10^3/uL (0.0-0.8) 08/01/25 10:20 Baso # (Auto) 0.1 10^3/uL (0.0-0.1) 08/01/25 10:20 Nucleated RBC % (auto) 0 % 08/01/25 10:20 Nucleated RBCs # 0.0 /100WBC 08/01/25 10:20 PT 13.40 SECONDS (12.1-14.9) 08/01/25 16:48 INR 0.96 (0.8-1.2) 08/01/25 16:48 APTT 28.3 SECONDS (23.9-36.7) 08/01/25 16:48 Fibrinogen 356 mg/dL (174-498) 08/01/25 16:48 D-Dimer 2.08 ug/mLFEU (0-0.59) H 08/01/25 16:48 Sodium 142 mmol/L (136-145) 08/01/25 10:20 Potassium 3.9 mmol/L (3.5-5.1) 08/01/25 10:20 Chloride 103 mmol/L (98-107) 08/01/25 10:20 Carbon Dioxide 28 mmol/L (22-29) 08/01/25 10:20 Anion Gap 14.9 (5-19) 08/01/25 10:20 BUN 17 mg/dL (8-23) 08/01/25 10:20 Creatinine 0.6 mg/dL (0.5-0.9) 08/01/25 10:20 GFR Calculation 100.0 mL/min (90-130) 08/01/25 10:20 Glucose 88 mg/dL (65-115) 08/01/25 10:20 Calculated Osmolality 295 mOsm/kg (285-295) 08/01/25 10:20 Calcium 9.3 mg/dL (8.5-10.5) 08/01/25 10:20 Total Bilirubin 0.2 mg/dL (0.15-1.2) 08/01/25 10:20 AST 95 U/L (0-32) H 08/01/25 10:20 ALT 96 U/L (0-33) H 08/01/25 10:20 Alkaline Phosphatase 187 U/L (35-105) H 08/01/25 10:20 Troponin T Baseline 8 ng/L (0-10) 08/01/25 10:20 Troponin T 120 Minute 6.98 ng/L (0-10) 08/01/25 12:17 Delta Troponin T -1.02 ABS# (0-10) L 08/01/25 12:17 Troponin T Hi Sens 6Hr 7.43 ng/L (0-10) 08/01/25 16:48 Troponin T Hi Sens 6Hr Delta -0.57 ng/L (0-12) L 08/01/25 16:48 Total Protein 6.2 g/dL (6.6-8.7) L 08/01/25 10:20 Albumin 4.0 g/dL (3.5-5.2) 08/01/25 10:20 Globulin 2.2 g/dL (1.3-4.6) 08/01/25 10:20 Urine Color Yellow (Yellow) 08/01/25 10:40 Urine Appearance Cloudy (CLEAR) A 08/01/25 10:40 Urine pH (5-7) 08/01/25 10:40 Ur Specific [place] Not Reportable 08/01/25 10:40 Urine Protein Not Reportable 08/01/25 10:40 Urine Glucose (UA) Not Reportable 08/01/25 10:40 Urine Ketones Not Reportable 08/01/25 10:40 Urine Blood Not Reportable 08/01/25 10:40 Urine Nitrate Not Reportable 08/01/25 10:40 Urine Bilirubin Not Reportable 08/01/25 10:40 Urine Urobilinogen Not Reportable 08/01/25 10:40 Ur Leukocyte Esterase Not Reportable 08/01/25 10:40 Urine RBC None /hpf (0-2) 08/01/25 10:40 Urine WBC None /hpf (0-5) 08/01/25 10:40 Ur Squamous Epith Cells 0-4 /hpf (0-5) H 08/01/25 10:40 Triple Phos Crystals 5-10 /hpf H 08/01/25 10:40 Amorphous Sediment 1+ /hpf 08/01/25 10:40 Urine Bacteria Trace /hpf (NONE) 08/01/25 10:40 Hyaline Casts 0-4 /lpf H 08/01/25 10:40 Urine Mucus Trace /hpf 08/01/25 10:40 A&P Assessment and plan 1. Syncope, unspecified syncope type: Very possible that the patient may have had a vasovagal syncope. Possibility of her having is sinus artem dysfunction causing severe bradycardia and a syncopal episode also is a consideration. Possibility of coronary ischemia causing this also is a consideration. Currently she seems to be in normal sinus rhythm no evidence of myocardial injury so far. 2. Bradycardia: Patient had a questionable bradycardia with a heart rate in the 30s in the primary care provider's office. No EKG or rhythm strip documentation. Possibility of a vagal inhibitory response or sinus artem dysfunction causing this are considerations. 3. History of chronic hypertension: The blood pressure is slightly elevated. Patient is of any antihypertensive medication at this time. 4. Dyslipidemia (high LDL; low HDL): Patient is on pravastatin. This may be continued. Plan: Possibility of coronary ischemia is a consideration. However the EKG is unremarkable and there is no evidence of any myocardial injury. For further evaluation of her coronary status, a Myocardial perfusion imaging would be appropriate. This may be scheduled in the morning. I may Go ahead and do a TSH on the blood in the lab If she has no evidence of ischemia, patient may be discharged home with a long- term event monitor for a month. Based on the results of this, further recommendations will be made. Thank you for the opportunity to evaluate this patient and make these recommendations PDMP PDMP Reviewed: Not Reviewed Coding Level of Care Code 44667 Diagnoses Syncope, unspecified syncope type R55 Syncope type: unspecified Bradycardia R00.1 History of chronic hypertension Z86.79 Dyslipidemia (high LDL; low HDL) E78.5
--- NOTE | 2025-08-01 13:57 | PC.NURSE ---
patient refused foot pumps. Patient is ambulatory.
--- NOTE | 2025-08-01 14:16 | PM.HP ---
Providers/Chief Complaint Admitting Physician: Himanshu Clarke MD Primary Care Provider: Lisette Sheehan, [employer] Chief Complaint: syncope History of Present Illness Bela Jennings is a 65 year old female with prior medical history of HTN, HLD, FIGUEROA on CPAP, IBS, MRSA, gastric restrictive surgery, cholecystectomy, hysterectomy, hypothyroidism, osteoarthritis, and diverticulitis presenting with complaints of syncope. Today, patient had an office visit with her primary care physician, Dr. hSeehan when in a seated position she became dizzy, lightheaded, and experienced an episode of syncope. Vitals were checked and her heart rate had dropped into the 30s. Patient was partially aware when staff ran a code for approximately 15 minutes including use of AED. EMS was called and she was transported to [facility] ED for further assessment. and Daughter at bedside. Heart rate was 50s?60s in the ED. Of note, patient reports that she had a syncopal episode a day after her procedure and also passed out for approximately 1 week after as well. Her blood pressure in these episodes has been found to be as low as 69 systolic. Patient was supposed to have CPM therapy today and will reschedule. She currently has right leg swelling and pain. Vitals WNL with exception of HR 59 upon arrival. CBC WNL. Chemistry; AST, ALT WNL. Urine cloudy. CXR; stable chest without acute abnormality. Bitlateral leg venous doppler pending.Coag panel, d-dimer pending. Will admit to hospital service for further evaluation and treatment and observation status. Review of Systems Const: Denies: fever(s) or chills Eyes: Denies: change in vision Card: Denies: chest pain Resp: Denies: dyspnea GI: Denies: abdominal pain, nausea, vomiting, diarrhea, constipation or change in bowel habits : Denies: dysuria, urinary frequency or urinary urgency Musc: Reports: joint pain, joint swelling, joint warmth and joint stiffness; Denies: neck pain or back pain Skin/Breast: Denies: rash Neuro: Reports: dizziness; Denies: headache(s) Medications/Allergies Home Medications ?Medication ?Instructions ?Recorded ?Confirmed ?Last Taken ?Type potassium gluconate 600 mg (99 mg) 600 mg PO BEDTIME 06/26/21 08/01/25 07/31/25 21:00 History tablet CPAP machine and supplies #1 ea 04/03/25 08/01/25 Unknown Rx oxycodone 5 mg tablet 5 mg PO Q4H PRN Pain (Scale Score 06/26/25 08/01/25 07/31/25 History 4-6) cetirizine 10 mg tablet (Zyrtec) 10 mg PO DAILY #90 tabs 08/01/25 08/01/25 07/31/25 Rx cholecalciferol (vitamin D3) 1,250 50,000 unit PO .every 14 days #2 08/01/25 08/01/25 Unknown Rx mcg (50,000 unit) capsule caps desvenlafaxine succinate 100 mg 100 mg PO DAILY #90 tabs 08/01/25 08/01/25 07/31/25 Rx tablet,extended release 24 hr (Pristiq) ibandronate 150 mg tablet 150 mg PO .monthly #3 tabs 08/01/25 08/01/25 Unknown Rx levothyroxine 50 mcg tablet See Rx Instructions PO .COMPLEX 08/01/25 08/01/25 08/01/25 Rx #100 tabs linaclotide 145 mcg capsule 145 mcg PO QAM #90 caps 08/01/25 08/01/25 07/31/25 Rx (Linzess) magnesium oxide 400 mg (241.3 mg 400 mg PO DAILY 08/01/25 08/01/25 07/31/25 History magnesium) tablet (MagOx) pravastatin 20 mg tablet 20 mg PO BEDTIME #90 tabs 08/01/25 08/01/25 07/31/25 21:00 Rx Allergies Allergy/AdvReac Type Severity Reaction Status Date / Time prednisone Allergy Intermediate ADR-Gastrointestinal Verified 08/01/25 08:02 Upset NSAIDS (Non-Steroidal Allergy Mild ADR-Gastrointestinal Verified 08/01/25 08:02 Anti-Inflamma Upset Sulfa (Sulfonamide AdvReac Intermediate anxiety Verified 08/01/25 08:02 Antibiotics) PFSH Acute PFSH: Medical History Irritable bowel syndrome with constipation and diarrhea FIGUEROA on CPAP Vitamin D deficiency Metabolic syndrome Obesity (BMI 30-39.9) Age related osteoporosis Anxiety Hx of diverticulitis of colon Hx MRSA infection Chronic osteoarthritis Chronic constipation Obstructive sleep apnea cpap Mixed hyperlipidemia Gastric reflux Seasonal allergic conjunctivitis Adult onset hypothyroidism Essential (primary) hypertension Surgical History History of left knee replacement August 18, 2022 History of gastric restrictive surgery January 26, 2023 in [place] History of colonoscopy (12/11/21) History of bilateral salpingo-oophorectomy (BSO) Hx of hysterectomy (~1994) History of kidney surgery (~1993) Hx of tonsillectomy Hx of cholecystectomy (~1997) History of esophagogastroduodenoscopy (EGD) (12/11/21) Family History Other Cancer Diabetes Hypertension Denies family history of Dementia Stroke Social History Smoking and tobacco/nicotine status: never used tobacco/nicotine Second hand smoke exposure: No Alcohol intake: never Substance/Drug Use: never Adopted: No Caregiver/support person: No Lives independently: Yes Household members: spouse Housing: House Marital status: Number of children: 2 service: No Current occupational status: retired Do you think of yourself as: Straight/Heterosexual Current gender identity: Female Vitals/I&O/Wt Last Vital Signs Temp 98.1 F 08/01/25 13:37 Pulse 77 08/01/25 13:58 Resp 14 08/01/25 13:37 BP 129/74 08/01/25 13:37 Pulse Ox 95 08/01/25 13:37 O2 Del Method Room Air 08/01/25 13:46 Weight last 48 hrs Weight 81.5 kg Weight 78.925 kg Physical Exam Const: COMMON NORMALS: no acute distress and patient oriented x3 Resp: COMMON NORMALS: normal respiratory effort, No retractions, No use of accessory muscles and clear to auscultation bilaterally AUSCULTATION: clear to auscultation bilaterally Cardio: COMMON NORMALS: regular rate, regular rhythm, S1 normal heart sound present and S2 normal heart sound present RATE: regular rate RHYTHM: regular rhythm HEART SOUNDS: S1 normal heart sound present and S2 normal heart sound present GI: COMMON NORMALS: Normal to inspection, nondistended, normoactive bowel sounds present and non-tender Extremity: COMMON NORMALS: no pedal edema OTHER: Right leg swelling and tenderness Neuro: COMMON NORMALS: patient oriented x3 Psych: COMMON NORMALS: mental status grossly normal Urinary Catheter Management: Ribeiro: Cath Placed During This Visit: yes, but has since been removed by the nurse Reason for Continuing Indwelling Catheter: Other Urinary Catheter Date of Insertion: 06/15/25 Urinary Catheter Time of Insertion: 14:40 Date Urinary Catheter Removed: 06/16/25 Time Urinary Catheter Discontinued: 08:00 Data 08/01/25 10:20 08/01/25 10:20 A&P Assessment and plan 1. Syncope: No known history of CAD Patient had syncopal episode at PCP office today, prior instances of syncope/near-syncpoe 50 minutes of compressions and AED used, patient has memory of some of this Fall risk precautions Cardiology consulted, recommendations appreciated Serial troponins Orthostatic vitals ordered EKG Telemetry Admit to observation 2. Pain and swelling of right lower leg: D-dimer and coag pending BLE venous doppler pending Pain management 3. Essential (primary) hypertension: Vitals stable at this time Patient on home lisinopril that was held in June secondary to hypotension BP monitoring 4. Status post total right knee replacement using cement: Procedure 06/12/25 Patient completed home PT, now in outpatient PT/OT Fall risk precautions 5. Adult onset hypothyroidism: Continue home levothyroxine 6. FIGUEROA on CPAP: Continue home CPAP Pulse oximetry Supplemental O2 to keep saturations greater than 92% RT PDMP PDMP Reviewed: Not Reviewed Attestations Medical Necessity Statement*: Initial hospitalization for at least one midnight in observation status secondary to syncopal episode and LOC requiring CPR with AED and unitlateral right leg swelling and pain DVT/PE rule out. Diagnoses Syncope R55 Pain and swelling of right lower leg M79.661; M79.89 Essential (primary) hypertension I10 Status post total right knee replacement using cement Z96.651 Adult onset hypothyroidism E03.8 FIGUEROA on CPAP G47.33 Time Spent (min) 70
[2025-08-01] MEDS: pantoprazole 40 mg SDV IVP (14:18)
--- NOTE | 2025-08-01 14:57 | USCV_ITS ---
Bela Jennings Age: 65 Gender: F : 1960 Exam Date: 08/01/2025 16:15 Ordering Phys: April Hammond BIOCHEMISTRY TECHNOLOGIST Technologist: Exam Location: [facility] [place] Indication: swelling HISTORY: Lower extremity swelling. Pt had right knee surgery in June PROCEDURES: The venous duplex Doppler examination of both lower extremities was performed in the standard fashion.serial compression, augmentation maneuvers, and spectral Doppler flow evaluation were performed. FINDINGS: No evidence of DVT seen in any vessel visualized at this time. CONCLUSIONS No evidence of right lower extremity DVT. No evidence of left lower extremity DVT. Matt Branham MD (Electronically Signed) Final Date: 01 August 2025 16:47 S
--- NOTE | 2025-08-01 16:12 | ECG_ITS ---
[facility] 2025[facility] Pat Name: Bela Jennings Department: Room: 112 Gender: Female Supervisor Testing: : 1960 Requested By: Justen Dunham Order Number: [id number] Pranay MD: Boston Murillo M.D. Measurements Intervals [place] Rate: 67 P: 43 SC: 159 QRS: 30 QRSD: 93 T: 55 QT: 398 QTc: 423 Interpretive Statements SINUS RHYTHM Compared to ECG 08/01/2025 10:19:16 No significant changes Electronically Signed On 08-03-2025 00:09:12 GRIND OPERATOR by Boston Murillo M.D. [email or web address]
[2025-08-01 17:34] LABS: Platelet Count 346 10^3/cmm (157-399)
[2025-08-01 17:48] LABS: INR 0.96 (0.8-1.2); Prothrombin Time 13.40 SECONDS (12.1-14.9)
[2025-08-01 17:49] LABS: Fibrinogen 356 mg/dL (174-498); Partial Thromboplastin Time 28.3 SECONDS (23.9-36.7)
[2025-08-01 18:03] LABS: Troponin 5 6HR 7.43 ng/L (0-10); Troponin 5 6HR Delta -0.57 ng/L (0-12)
--- NOTE | 2025-08-01 19:47 | ECG_ITS ---
[facility] Test Date: 2025-08-02 Pat Name: Bela Jennings Department: Room: 112 Gender: Female Grocery Buyer: : 1960 Requested By: Boston Murillo Order Number: [id number] Pranay MD: Boston Murillo M.D. Interpretive Statements Lung unchanged pre/post procedure; Intraprocedure shortess of breath; Symptoms resoled by discharge PROCEDURE: At the baseline, the EKG revealed normal sinus rhythm with a normal ST Ts. The baseline heart was 70 bpm with a blood pressue of 165/85 mm of Hg Lexiscan was infused over a period of 20 seconds. A total of 0.4 milligrams of Lexiscan was infused. The stress phase was continued for a total of 5 minutes. Heart rate at the end of the stress phase was 98 bpm with a blood pressure 147/85 mm of Hg. The EKG at the peak infusion revealed no significant changes. Sestamibi was injected 20 seconds after the Lexiscan infusion. Heart rate at the end of the recovery phase was 92 bpm with a blood pressure of 139/80 mm of Hg. CONCLUSION: 1. No significant EKG changes with the LexiScan infusion 2. No LexiScan induced chest pain or cardiac arrhythmia 3. Normal blood pressure and heart rate response 4. Sestamibi/sestamibi perfusion scan pending; see separate report. Electronically Signed On 08-04-2025 17:36:15 HOSPITAL NURSE by Boston Murillo M.D. [email or web address]
[2025-08-02] VITALS: BP 155/76; PULSE 74; RESP 17; TEMP 37.2; O2SAT 96
[2025-08-02 00:37] LABS: Thyroid Stimulating Hormone 1.69 uIU/mL (0.27-4.20)
[2025-08-02 04:00] VITALS: BP 170/81; PULSE 77; RESP 17; TEMP 36.6; O2SAT 98
[2025-08-02 04:26] LABS: Hematocrit 37.9 % (36-47); Hemoglobin 11.30 g/dL (11.27-16.99); Mean Corpuscular HGB Conc 29.8 g/dL (30-55); Mean Corpuscular Hemoglobin 27.2 pg (27-33); Mean Corpuscular Volume 91.1 fl (85-98); Nucleated Red Blood Cells % 0 %; Platelet Count 311 10^3/cmm (157-399); Red Blood Count 4.16 10^6/uL (3.85-5.65); White Blood Count 5.89 10^3/uL (3.29-11.43)
[2025-08-02 04:42] LABS: Anion Gap 10.8 (5-19); Blood Urea Nitrogen 16 mg/dL (8-23); Calcium 8.5 mg/dL (8.5-10.5); Carbon Dioxide 29 mmol/L (22-29); Chloride 105 mmol/L (98-107); Glucose 94 mg/dL (65-115); Osmolality Calculated 293 mOsm/kg (285-295); Potassium 3.8 mmol/L (3.5-5.1); Sodium 141 mmol/L (136-145)
[2025-08-02 06:00] VITALS: BMI 33.6
[2025-08-02 08:00] VITALS: BP 152/89; PULSE 78; RESP 13; TEMP 36.5; O2SAT 98
[2025-08-02 08:06] VITALS: BP 139/80; PULSE 81
--- NOTE | 2025-08-02 08:29 | P.PN_ITS ---
Subjective 2 Subjective: Patient remained stable with no specific symptoms. Telemetry showed normal sinus rhythm with no bradycardic episodes. Blood pressure remains somewhat elevated. Underwent a Myocardial perfusion imaging today. Medications: Medication Review Details: Current Medications Acetaminophen (Acetaminophen 325 Mg Tablet) 650 mg PO Q6H PRN PRN Reason: Mild/Mod Pain Or Temp >/= 101 Last Admin: 08/01/25 23:13 Dose: 650 mg Aminophylline (Aminophylline 25 Mg/Ml Sdv 20 Ml) 25 mg IVP Q2M PRN PRN Reason: see dose instructions Stop: 08/03/25 06:22 Sodium Chloride (Sodium Chloride 0.9%) 1,000 mls @ 100 mls/hr IV .Q10H [facility] Last Admin: 08/02/25 00:15 Dose: 100 mls/hr Nitroglycerin (Nitroglycerin 0.4 Mg Sublingual Tablet) 0.4 mg SUBLINGUAL Q5M PRN PRN Reason: CHEST PAIN Stop: 08/03/25 06:22 Ondansetron HCl (Ondansetron 2 Mg/Ml Sdv 2 Ml) 4 mg IVP Q2M PRN PRN Reason: NAUSEA Pantoprazole Sodium (Pantoprazole 40 Mg Sdv) 40 mg IVP Q24H [facility] Last Admin: 08/01/25 14:18 Dose: 40 mg Vitals/I&O/Wt Last Vital Signs Temp 97.8 F 08/02/25 04:00 Pulse 81 08/02/25 08:06 Resp 17 08/02/25 04:00 BP 139/80 08/02/25 08:06 Pulse Ox 98 08/02/25 04:00 O2 Del Method Room Air 08/01/25 16:00 08/01/25 08/02/25 08/02/25 22:59 06:59 14:59 Intake Total 240 / 240 1000 / 1240 Balance 240 / 240 1000 / 1240 Weight last 48 hrs Weight 184 lb 1.376 oz Weight 179 lb 10.828 oz Weight 174 lb Physical Exam 2 Narrative: GENERAL: The patient is alert and oriented times three. Not in any acute distress. HEENT: No significant pallor, icterus or lymphadenopathy.Oral cavity: There are no mucous membrane lesions. NECK: Trachea appears to be central. No masses noted. No JVD or thyromegaly appreciated. RESPIRATORY: Chest is symmetrical. No intercostals muscle retraction or any accessory muscle activation. There is no chest wall tenderness. Breath sounds are heard bilaterally. No rales or rhonchi heard. No evidence of any consolidation. BREASTS: Deferred. HEART: The heart sounds are normal. No S3 or S4. No significant murmurs. No pericardial rub ABDOMEN: No vessel pulsations or distention. No tenderness. No organomegaly appreciated. Bowel sounds are normally heard. : Deferred. RECTAL: Deferred. LYMPHATIC: No lymphadenopathy noted in the neck. EXTREMITIES: No edema or cyanosis. No clubbing. MUSCULOSKELETAL: Mild diffuse swelling of the right knee, postoperative SKIN: There are no significant rashes or ecchymosis NEUROPSYCHIATRIC: The patient is alert and oriented x3. Appears to be in a good mood. No tremors or rigidity noted. Urinary Catheter Management: Ribeiro: Cath Placed During This Visit: yes, but has since been removed by the nurse Reason for Continuing Indwelling Catheter: Other Urinary Catheter Date of Insertion: 06/15/25 Urinary Catheter Time of Insertion: 14:40 Date Urinary Catheter Removed: 06/16/25 Time Urinary Catheter Discontinued: 08:00 Data 08/02/25 03:50 08/02/25 03:50 Other Labs: Laboratory Last Values WBC 5.89 10^3/uL (3.29-11.43) 08/02/25 03:50 RBC 4.16 10^6/uL (3.85-5.65) 08/02/25 03:50 Hgb 11.30 g/dL (11.27-16.99) 08/02/25 03:50 Hct 37.9 % (36-47) 08/02/25 03:50 MCV 91.1 fl (85-98) 08/02/25 03:50 MCH 27.2 pg (27-33) 08/02/25 03:50 MCHC 29.8 g/dL (30-55) L 08/02/25 03:50 RDW 14.6 % (12.1-15.1) 08/02/25 03:50 Plt Count 311 10^3/cmm (157-399) 08/02/25 03:50 MPV 9.8 fL (7.4-10.4) 08/02/25 03:50 Neut % (Auto) 45.3 % 08/02/25 03:50 Lymph % (Auto) 41.3 % 08/02/25 03:50 [place] % (Auto) 8.1 % 08/02/25 03:50 Eos % (Auto) 4.2 % 08/02/25 03:50 Baso % (Auto) 0.8 % 08/02/25 03:50 Neut # (Auto) 2.66 10^3/uL (1.8-7.7) 08/02/25 03:50 Lymph # (Auto) 2.4 10^3/uL (0.8-4.8) 08/02/25 03:50 [place] # (Auto) 0.5 10^3/uL (0.2-0.9) 08/02/25 03:50 Eos # (Auto) 0.3 10^3/uL (0.0-0.8) 08/02/25 03:50 Baso # (Auto) 0.1 10^3/uL (0.0-0.1) 08/02/25 03:50 Nucleated RBC % (auto) 0 % 08/02/25 03:50 Nucleated RBCs # 0.0 /100WBC 08/02/25 03:50 PT 13.40 SECONDS (12.1-14.9) 08/01/25 16:48 INR 0.96 (0.8-1.2) 08/01/25 16:48 APTT 28.3 SECONDS (23.9-36.7) 08/01/25 16:48 Fibrinogen 356 mg/dL (174-498) 08/01/25 16:48 D-Dimer 2.08 ug/mLFEU (0-0.59) H 08/01/25 16:48 Sodium 141 mmol/L (136-145) 08/02/25 03:50 Potassium 3.8 mmol/L (3.5-5.1) 08/02/25 03:50 Chloride 105 mmol/L (98-107) 08/02/25 03:50 Carbon Dioxide 29 mmol/L (22-29) 08/02/25 03:50 Anion Gap 10.8 (5-19) 08/02/25 03:50 BUN 16 mg/dL (8-23) 08/02/25 03:50 Creatinine 0.4 mg/dL (0.5-0.9) L 08/02/25 03:50 GFR Calculation 159.7 mL/min (90-130) H 08/02/25 03:50 Glucose 94 mg/dL (65-115) 08/02/25 03:50 Calculated Osmolality 293 mOsm/kg (285-295) 08/02/25 03:50 Calcium 8.5 mg/dL (8.5-10.5) 08/02/25 03:50 Total Bilirubin 0.2 mg/dL (0.15-1.2) 08/01/25 10:20 AST 95 U/L (0-32) H 08/01/25 10:20 ALT 96 U/L (0-33) H 08/01/25 10:20 Alkaline Phosphatase 187 U/L (35-105) H 08/01/25 10:20 Troponin T Baseline 8 ng/L (0-10) 08/01/25 10:20 Troponin T 120 Minute 6.98 ng/L (0-10) 08/01/25 12:17 Delta Troponin T -1.02 ABS# (0-10) L 08/01/25 12:17 Troponin T Hi Sens 6Hr 7.43 ng/L (0-10) 08/01/25 16:48 Troponin T Hi Sens 6Hr Delta -0.57 ng/L (0-12) L 08/01/25 16:48 Total Protein 6.2 g/dL (6.6-8.7) L 08/01/25 10:20 Albumin 4.0 g/dL (3.5-5.2) 08/01/25 10:20 Globulin 2.2 g/dL (1.3-4.6) 08/01/25 10:20 TSH 1.69 uIU/mL (0.27-4.20) 08/01/25 16:48 Urine Color Yellow (Yellow) 08/01/25 10:40 Urine Appearance Cloudy (CLEAR) A 08/01/25 10:40 Urine pH (5-7) 08/01/25 10:40 Ur Specific [place] Not Reportable 08/01/25 10:40 Urine Protein Not Reportable 08/01/25 10:40 Urine Glucose (UA) Not Reportable 08/01/25 10:40 Urine Ketones Not Reportable 08/01/25 10:40 Urine Blood Not Reportable 08/01/25 10:40 Urine Nitrate Not Reportable 08/01/25 10:40 Urine Bilirubin Not Reportable 08/01/25 10:40 Urine Urobilinogen Not Reportable 08/01/25 10:40 Ur Leukocyte Esterase Not Reportable 08/01/25 10:40 Urine RBC None /hpf (0-2) 08/01/25 10:40 Urine WBC None /hpf (0-5) 08/01/25 10:40 Ur Squamous Epith Cells 0-4 /hpf (0-5) H 08/01/25 10:40 Triple Phos Crystals 5-10 /hpf H 08/01/25 10:40 Amorphous Sediment 1+ /hpf 08/01/25 10:40 Urine Bacteria Trace /hpf (NONE) 08/01/25 10:40 Hyaline Casts 0-4 /lpf H 08/01/25 10:40 Urine Mucus Trace /hpf 08/01/25 10:40 A&P Assessment and plan 1. Syncope, unspecified syncope type: Very possible that the patient may have had a vasovagal syncope. Possibility of her having is sinus artem dysfunction causing severe bradycardia and a syncopal episode also is a consideration. Possibility of coronary ischemia causing this also is a consideration. Currently she seems to be in normal sinus rhythm no evidence of myocardial injury so far. Patient underwent a Myocardial perfusion imaging. S Low probability for coronary ischemia, based on the above findings 2. Bradycardia: Patient had a questionable bradycardia with a heart rate in the 30s in the primary care provider's office. No EKG or rhythm strip documentation. Possibility of a vagal inhibitory response or sinus artem dysfunction causing this are considerations. 3. History of chronic hypertension: Need to optimize the antihypertensive medications. 4. Dyslipidemia (high LDL; low HDL): Patient is on pravastatin. This may be continued. Plan: Discussed with the patient and her in detail the implications of the test findings. Based on the perfusion scan, the chances of her having any significant coronary artery disease causing this symptom is very low. Possibility of an arrhythmia cannot be excluded. For further management, an event monitor for a month would be appropriate. This was discussed with the patient in detail which she understood well and consented to proceed. If she remained stable, may be discharged home today. PDMP PDMP Reviewed: Not Reviewed Attestations 2 Medical Necessity Statement*: Possible discharge home today Coding Level of Care Code 05017 Diagnoses Syncope, unspecified syncope type R55 Syncope type: unspecified Bradycardia R00.1 History of chronic hypertension Z86.79 Dyslipidemia (high LDL; low HDL) E78.5
--- NOTE | 2025-08-02 09:31 | PC.CHAP ---
Pastoral Care Encounter/Spiritual Assessment Type of Contact [] Declined newscast director visit [] Patient/Family/Request visit [] Outpatient visit [] Follow-up visit [] Physician referral [] Code/Alert [] Routine visit [] Staff referral [] Actively dying [] Patient sleeping [] Family support [] [x] Out of room [] Palliative care [] [] Receiving care in room [] Pre-surgical visit [] Trauma [] Long length of stay [] ICU visit [] Other: Relational/Emotional Strength [] Patient feels connected with others/family/visitors/staff [] Distress [] Loneliness/isolation [] Abandonment Spirituality of Patient [] Person of Parvin [] Attends Rastafarian of their Parvin [] Believes in Prayer [] Reads Bible or Worship materials [] There are Spiritual issues to be addressed Motion Picture Actor Interventions [] Prayer [] Active listening [] Non-anxious presence [] Spiritual/emotional support [] Crisis/trauma care [] Spiritual counseling [] Bereavement support [] Provided bereavement packet [] Provided Bible/devotional materials [] Provided toy/stuffed animal, coloring book to patient or family member [] Provided Communion [] Anointing/Rush [] Salvation [] Completed spiritual assessment [] Other: Impact on Illness or Injury [] Angry [] Fearful [] Anxious [] Often cries [] Exhaustion [] Unable to work [] Unable to attend zoroastrian [] Unable to walk/stand [] Unable to read [] Unable to drive [] Unable to eat/drink [] Unable to sleep [] Unable to be with family [] Patient intubated [] Other: Summary Time spent with patient
[2025-08-02 12:00] VITALS: BP 151/77; PULSE 92; RESP 15; O2SAT 97
--- OUTSIDE RECORDS SUMMARY | 2025-08-02 12:26 | XMS_ITS | Clinical Summary ---
Author Organization [facility] Administrative Offices Address [address] [place] [id number] Care Team Providers Care Home Appliance Technician Name Role Phone Unavailable Primary Care Provider Unavailabl e Allergies Active Allergy Reactions Criticality Noted Date Comments Nsaids (Non-Steroidal Anti-Inflammatory Drug) Other (See Comments) 02/07/2025 Bariatric Surgery Prednisone Other (See Comments) 02/07/2025 Bariatric Surgery Sulfur Other (See Comments) 03/10/2024 Pt states she was told not to take it; states it gave her cognitive problems Medications cetirizine (ZyrTEC) 10 mg tablet Take 10 mg by mouth daily. Active cholecalciferol 1,250 mcg (50,000 unit) Capsule Take by mouth every 2 weeks. Active furosemide (LASIX) 20 mg tablet Take 20 mg by mouth daily. Active ibandronate (BONIVA) 150 mg tablet Take 150 mg by mouth every 30 days. Active levothyroxine (SYNTHROID) 25 mcg/mL oral suspension compound Take by mouth daily in the morning. Active lisinopriL (PRINIVIL) 10 mg tablet Take 10 mg by mouth daily. Active POTASSIUM GLUCONATE ORAL Take by mouth daily. Active pravastatin (PRAVACHOL) 20 mg tablet Take 20 mg by mouth daily at bedtime. Active MAGNESIUM OXIDE ORAL Take by mouth daily. Active CYANOCOBALAMIN, VITAMIN B-12, ORAL Take by mouth daily. Active multivitamin (DAILY-ARIELLA) tablet Take 1 Tablet by mouth daily. Bariatric Pal Bariatric Multivitamin Capsule Active docusate sodium (STOOL SOFTENER ORAL) Take by mouth 2 times daily. Active esomeprazole (NexIUM) 40 mg Capsule, Delayed Release(E.C.) Take 1 Capsule (40 mg) by mouth daily before breakfast. 90 Capsule 3 5 Active pantoprazole (Protonix) 40 mg Tablet, Delayed Release (E.C.)Indicatio ns:Epigastric abdominal pain Take 1 Tablet (40 mg) by mouth 2 times daily. 180 Tablet 1 Active sucralfate (Carafate) 100 mg/mL suspensionIndic ations:Epigastr ic abdominal pain Take 10 mL (1 Gram) by mouth 4 times daily. 1200 mL Active traMADol (ULTRAM) 50 mg tablet Take 50 mg by mouth. Active Active Problems Problem Noted Date Diagnosed Date Gastroesophageal reflux disease without esophagi tis 08/11/2024 Hiatal hernia 03/10/2024 History of sleeve gastrectomy 03/10/2024 Spigelian hernia 03/10/2024 Encounters Date Type Department Care Team Description 07/18/2025 External Device Data [facility] ABSTRACTION Provider, Abstract 06/20/2025 External Device Data [facility] ABSTRACTION Provider, Abstract 05/30/2025 External Device Data [facility] ABSTRACTION Provider, Abstract 05/29/2025 Telephone [facility] [address] [phone] Tashi Martin MD Question; Information 05/18/2025 10:15 AM CDT - 05/18/2025 11:59 PM CDT Hospital En[facility] [address] [place] [phone] Tashi Martin MD Gott, Austin T, RD History of sleeve gastrectomy Discharge Disposition: Home or Self Care 05/10/2025 External Device Data [facility] ABSTRACTION Provider, Abstract 05/03/2025 External Device Data [facility] ABSTRACTION Provider, Abstract 05/02/2025 8:10 AM CDT Telephone Check Up [facility] Gen Spec [facility]urg [address] [phone] Tashi Melo PA S/P gastric bypass (Primary Dx); Intestinal malabsorption, unspecified type 05/02/2025 External Device Data [facility] ABSTRACTION Provider, Abstract from Last 3 Months Family History Medical History Relation Name Comments Diabetes Mother Violette romano Heart Disease Mother Violette romano Pacemaker High Cholesterol Mother Violette romano Hypertension Mother Violette romano Osteoporosis Mother Violette romano Relation Name Status Comments Mother Violette romano Alive Social History Tobacco Use Types Packs/Day Years Used Date Smoking Tobacco: Never Passive Smoke Exposure: Yes Tobacco Cessation:Counseling Given: Not Answered Comments:It was when i was teenager and it was occasionally Alcohol Use Standard Drinks/Week Comments Not Currently 0 (1 standard drink = 0.6 oz pur e alcohol) Feeling Safe Answer Date Recorded Are you in a relationship wi th someone who hurts you emotionally and/or physically? No 02/17/2025 Food Insecurity Answer Date Recorded Patient needs follow up regardin 01/04/2025 Transportation Needs Answer Date Record ed Patient needs follow up regardin 01/04/2025 Housing Stability Answer Date Recorded Social/Environmental Concerns No concerns Utility Needs Answer Date Recorded Patient needs follow up regardin 01/04/2025 Comments No Sex and Gender Information Value Date Recorded Sex Assigned at Not on file Legal Sex Female 3:52 PM ONLINE ADVERTISING MANAGER Gender Identity Not on file Sexual Orientation Not on file Last Filed Vital Signs Vital Sign Reading Time Taken Comments Blood Pressure 114/56 02/21/2025 7:40 AM CDT Pulse 52 02/21/2025 7:40 AM CDT Temperature 36.2 C (97.2 F) 02/21/2025 7:40 AM CDT Respiratory Rate 18 02/21/2025 7:40 AM CDT Oxygen Saturation 95% 02/21/2025 7:40 AM CDT Inhaled Oxygen Concentration - - Weight 81.7 kg (180 lb 1.9 oz) 02/21/2025 5:20 A M CDT Height 157.5 cm (5' 2 ) 02/21/2025 5:20 AM CDT Body Mass Index 32.94 02/21/2025 5:20 AM CDT Plan of Treatment Upcoming Encounters Date Type Department Care Team (Late st Contact Info) Description 08/16/2025 10:15 AM ONLINE ADVERTISING MANAGER Appointment [place] [address] [place] [phone] Tashi Martin MD [address] [place] [address] [address] [place] [address] James Hodgson, CODY 08/29/2025 2:15 PM ONLINE ADVERTISING MANAGER Telephone Check Up [facility] [address] [place] [address] Tashi Melo PA [address] [place] [address] Health Maintenance Due Date Last Done Comments Pre-Diabetes and Diabetes Screening 1959 DTAP/TDAP/TD VACCINES (1 - Tdap) 1978 BREAST CANCER SCREENING 1999 COLORECTAL SCREENING 2004 Colorectal Cancer Screening 2004 FIT-DNA Q 3 years 2004 FIT/FOBT Q 1 year 2004 Flex Sig/CT Colonography Q 5 years 2004 PNEUMOCOCCAL VACCINE 50+ YEA RS (1 of 1 - PCV) 2009 ZOSTER VACCINE (1 of 2) 2009 OSTEOPOROSIS SCREENING 2024 INFLUENZA VACCINE (#1) 2025 06/21/2013 COVID-19 Vaccine ( - 2024- season) 2025 01/08/2022, 02/26/2021, 01/29/2021 RSV VACCINE (60+ or ) (1 - 1-dose 75+ series) 2034 Medical Devices Implanted Type Area Threader Device Identifier Shelf Expiration Date Model / Serial / Lot Mesh Ventralight Ellipse 4x6in [id number] - [id number] Implanted:Qty: 1 on 04/25/2024 by Tashi Martin MD at [facility] Mesh N/A: Abdomen BARD DAVOL [id number] 01/09/2026 [id number] / / [id number] Insurance [facility] [facility] RX [employer] Commercial Advance Directives For more information, please contact: [phone] * Full Code (Latest Code Status on File) Date Activated Date Inactivated Comments 08/10/2024 10:01 AM 08/11/2024 12:59 PM * Full Code Date Activated Date Inactivated Comments 08/10/2024 5:21 AM 08/10/2024 10:01 AM * Full Code Date Activated Date Inactivated Comments 04/25/2024 6:12 AM 04/25/2024 6:24 PM
--- OUTSIDE RECORDS SUMMARY | 2025-08-02 12:27 | XMS_ITS | Encounter Summary ---
Author Organization [facility] Address [address] [place] [address] Care Team Providers Care Television Installer Name Role Phone Unavailable Primary Care Provider Unavailabl e Encounter Details Date Type Department Care Team (Latest Contact Info) Description 06/14/2002 Outpatient Historical [facility] [address] [phone] Marilia Ely MD IRRITABLE COLON (Primary Dx) Social History Tobacco Use Types Packs/Day Years Used Date Smoking Tobacco: Never Assessed Comments Unknown Sex and Gender Information Value Date Recorded Sex Assigned at Not on file Legal Sex Female 3:45 AM CRATE LINER Gender Identity Not on file Sexual Orientation Not on file documented as of this encounter Plan of Treatment Not on file documented as of this encounter Visit Diagnoses Diagnosis Irritable bowel syndrome- Primary documented in this encounter
--- OUTSIDE RECORDS SUMMARY | 2025-08-02 12:27 | XMS_ITS | Encounter Summary ---
Author Organization [facility] Address [address] [place] [address] Care Team Providers Care Retail Salesperson Name Role Phone Unavailable Primary Care Provider Unavailabl e Encounter Details Date Type Department Care Team (Latest Contact Info) Description 06/27/2002 Outpatient Historical [facility] [place] [address] [phone] Marilia Ely MD IRRITABLE COLON (Primary Dx) Social History Tobacco Use Types Packs/Day Years Used Date Smoking Tobacco: Never Assessed Comments Unknown Sex and Gender Information Value Date Recorded Sex Assigned at Not on file Legal Sex Female 3:45 AM SEWING SUPERVISOR Gender Identity Not on file Sexual Orientation Not on file documented as of this encounter Plan of Treatment Not on file documented as of this encounter Visit Diagnoses Diagnosis Irritable bowel syndrome- Primary documented in this encounter
--- OUTSIDE RECORDS SUMMARY | 2025-08-02 12:27 | XMS_ITS | Encounter Summary ---
Author Organization [facility] Address [address] [place] [address] Care Team Providers Care Radio Dispatcher Name Role Phone Unavailable Primary Care Provider Unavailabl e Encounter Details Date Type Department Care Team (Latest Contact Info) Description 07/25/2002 Outpatient Historical [facility] [place] [address] [phone] Marilia Ely MD IRRITABLE COLON (Primary Dx) Social History Tobacco Use Types Packs/Day Years Used Date Smoking Tobacco: Never Assessed Comments Unknown Sex and Gender Information Value Date Recorded Sex Assigned at Not on file Legal Sex Female 3:45 AM HUB LEAD Gender Identity Not on file Sexual Orientation Not on file documented as of this encounter Plan of Treatment Not on file documented as of this encounter Visit Diagnoses Diagnosis Irritable bowel syndrome- Primary documented in this encounter
--- OUTSIDE RECORDS SUMMARY | 2025-08-02 12:27 | XMS_ITS | Clinical Summary ---
Author Organization [facility] Address [address] Andrea: Epic Prelude ADT ARIANA LOPEZ [address] Care Team Providers Care Double Reamer Operator Name Role Phone Unavailable Primary Care Provider Unavailabl e Social History Tobacco Use Types Packs/Day Years Used Date Smoking Tobacco: Never Assessed Comments Unknown Sex and Gender Information Value Date Recorded Sex Assigned at Not on file Legal Sex Female 3:45 AM PROGRAMMER OPERATOR NUMERICAL CONTROL Gender Identity Not on file Sexual Orientation Not on file Plan of Treatment Health Maintenance Due Date Last Done Comments DTAP/TDAP/TD VACCINES (1 - Tdap) 1978 BREAST CANCER SCREENING 1999 COLORECTAL SCREENING 2004 Colorectal Cancer Screening 2004 FIT-DNA Q 3 years 2004 FIT/FOBT Q 1 year 2004 Flex Sig/CT Colonography Q 5 years 2004 PNEUMOCOCCAL VACCINE 50+ YEARS (1 of 1 - PCV) 04/28/20 09 ZOSTER VACCINE (1 of 2) 2009 OSTEOPOROSIS SCREENING 2024 INFLUENZA VACCINE (#1) 2025 RSV VACCINE (60+ or ) (1 - 1-dose 75+ series) 2034
--- NOTE | 2025-08-02 14:27 | P.CONIM_ITS ---
Providers/Reason For Consult 2 Consulting Physician/Specialty*: Dwayne Avila, DO Orthopedic surgery Reason for Consult*: Status post right total knee arthroplasty Requesting Physician: Hospitalist Attending Physician: April Hammond, COIL SHAPER, KNITTING SUPERVISOR Primary Care Provider: Lisette Sheehan, MADDY-C History of Present Illness History of Present Illness Bela Jennings is a 65 year old female who was admitted by hospitalist secondary to having a syncopal episode. At this point in time she is getting worked up appropriately per the hospitalist team given she is roughly 6 to 7 weeks out from a total knee arthroplasty orthopedics was consulted for evaluation of her knee. We do have a scheduled appointment with her scheduled up in the next week. Patient was seen evaluated by myself she states she has been trying to use her CPM but has not coordinated very well with this was reeducated by therapy during this visit on how to appropriately use this she is close she is behind on some of her range of motion. Her calves are soft and nontender. H&P from admitting hospitalist provider listed below: Bela Jennings is a 65 year old female with prior medical history of HTN, HLD, FIGUEROA on CPAP, IBS, MRSA, gastric restrictive surgery, cholecystectomy, hysterectomy, hypothyroidism, osteoarthritis, and diverticulitis presenting with complaints of syncope. Today, patient had an office visit with her primary care physician, Dr. Sheehan when in a seated position she became dizzy, lightheaded, and experienced an episode of syncope. Vitals were checked and her heart rate had dropped into the 30s. Patient was partially aware when staff ran a code for approximately 15 minutes including use of AED. EMS was called and she was transported to [facility] ED for further assessment. and Daughter at bedside. Heart rate was 50s?60s in the ED. Of note, patient reports that she had a syncopal episode a day after her procedure and also passed out for approximately 1 week after as well. Her blood pressure in these episodes has been found to be as low as 69 systolic. Patient was supposed to have CPM therapy today and will reschedule. She currently has right leg swelling and pain. Vitals WNL with exception of HR 59 upon arrival. CBC WNL. Chemistry; AST, ALT WNL. Urine cloudy. CXR; stable chest without acute abnormality. Bitlateral leg venous doppler pending.Coag panel, d-dimer pending. Will admit to hospital service for further evaluation and treatment and observation status. Review of Systems 2 General: Reports: 10 or more systems reviewed and unremarkable except in HPI and below Medications/Allergies Home Medications ?Medication ?Instructions ?Recorded ?Confirmed ?Last Taken ?Type potassium gluconate 600 mg (99 mg) 600 mg PO BEDTIME 1 08/03/25 07/31/25 21:00 History tablet CPAP machine and supplies #1 ea 04/03/25 08/03/25 Unkn own Rx oxycodone 5 mg tablet 5 mg PO Q4H PRN Pain (Scale Score 06/26/25 08/03/25 07/31/25 History 4-6) cetirizine 10 mg tablet (Zyrtec) 10 mg PO DAILY #90 ta bs 08/01/25 08/03/25 07/31/25 Rx cholecalciferol (vitamin D3) 1,250 50,000 unit PO .jaimee ry 14 days #2 08/01/25 08/03/25 Unknown Rx mcg (50,000 unit) capsule caps ibandronate 150 mg tablet 150 mg PO .monthly #3 tabs 1 10/01/24 08/03/25 Unknown Rx levothyroxine 50 mcg tablet See Rx Instructions PO .CO MPLEX 08/01/25 08/03/25 08/01/25 Rx #100 tabs linaclotide 145 mcg capsule 145 mcg PO QAM #90 caps 08/03/25 07/31/25 Rx (Linzess) magnesium oxide 400 mg (241.3 mg 400 mg PO DAILY 08/0108/03/25 07/31/25 History magnesium) tablet (MagOx) pravastatin 20 mg tablet 20 mg PO BEDTIME #90 tabs 08/03/25 07/31/25 21:00 Rx valsartan 40 mg tablet (Diovan) 40 mg PO DAILY #30 tab s 08/03/25 08/03/25 Unknown Rx duloxetine 60 mg capsule,delayed 60 mg PO BID #60 caps 08/04/25 Unknown Rx release Allergies Allergy/AdvReac Type Severity Reaction Status Date / Time prednisone Allergy Intermediate ADR-Gastrointestinal Verified 08/03/25 14:41 Upset NSAIDS (Non-Steroidal Allergy Mild ADR-Gastrointestinal Verified 08/03/25 14:41 Anti-Inflamma Upset Sulfa (Sulfonamide AdvReac Intermediate anxiety Verified 08/03/25 14:41 Antibiotics) Current Medications Generic Name Dose Route Start Last Admin Trade Name Nishi PRN Reason Stop Dose Admin Acetaminophen 650 mg 08/01/25 13:37 08/01/25 23:13 Acetaminophen 325 Mg Tablet PO 650 mg Q6H PRN Administration Mild/Mod Pain Or Temp >/= 101 Sodium Chloride 1,000 mls @ 100 mls/hr 08/01/25 13:36 08/02/25 07:05 Sodium Chloride 0.9% IV 0 mls/hr .Q10H JEY Infusion Pantoprazole Sodium 40 mg 08/01/25 13:45 08/01/25 14:18 Pantoprazole 40 Mg Sdv IVP 40 mg Q24H JEY Administration PFSH Acute 2 PFSH: Medical History Irritable bowel syndrome with constipation and diarrhea FIGUEROA on CPAP Vitamin D deficiency Metabolic syndrome Obesity (BMI 30-39.9) Age related osteoporosis Anxiety Hx of diverticulitis of colon Hx MRSA infection Chronic osteoarthritis Chronic constipation Obstructive sleep apnea cpap Mixed hyperlipidemia Gastric reflux Seasonal allergic conjunctivitis Adult onset hypothyroidism Essential (primary) hypertension Surgical History History of left knee replacement August 18, 2022 History of gastric restrictive surgery January 26, 2023 in [place] History of colonoscopy (12/11/21) History of bilateral salpingo-oophorectomy (BSO) Hx of hysterectomy (~1994) History of kidney surgery (~1993) Hx of tonsillectomy Hx of cholecystectomy (~1997) History of esophagogastroduodenoscopy (EGD) (12/11/21) Family History Other Cancer Diabetes Hypertension Denies family history of Dementia Stroke Social History Smoking and tobacco/nicotine status: former use of tobacco/nicotine Second hand smoke exposure: No Alcohol intake: never Substance/Drug Use: never Adopted: No Caregiver/support person: No Lives independently: Yes Household members: spouse Housing: House Marital status: Number of children: 2 service: No Current occupational status: retired Do you think of yourself as: Straight/Heterosexual Current gender identity: Female Vitals/I&O/Wt Last Vital Signs Temp 97.7 F 08/02/25 08:00 Pulse 92 08/02/25 12:00 Resp 15 08/02/25 12:00 BP 151/77 08/02/25 12:00 Pulse Ox 97 08/02/25 12:00 O2 Del Method Room Air 08/01/25 16:00 08/01/25 08/02/25 08/02/25 22:59 06:59 14:59 Intake Total 240 / 240 1000 / 1240 1283.333 / 1283.333 Balance 240 / 240 1000 / 1240 1283.333 / 1283.333 Weight last 48 hrs Weight 184 lb 1.376 oz Weight 179 lb 10.828 oz Weight 174 lb Physical Exam 2 Narrative: Right knee examination: Incision is all well-healed there is no signs of infection no open wounds or drainage no erythema minimal postoperative swelling appreciated. Normal mild postoperative tenderness to palpation to the knee. Compartments are soft compressible,'s calf soft and nontender. Sensations intact to light touch distally. Distal pulses are palpable. Patient is able to wiggle toes as well as plantarflex and dorsiflex ankle. Range of motion today roughly lying in bed is 0 to 50 degrees Urinary Catheter Management: Ribeiro: Cath Placed During This Visit: yes, but has since been removed by the nurse Reason for Continuing Indwelling Catheter: Other Urinary Catheter Date of Insertion: 06/15/25 Urinary Catheter Time of Insertion: 14:40 Date Urinary Catheter Removed: 06/16/25 Time Urinary Catheter Discontinued: 08:00 Data 08/02/25 03:50 08/02/25 03:50 Other Labs: Patient: Bela Jennings Unit #: [id number] : 1960 Age/Sex: 65 / F ADM Date: 08/01/25 Loc: [facility] Room/Bed: [facility] Attending Dr: April RUIZ, KNITTING SUPERVISOR-C Ordering Provider/Ordering MD: April Hammond NP-C Date of Service: 08/01/25 Procedure(s): [place] [id number] Accession Number(s): [id number] Report Number: [id number] Bela Jennings Age: 65 Gender: F : 1960 Exam Date: 08/01/2025 16:15 Ordering Phys: April Hammond KNITTING SUPERVISOR Technologist: Exam Location: [facility] [place] Indication: swelling HISTORY: Lower extremity swelling. Pt had right knee surgery in June PROCEDURES: The venous duplex Doppler examination of both lower extremities was performed in the standard fashion.serial compression, augmentation maneuvers, and spectral Doppler flow evaluation were performed. FINDINGS: No evidence of DVT seen in any vessel visualized at this time. CONCLUSIONS No evidence of right lower extremity DVT. No evidence of left lower extremity DVT. A&P Assessment and plan 1. Status post total right knee replacement using cement: Plan: Labs reviewed Ultrasound reviewed negative for DVT Continue with PT/OT Work aggressively on range of motion utilize CPM Ice as needed for pain and swelling Pain medication Stable for discharge orthopedic standpoint Follow-up in 1 week at scheduled appointment Patient at this point has some significant postoperative stiffness and arthrofibrosis worry about her at this point in time we will see how she does when she gets out of the hospital working aggressively over the next week on range of motion we will see her at her office visit next week and potentially she may need a manipulation under anesthesia we talked about this in detail and patient understands and agrees with current plan. All questions answered. She stable for discharge from orthopedic standpoint at this point in time she is already completed and appropriate discharge DVT prophylaxis for the first 2 weeks she is right now roughly 6 weeks out from her total knee arthroplasty and at this point in time no indication for her starting any anticoagulant lasting necessary by the hospitalist patient understands agrees with current plan. All questions answered. Follow-up in 1 week. PDMP PDMP Reviewed: Not Reviewed Coding Level of Care Code Acute Code for Chg Fwd Diagnoses Status post total right knee replacement using cement Z96.651 Time Spent (min) 35
--- NOTE | 2025-08-02 14:31 | PM.DCS ---
Discharge Providers Date of Admission: 08/01/25 13:27 Date of Discharge: August 02, 2025 Attending Provider at Admission: Himanshu Clarke MD Attending Provider at Discharge: April Hammond, SCIENCE AND OPERATIONS OFFICER, TERRAZZO FINISHER Consults: Cardiology Dr. Murillo and Ortho Dr. Avila Primary Care Provider: MARIE Rivas Diagnoses at Discharge Discharge Diagnosis 1. Syncope, unspecified syncope type: Details from hospital stay: No known history of CAD Patient had syncopal episode at PCP office today, prior instances of syncope/near-syncpoe 50 minutes of compressions and AED used, patient has memory of some of this Fall risk precautions Serial troponins, Orthostatic vitals, EKG, Telemetry Cardiology consulted, recommendations appreciated: Patient had a stress test, myocardial perfusion study Will follow-up with cardiology in the outpatient setting Patient is to clear discharge from a cardiac standpoint with Holter monitor 2. Pain and swelling of right lower leg: Details from hospital stay: BLE venous Doppler was negative for active clots D-dimer was elevated, coag WNL Pain management Orthopedics consult signed off, cleared for discharge 3. Status post total right knee replacement using cement: Details from hospital stay: Procedure 06/12/2025 Patient completed home PT, now in outpatient PT/OT Fall risk precautions Follow-up with Ortho as planned Reason for Visit Reason for Visit: syncope Hospital Course Hospital Course History of Present Illness Bela Jennings is a 65 year old female with prior medical history of HTN, HLD, FIGUEROA on CPAP, IBS, MRSA, gastric restrictive surgery, cholecystectomy, hysterectomy, hypothyroidism, osteoarthritis, and diverticulitis presenting with complaints of syncope. Today, patient had an office visit with her primary care physician, Dr. Sheehan when in a seated position she became dizzy, lightheaded, and experienced an episode of syncope. Vitals were checked and her heart rate had dropped into the 30s. Patient was partially aware when staff ran a code for approximately 15 minutes including use of AED. EMS was called and she was transported to [facility] ED for further assessment. and Daughter at bedside. Heart rate was 50s?60s in the ED. Of note, patient reports that she had a syncopal episode a day after her procedure and also passed out for approximately 1 week after as well. Her blood pressure in these episodes has been found to be as low as 69 systolic. Patient was supposed to have CPM therapy today and will reschedule. She currently has right leg swelling and pain. Vitals WNL with exception of HR 59 upon arrival. CBC WNL. Chemistry; AST, ALT WNL. Urine cloudy. CXR; stable chest without acute abnormality. Bitlateral leg venous doppler pending.Coag panel, d-dimer pending. Patient was admitted to hospital service for further evaluation and treatment and observation status. 08/02/25: Stress test negative. Cardiology and Ortho consult both signed off?patient cleared for discharge. Will follow-up with cardiology and Ortho outpatient. Patient to discharge with Holter monitor studies for 1 month. Physical Exam Narrative: GENERAL: The patient is alert and oriented times three. Not in any acute distress. HEENT: No significant pallor, normocephalic NECK: Trachea appears to be central. No masses noted. No JVD RESPIRATORY: Normal chest, normal respirations HEART: Regular rate, rhythm ABDOMEN: Soft, nontender : Deferred. RECTAL: Deferred. LYMPHATIC: No lymphadenopathy noted in the neck. EXTREMITIES: No edema or cyanosis. No clubbing. MUSCULOSKELETAL: Mild diffuse swelling of the right knee, postoperative SKIN: There are no significant rashes or ecchymosis NEUROPSYCHIATRIC: The patient is alert and oriented x3 Urinary Catheter Management: Ribeiro: Cath Placed During This Visit: yes, but has since been removed by the nurse Reason for Continuing Indwelling Catheter: Other Urinary Catheter Date of Insertion: 06/15/25 Urinary Catheter Time of Insertion: 14:40 Date Urinary Catheter Removed: 06/16/25 Time Urinary Catheter Discontinued: 08:00 Discharge Data Studies Completed and Pending Completed Studies During Hospitalization Category Date Time Status Sestamibi Stress Test Request Routine Exams 08/01/25 19:47 Draft XR chest 1V portable [id number] Stat Exams 08/01/25 10:55 Completed NM alexia perf SPECT r/s* [id number] Routine Nuc Med 08/02/25 19:51 [place] [id number] Stat Ultrasound 08/01/25 14:57 Completed Holter monitor studies Radiology Impressions Chest X-Ray 08/01/25 10:55 IMPRESSION: Stable chest without acute abnormality. Laboratory Results WBC 5.89 10^3/uL (3.29-11.43) 08/02/25 03:50 RBC 4.16 10^6/uL (3.85-5.65) 08/02/25 03:50 Hgb 11.30 g/dL (11.27-16.99) 08/02/25 03:50 Hct 37.9 % (36-47) 08/02/25 03:50 MCV 91.1 fl (85-98) 08/02/25 03:50 MCH 27.2 pg (27-33) 08/02/25 03:50 MCHC 29.8 g/dL (30-55) L 08/02/25 03:50 RDW 14.6 % (12.1-15.1) 08/02/25 03:50 Plt Count 311 10^3/cmm (157-399) 08/02/25 03:50 MPV 9.8 fL (7.4-10.4) 08/02/25 03:50 Neut % (Auto) 45.3 % 08/02/25 03:50 Lymph % (Auto) 41.3 % 08/02/25 03:50 [place] % (Auto) 8.1 % 08/02/25 03:50 Eos % (Auto) 4.2 % 08/02/25 03:50 Baso % (Auto) 0.8 % 08/02/25 03:50 Neut # (Auto) 2.66 10^3/uL (1.8-7.7) 08/02/25 03:50 Lymph # (Auto) 2.4 10^3/uL (0.8-4.8) 08/02/25 03:50 [place] # (Auto) 0.5 10^3/uL (0.2-0.9) 08/02/25 03:50 Eos # (Auto) 0.3 10^3/uL (0.0-0.8) 08/02/25 03:50 Baso # (Auto) 0.1 10^3/uL (0.0-0.1) 08/02/25 03:50 Nucleated RBC % (auto) 0 % 08/02/25 03:50 Nucleated RBCs # 0.0 /100WBC 08/02/25 03:50 PT 13.40 SECONDS (12.1-14.9) 08/01/25 16:48 INR 0.96 (0.8-1.2) 08/01/25 16:48 APTT 28.3 SECONDS (23.9-36.7) 08/01/25 16:48 Fibrinogen 356 mg/dL (174-498) 08/01/25 16:48 D-Dimer 2.08 ug/mLFEU (0-0.59) H 08/01/25 16:48 Sodium 141 mmol/L (136-145) 08/02/25 03:50 Potassium 3.8 mmol/L (3.5-5.1) 08/02/25 03:50 Chloride 105 mmol/L (98-107) 08/02/25 03:50 Carbon Dioxide 29 mmol/L (22-29) 08/02/25 03:50 Anion Gap 10.8 (5-19) 08/02/25 03:50 BUN 16 mg/dL (8-23) 08/02/25 03:50 Creatinine 0.4 mg/dL (0.5-0.9) L 08/02/25 03:50 GFR Calculation 159.7 mL/min (90-130) H 08/02/25 03:50 Glucose 94 mg/dL (65-115) 08/02/25 03:50 Calculated Osmolality 293 mOsm/kg (285-295) 08/02/25 03:50 Calcium 8.5 mg/dL (8.5-10.5) 08/02/25 03:50 Total Bilirubin 0.2 mg/dL (0.15-1.2) 08/01/25 10:20 AST 95 U/L (0-32) H 08/01/25 10:20 ALT 96 U/L (0-33) H 08/01/25 10:20 Alkaline Phosphatase 187 U/L (35-105) H 08/01/25 10:20 Troponin T Baseline 8 ng/L (0-10) 08/01/25 10:20 Troponin T 120 Minute 6.98 ng/L (0-10) 08/01/25 12:17 Delta Troponin T -1.02 ABS# (0-10) L 08/01/25 12:17 Troponin T Hi Sens 6Hr 7.43 ng/L (0-10) 08/01/25 16:48 Troponin T Hi Sens 6Hr Delta -0.57 ng/L (0-12) L 08/01/25 16:48 Total Protein 6.2 g/dL (6.6-8.7) L 08/01/25 10:20 Albumin 4.0 g/dL (3.5-5.2) 08/01/25 10:20 Globulin 2.2 g/dL (1.3-4.6) 08/01/25 10:20 TSH 1.69 uIU/mL (0.27-4.20) 08/01/25 16:48 Urine Color Yellow (Yellow) 08/01/25 10:40 Urine Appearance Cloudy (CLEAR) A 08/01/25 10:40 Urine pH (5-7) 08/01/25 10:40 Ur Specific [place] Not Reportable 08/01/25 10:40 Urine Protein Not Reportable 08/01/25 10:40 Urine Glucose (UA) Not Reportable 08/01/25 10:40 Urine Ketones Not Reportable 08/01/25 10:40 Urine Blood Not Reportable 08/01/25 10:40 Urine Nitrate Not Reportable 08/01/25 10:40 Urine Bilirubin Not Reportable 08/01/25 10:40 Urine Urobilinogen Not Reportable 08/01/25 10:40 Ur Leukocyte Esterase Not Reportable 08/01/25 10:40 Urine RBC None /hpf (0-2) 08/01/25 10:40 Urine WBC None /hpf (0-5) 08/01/25 10:40 Ur Squamous Epith Cells 0-4 /hpf (0-5) H 08/01/25 10:40 Triple Phos Crystals 5-10 /hpf H 08/01/25 10:40 Amorphous Sediment 1+ /hpf 08/01/25 10:40 Urine Bacteria Trace /hpf (NONE) 08/01/25 10:40 Hyaline Casts 0-4 /lpf H 08/01/25 10:40 Urine Mucus Trace /hpf 08/01/25 10:40 Vitals Last Vital Signs Temp 97.7 F 08/02/25 08:00 Pulse 92 08/02/25 12:00 Resp 15 08/02/25 12:00 BP 151/77 08/02/25 12:00 Pulse Ox 97 08/02/25 12:00 O2 Del Method Room Air 08/01/25 16:00 Discharge Plan Discharge Patient Disposition: Home Condition: Stable Prescriptions: Continued potassium gluconate 600 mg (99 mg) tablet 600 mg PO BEDTIME (DME) CPAP machine and supplies See Rx Instructions .ROUTE .MEDSUPPLY Qty: 1 0RF Rx Instructions: As directed oxycodone 5 mg tablet 5 mg PO Q4H PRN (Reason: Pain (Scale Score 4-6)) cetirizine [Zyrtec] 10 mg tablet 10 mg PO DAILY Qty: 90 1RF cholecalciferol (vitamin D3) 1,250 mcg (50,000 unit) capsule 50,000 unit PO .every 14 days Qty: 2 5RF desvenlafaxine succinate [Pristiq] 100 mg tablet extended release 24 hr 100 mg PO DAILY Qty: 90 1RF levothyroxine 50 mcg tablet See Rx Instructions PO .COMPLEX Qty: 100 1RF Rx Instructions: 1 tablet 6 days and 2 tablets 1 day orally; ibandronate 150 mg tablet 150 mg PO .monthly Qty: 3 1RF Linzess 145 mcg capsule 145 mcg PO QAM Qty: 90 1RF pravastatin 20 mg tablet 20 mg PO BEDTIME Qty: 90 1RF magnesium oxide [MagOx] 400 mg (241.3 mg magnesium) Tablet 400 mg PO DAILY Full Time OK for DC: Orthopedics Other Ambulatory Orders: MCT/Event Monitor 30 Days (Routine) Timeframe: [id number] Facility: [facility] - Location: Radiology Ordered By: Boston Murillo Referrals: Lisette Sheehan FNP-C [Primary Care Provider, Family Practice] - 08/17/25 1:40 pm Winnie Duke FNP [Nurse Practitioner, Cardiology] - 08/23/25 3:30 pm Dwayne Avila DO [Physician, Orthopedics] - 08/09/25 2:15 pm Patient Instructions: Syncope, Chronic Hypertension (DC), Bradycardia (DC), Opioid Safety, Patient Portal & Titi Instructions Activity Restrictions/Additional Instructions: Orthopedic discharge instructions: Patient okay to weight-bear as tolerated to the right lower extremity continue to work aggressively on range of motion Utilize CPM Pain medication as needed Follow-up in the orthopedic office at scheduled appointment next week with Dr. Avila Contact the office for any questions or concerns Discharge Attestations Time Spent in Discharge Care*: greater than 30 min Quality Metrics Clinical Quality Measures [ No reported AMI, CVA or VTE this stay] Coding Level of Care Code 34743 Other Coding Information Procedural care (documented in this note) Diagnoses Syncope, unspecified syncope type R55 Syncope type: unspecified Pain and swelling of right lower leg M79.661; M79.89 Status post total right knee replacement using cement Z96.651 Time Spent (min) 60
--- NOTE | 2025-08-02 16:13 | PC.NURSE ---
Patient discharged to home. Instruction provided regarding follow up information and cardiac event monitor. No new medications. Patient verbalized complete understanding. Event monitor placed prior to discharge. Patient taken by wheelchair to private vehicle with spouse at side. Patient denies pain or needs. No distress observed.
[2025-08-02 16:16] VITALS: BP 151/77; PULSE 73; RESP 16; O2SAT 97
--- NOTE | 2025-08-02 19:51 | NMCV_ITS ---
NM alexia perf SPECT r/s* [id number] Bela Jennings Age: 65 Gender: F : 1960 Exam Date: 08/02/2025 07:05 Ordering Phys: Boston Murillo MD ([email or web address]) Technologist: DAKSHA Dave Exam [facility] Indications: CP STRESS TEST Please see separate stress test report in [facility] for full findings IMAGE PROTOCOL Rest/Stress 1 Lexiscan Day Radiopharmaceutical Dose (mCi) Administration Site Administered by Rest: Tc-99m 10.7 IV Yaritza Brice APPLE SORTER Sestamibi Stress:Tc-99m 32.5 IV Yaritza Brice, APPLE SORTER Sestamibi Rest: 02-Aug-2025 60 Discovery 630 Stress: 02-Aug-2025 30 Discovery 630 0.4mg Lexiscan. Images obtained in supine and prone position. SPECT RESULTS Technical Quality: Good Raw Data Analysis: Normal Image Corrections: No attenuation or motion correction applied Summed Stress Score: 0 Summed Rest Score: 1 Summed Difference Score: 0 PERFUSION FINDINGS Fairly uniform myocardial tracer uptake with no significant perfusion abnormalities FUNCTIONAL RESULTS (calculated via Gated SPECT) Stress Image LV EF (%): 76 Stress EDV (mL):90 TID: 0.98 Stress ESV (mL):22 FUNCTIONAL FINDINGS: Segmental wall motion analysis revealing no gross wall motion abnormalities IMPRESSIONS 1. Myocardial perfusion imaging revealing fairly uniform myocardial tracer uptake with no significant perfusion abnormalities 2. Normal LV ejection fraction of 76%. 3. LV wall motion analysis revealing no gross wall motion abnormalities. 4. Normal LV volume Low probability for coronary ischemia, based on the above findings Dr Boston Murillo MD FACC (Electronically Signed) Final Date: 02 August 2025 10:55 S
== END 2025-08-02 16:17 | disposition home or self-care (01) ==
LOC: ER 12:38 → CSU 14:02
PROVIDERS: Internal Medicine Cardiovascular Disease; Admitting Provider Family Medicine; Emergency Provider Family Medicine; PCP Nurse Practitioner; Visit Provider Clinical Nurse Specialist Acute Care
DX: R55 Syncope and collapse (principal); R00.1 Bradycardia, unspecified; M79.661 Pain in right lower leg; M79.89 Other specified soft tissue disorders; Z96.651 Presence of right artificial knee joint; Z79.891 Long term (current) use of opiate analgesic; I10 Essential (primary) hypertension; E78.5 Hyperlipidemia, unspecified; G47.33 Obstructive sleep apnea (adult) (pediatric); Z99.89 Dependence on other enabling machines and devices; Z86.14 Personal history of Methicillin resistant Staphylococcus aureus infection; K21.9 Gastro-esophageal reflux disease without esophagitis; Z87.891 Personal history of nicotine dependence; E03.9 Hypothyroidism, unspecified
CPT/HCPCS: 36415; 71045; 78452; 80048; 80053; 81001; 84443; 84484; 85025; 85049; 85378; 85384; 85610; 85730; 93005; 93970; 96361; 96374; 96375; 97110; 97161; 97165; 97530; 99285; A9500; G0378; J2470; J2785; J7030; J9999

== ENCOUNTER 2025-08-07 13:48 | Outpatient (CLI) | payer MEDICARE, OTHER, SELFPAY ==
--- NOTE | 2025-08-07 14:00 | MM_ITS ---
WS: [id number] BILATERAL 3D TOMOSYNTHESIS DIGITAL SCREENING MAMMOGRAPHY WITH CAD CLINICAL INFORMATION: Z12.31 - Encounter for screening mammogram for malignant ... HISTORY: Screening mammogram. No current complaints. COMPARISON: 2023 TECHNIQUE: Bilateral CC and MLO views. FINDINGS: Scattered fibroglandular densities bilaterally. No suspicious focal mass, asymmetry, calcifications, or architectural distortion. No evidence of malignancy. Incidental punctate calcifications LEFT breast. MM/MM [facility] tomosynthesis [id number] IMPRESSION: DENSITY: There are scattered areas of fibroglandular density. BI-RADS: 2 - Benign. FOLLOW UP: 1 Year Follow-up Recommend return to annual screening mammography.
--- NOTE | 2025-08-07 14:30 | XR_ITS ---
WS: [id number] SCREENING DEXA SCAN [employer] CLINICAL INFORMATION: M81.0 - Age-related osteoporosis without current patholog... COMPARISON: 2019. FINDINGS: The L1-L4 bone mineral density measures 0.957 g/cm2. This corresponds to a T score score of -1.9 and Z score of -0.7. Left femoral neck bone mineral density measures 0.754 g/cm2. This corresponds to a T score of -2.0 and Z score of -1.1. Right femoral neck bone mineral density measures 0.729 g/cm2. This corresponds to a T score -2.2of and Z score of -1.3. Mean femoral neck bone mineral density measures 0.741 g/cm2. This corresponds to a T score of -2.1 and Z score of -1.2. XR/XR DEXA axial skeleton* 99309 IMPRESSION: Osteopenia lumbar spine. Osteopenia femoral necks. Patient's FRAX calculated 10 year probability for major osteoporotic fracture i s 12.3% and osteoporotic hip fracture is 2.4%.
== END 2025-08-07 13:49 | disposition home or self-care (01) ==
LOC: RAD 13:50
PROVIDERS: PCP Nurse Practitioner; Visit Provider Nurse Practitioner
DX: Z12.31 Encounter for screening mammogram for malignant neoplasm of breast (principal); Z13.820 Encounter for screening for osteoporosis; M81.0 Age-related osteoporosis without current pathological fracture; M85.89 Other specified disorders of bone density and structure, multiple sites; R92.323 Mammographic fibroglandular density, bilateral breasts; R92.1 Mammographic calcification found on diagnostic imaging of breast
CPT/HCPCS: 77063; 77067; 77080

== ENCOUNTER 2025-08-09 09:58 | Outpatient (RCR) | payer MEDICARE, OTHER, SELFPAY | END 2025-08-13 23:59 | disposition home or self-care (01) | LOC: APT 09:58 | PROVIDERS: PCP Nurse Practitioner; Visit Provider Student in an Organized Health Care Education/Training Program | DX: Z47.1 Aftercare following joint replacement surgery (principal); Z96.651 Presence of right artificial knee joint; M24.661 Ankylosis, right knee | CPT/HCPCS: 97110; 97161; 99214 ==

== ENCOUNTER → 2025-08-09 14:08 | Outpatient (BNVA) | payer MEDICARE, OTHER, SELFPAY | PROVIDERS: PCP Nurse Practitioner; Visit Provider Student in an Organized Health Care Education/Training Program | DX: M24.661 Ankylosis, right knee (principal); Z96.651 Presence of right artificial knee joint | CPT/HCPCS: 73560; 73565 ==

== ENCOUNTER → 2025-08-17 14:14 | Outpatient (BNVA) | payer MEDICARE, OTHER, SELFPAY | PROVIDERS: PCP Nurse Practitioner; Visit Provider Nurse Practitioner | DX: M25.50 Pain in unspecified joint (principal) | CPT/HCPCS: 80053; 85651; 86140; 86431 ==

== ENCOUNTER 2025-08-18 06:48 | Day surgery (SDC) | payer MEDICARE, OTHER, SELFPAY ==
[2025-08-18] VITALS (15 sets, daily range): BP systolic 108–171; BP diastolic 63–107; PULSE 80–100; RESP 14–18; TEMP 36.1–36.8; O2SAT 92–99; BMI 31.8
--- NOTE | 2025-08-18 06:20 | ANES.PREANE2 ---
Pre-Anesthetic Assessment Height/Weight: Height 5 ft 2 in Preop Diagnosis: Limited mobility of surgical extremity Operation Date: 08/18/25 08:00 Proposed Procedures p knee manipulation under anesthesia(Right) - Dwayne Avila, DO Was Beta Ariel taken within 24 hours: N/A Was Clonidine taken within 24 hours: N/A Social No alcohol and No tobacco Exam alert, oriented x 3, clear to auscultation bilaterally and regular rate & rhythm Airway Submandibular: within normal limits Cervical ROM: within normal limits Mallampati: Class II Dentition: false Anesthetic Plan ASA status: 3 Anesthesia: MAC Other: Patient was recently hospitalized in the middle of July for a syncopal episode with bradycardia. Myocardial perfusion study performed at that time showing low probability of ischemia but cardiology noted they recommend a cardiac event monitor because she had an episode where her heart rate went into the 30s. Of note, patient states that she had a syncopal episode today after her procedure on 06/15/2025. Cardiac stress test negative. Patient has a current cardiac event monitor in place History of hypertension on valsartan Hypothyroidism on Synthroid FIGUEROA on CPAP GERD, controlled with Pepcid Gastric sleeve history over 2 years ago. Patient has lost 70 pounds since then Labs reviewed from 05/24/2025 and acceptable for procedure Extensive conversation had with patient that she is at a mildly higher risk for a cardiac event IntraOp. However patient does need this procedure performed due to not being able to ambulate well. Patient understands risk and would like to proceed Plan for MAC anesthesia Medications/Allergies Home Medications ?Medication ?Instructions ?Recorded ?Confirmed ?Last Taken ?Type potassium gluconate 600 mg (99 mg) 600 mg PO BEDTIME 06/26/21 08/18/25 08/17/25 History tablet CPAP machine and supplies #1 ea 04/03/25 08/17/25 08/17/25 Rx oxycodone 5 mg tablet 5 mg PO Q4H PRN Pain (Scale Score 06/26/25 08/18/25 07/31/25 History 4-6) cetirizine 10 mg tablet (Zyrtec) 10 mg PO DAILY #90 tabs 08/01/25 08/18/25 08/17/25 Rx cholecalciferol (vitamin D3) 1,250 50,000 unit PO .every 14 days #2 08/01/25 08/18/25 08/17/25 Rx mcg (50,000 unit) capsule caps ibandronate 150 mg tablet 150 mg PO .monthly #3 tabs 08/01/25 08/18/25 Unknown Rx levothyroxine 50 mcg tablet See Rx Instructions PO .COMPLEX 08/01/25 08/18/25 08/17/25 Rx #100 tabs linaclotide 145 mcg capsule 145 mcg PO QAM #90 caps 08/01/25 08/18/25 08/17/25 Rx (Linzess) magnesium oxide 400 mg (241.3 mg 400 mg PO DAILY 08/01/25 08/18/25 08/17/25 History magnesium) tablet (MagOx) pravastatin 20 mg tablet 20 mg PO BEDTIME #90 tabs 08/01/25 08/18/25 08/17/25 Rx calcium 500 mg-vitamin D3 100 1 tab PO DAILY 08/17/25 08/18/25 08/17/25 History unit-vitamin K 40 mcg chewable tablet duloxetine 60 mg capsule,delayed 60 mg PO BID #180 caps 08/17/25 08/18/25 08/17/25 Rx release multivitamin 1 tab PO DAILY 08/17/25 08/18/25 08/17/25 History valsartan 80 mg tablet 80 mg PO DAILY #30 tabs 08/17/25 08/18/25 08/17/25 Rx Allergies Allergy/AdvReac Type Severity Reaction Status Date / Time prednisone Allergy Intermediate ADR-Gastrointestinal Verified 08/18/25 06:54 Upset NSAIDS (Non-Steroidal Allergy Mild ADR-Gastrointestinal Verified 08/18/25 06:54 Anti-Inflamma Upset Sulfa (Sulfonamide AdvReac Intermediate anxiety Verified 08/18/25 06:54 Antibiotics) [facility] Anesthesia Medical History Irritable bowel syndrome with constipation and diarrhea FIGUEROA on CPAP Vitamin D deficiency Metabolic syndrome Obesity (BMI 30-39.9) Age related osteoporosis Anxiety Hx of diverticulitis of colon Hx MRSA infection Chronic osteoarthritis Chronic constipation Obstructive sleep apnea cpap Mixed hyperlipidemia Gastric reflux Seasonal allergic conjunctivitis Adult onset hypothyroidism Essential (primary) hypertension Surgical History History of left knee replacement August 18, 2022 History of gastric restrictive surgery January 26, 2023 in [place] History of colonoscopy (12/11/21) History of bilateral salpingo-oophorectomy (BSO) Hx of hysterectomy (~1994) History of kidney surgery (~1993) Hx of tonsillectomy Hx of cholecystectomy (~1997) History of esophagogastroduodenoscopy (EGD) (12/11/21) Family History Other Cancer Diabetes Hypertension Denies family history of Dementia Stroke Social History Smoking and tobacco/nicotine status: former use of tobacco/nicotine Second hand smoke exposure: No Alcohol intake: never Substance/Drug Use: never Adopted: No Caregiver/support person: No Lives independently: Yes Household members: spouse Housing: House Marital status: Number of children: 2 service: No Current occupational status: retired Do you think of yourself as: Straight/Heterosexual Current gender identity: Female Data Anesthesia Cardiac Studies: Sestamibi Stress Test (Cardiology) 08/01/25 Stress Echocardiogram 12/03/21
--- NOTE | 2025-08-18 07:02 | W.PM.OPSUD ---
Surgery/Procedure H&P Update DATE OF PROCEDURE: August 18, 2025 DATE H&P PERFORMED: 08/09/25 H&P UPDATE INFORMATION: I have reviewed H&P completed within last 30 days, I have examined patient prior to procedure and No changes to prior documentation PREOP DIAGNOSIS: Right total knee arthroplasty arthrofibrosis PRIMARY INDICATION FOR PROCEDURE: Right total knee arthroplasty arthrofibrosis PLANNED PROCEDURE: Operation Date: 08/18/25 08:00 Proposed Procedures p knee manipulation under anesthesia(Right) - Dwayne Avila DO
[2025-08-18] MEDS: acetaminophen 1,000 MG/100 ML PIGGYBACK 400 MG IV (07:10)
--- NOTE | 2025-08-18 08:27 | XR_ITS ---
WS: [id number] Exam: XR knee RT 1-2V 00907 Date/Time of Exam: 08/18/2025 8:43 AM Reason For Exam: s/p manipulation Comparison 08/09/2025. Total knee replacement remains in excellent position. No sign of loosening or fracture. Large volume joint effusion in the suprapatellar bursa. Soft tissues are otherwise normal. XR/XR knee RT 1-2V [id number] IMPRESSION: 1. Intact total knee replacement. No complications. Large joint effusion.
--- NOTE | 2025-08-18 08:32 | P.BOP_ITS ---
Date of Procedure: 08/18/2025 Surgeon: Dwayne Avila DO Technical Support Assistant(s): None Procedure(s) performed: Right knee manipulation under anesthesia Findings of the procedure(s): Patient underwent procedure as planned without issues or complications range of motion was 10 to 80 degrees premanipulation postmanipulation 0-115/120 Estimated blood loss: 0 Specimen(s) removed: None Post-operative diagnosis: Right knee arthrofibrosis status post right total knee arthroplasty
--- NOTE | 2025-08-18 08:34 | P.OP_ITS ---
Operative Report Date of procedure: August 18, 2025 Surgeon: Dwayne Avila DO Procedure: Pre-op diagnosis: Right?knee?total joint arthroplasty arthrofibrosis Post-op diagnosis: Same Post-op findings: Arthrofibrosis significant decreased range of motion 10?80, manipulation as planned with significant improvement range of motion of 0-115/120 Procedure done: Right?knee?manipulation under anesthesia Surgeon: Dwayne Avila DO Student Records Coordinator: None Anesthesia: MAC IV fluids: See anesthesia record Complications: None Findings: See operative report narrative Condition: stable Disposition: same day Brief History: Patient is a 65-year-old female who status post right total?knee?arthroplasty she is developed?knee?arthrofibrosis her date of surgery was 06/15/2025.? her motion after roughly 8 weeks here postop she was found to still be roughly 5 - 85.? Given she is this point else and still has a pretty substantial block on her?knee?range of motion I think she is developed arthrofibrosis and I think she have significant benefit from a?knee?manipulation under anesthesia.? We talked about the ins and outs of procedure? the risk benefits complications alternatives surgery and through shared decision making she elects proceed with right?knee?manipulation under anesthesia.? Risk of surgery include not limited to make it better make it worse persistent?knee?arthrofibrosis, periprosthetic fracture, persistent pain,? Wound complications.? Understanding risk of surgery patient elects to proceed all questions answered. Procedure: Patient was seen eval in the preoperative holding area.? Consent was reviewed and signed with patient correct extremity was then marked.? Patient was then seen evaluate by anesthesia once cleared for surgery she was taken back to the operative suite she was kept on the [facility] she then underwent anesthesia per the anesthesia department.? Once appropriately anesthetized final timeout was performed.? And confirm the appropriate procedure. I then performed a standard evaluation of the right?knee?which patient had range of motion of 10 to 80 degrees of flexion today. I then subsequently utilizing a short lever arm keeping my right hand on the proximal tibia and the distal femur maintaining that short lever arm slowly performed a standard manipulation with palpable crepitus and audible breaking through the scar tissue to regain significant improved flexion range of motion.? I then did place a small roll of towels under the heel and performed a slight manipulation posteriorly with a short lever arm to achieve final full flexion.? No complications were noted.? Patient was able to achieve 0-115/120 for? range of motion satisfied with this range of motion, this was examined comparative to the contralateral?knee which after the manipulation the right knee had further range of motion than the left total knee arthroplasty which was excellent from 0-110. this completed the right?knee?manipulation under anesthesia.? Patient was awakened from anesthesia and taken to PACU in stable condition. Disposition: Patient taken to PACU in stable condition recovering well patient, patient will start CPM today and through the weekend and will start back up with physical the rapy on Thursday which she is already scheduled for.recommend ice as needed for pain and inflammation.? We will follow-up in the orthopedic office in 2 weeks.? All questions answered.
[2025-08-18] MEDS: fentaNYL 50 mcg/mL INJ 2mL IVP ×2 (08:40→08:50)
--- NOTE | 2025-08-18 08:43 | PC.NURSE ---
pain meds given talked to anesthesia about bp - watching after pain meds
[2025-08-18] MEDS: hyDRALAzine 20 mg/mL INJ 1 mL 10 MG IVP (09:12)
[2025-08-18] MEDS: HYDROcodone-acetaminophen 5-325 mg Tablet 1 TAB PO (09:38)
--- NOTE | 2025-08-18 10:15 | ANE.PACU2 ---
Inpatient post-anesthesia follow up: Airway intact: Yes Vital signs: Temperature 98.2 F Pulse Rate 88 Respiratory Rate 18 Blood Pressure 108/63 Pulse Oximetry 94 Oxygen Delivery Me thod Room Air Oxygen Flow Rate 6 Fraction of Inspir ed Oxygen Hydration adequate: Yes Nausea and vomiting: No Pain level: 1 Mental status: Baseline
== END 2025-08-18 10:15 | disposition home or self-care (01) ==
PROVIDERS: PCP Nurse Practitioner; Visit Provider Student in an Organized Health Care Education/Training Program
PROC: (CPT 29870; principal; 2025-08-18 08:00)
DX: T84.82XA Fibrosis due to internal orthopedic prosthetic devices, implants and grafts, initial encounter (principal); M24.661 Ankylosis, right knee; Y70.2 Prosthetic and other implants, materials and accessory anesthesiology devices associated with adverse incidents; I10 Essential (primary) hypertension; E03.9 Hypothyroidism, unspecified; G47.33 Obstructive sleep apnea (adult) (pediatric); Z99.89 Dependence on other enabling machines and devices; K21.9 Gastro-esophageal reflux disease without esophagitis; Z79.891 Long term (current) use of opiate analgesic; E66.9 Obesity, unspecified; Z68.31 Body mass index [BMI] 31.0-31.9, adult; E78.2 Mixed hyperlipidemia; F41.9 Anxiety disorder, unspecified; Z87.891 Personal history of nicotine dependence; Z86.14 Personal history of Methicillin resistant Staphylococcus aureus infection
CPT/HCPCS: 27570; 73560; J0131; J0360; J2250; J2704; J3010; J7030; J9999

== ENCOUNTER → 2025-08-30 14:39 | Outpatient (BNVA) | payer MEDICARE, OTHER, SELFPAY | PROVIDERS: PCP Nurse Practitioner; Visit Provider Physician Assistant | DX: Z98.890 Other specified postprocedural states (principal); Z96.651 Presence of right artificial knee joint | CPT/HCPCS: 73560; 73565; 99024 ==

== ENCOUNTER 2025-09-13 15:07 | Outpatient (RCR) | payer MEDICARE, OTHER, SELFPAY | END 2025-09-13 23:59 | disposition home or self-care (01) | LOC: APT 15:07 | PROVIDERS: PCP Nurse Practitioner; Visit Provider Student in an Organized Health Care Education/Training Program | DX: Z47.1 Aftercare following joint replacement surgery (principal); Z96.651 Presence of right artificial knee joint; I10 Essential (primary) hypertension; R55 Syncope and collapse; I47.20 Ventricular tachycardia, unspecified; E78.5 Hyperlipidemia, unspecified | CPT/HCPCS: 97110; 97140; 97530; 99214 ==